=== PATIENT | female | born 1950 | race American Indian/Alaskan Native ===

== ENCOUNTER 2020-11-14 13:33 | Inpatient (IN) | payer SELFPAY ==
--- NOTE | 2020-11-14 13:36 | Emergency Department Report ---
HPI - General Time Seen by Provider: 11/14/20 13:33 - HPI HPI: This is a 70-year-old -[place] female who presents to the emergency department with altered mental status, a right-sided facial droop, and a left- sided gaze preference. The patient is unknown to me and does not appear to have been to this emergency department or hospital previously. Per EMS and family, the patient's last known well time was about 8 PM last night. She had not yet come out of her room or "woken up" yet for the day so the family became concerned and went to check on her and found her unresponsive. EMS found the patient to have a critically low blood sugar level and the patient was given an amp of D50. After receiving the glucose her blood sugar went up to about 250 but the patient did not have any change in her mental status. Per EMS, family says that she currently has some type of cancer that is not currently being treated. She also allegedly has a history of a previous CVA but it is unknown if she has any residual deficits. However family told EMS that she normally does ambulate and converse. I was later able to speak with the patient's daughter. The patient does have a history of a CVA from 2 years ago that left her with only some very mild aphasia in which "she sometimes has trouble getting the words out but eventually does." She has a history of primary lung cancer and the daughter says that it recently spread "everywhere." She is not a tobacco smoker. No known drug allergies. The patient is normally ambulatory and conversive without any altered mental status. ED Review of Systems ROS: Stated complaint: POSSIBLE STROKE Other details as noted in HPI Comment: Unobtainable due to pts medical conditions Physical Exam - Physical Exam Physical Exam: GENERAL: The patient is ill-appearing. HENT: Normocephalic. Atraumatic. Patient has moist mucous membranes. EYES: Pupils equal reactive to light bilaterally. Left-sided gaze preference. NECK: Supple. Trachea is midline. CHEST/LUNGS: Clear to auscultation. Shallow breaths with snoring respirations. HEART/CARDIOVASCULAR: Regular. There is no tachycardia. There is no murmur. ABDOMEN: Abdomen is soft, nontender. Patient has normal bowel sounds. There is no abdominal distention. SKIN: Skin is warm and dry. Patient has multiple soft tissue tumor-like growths around her neck. NEURO: Patient's eyes are open spontaneously but otherwise she appears nonresponsive. Nonverbal. Right-sided facial droop. She is nonresponsive to verbal or tactile stimuli. MUSCULOSKELETAL: There is no obvious deformity. ED Course - Consultations Consultation #1: 11/14/20 14:11 Patient was seen by the telemedicine neurologist to asked for the patient to receive a CT angiography of the head and neck to evaluate for large vessel occlusion. Both the neurologist, as well as the radiologist, read the CT scan as showing a subacute infarct, a chronic infarct, and a calcified meningioma. - ABG Interpretation Ph: 7.37 PCO2: 45 PO2: 71 Bicarbonate: 25 Interpretation: other (Mild hypoxemia) - Intubation Time Out Performed: Yes Sedative: Etomidate Mg Given: 20 Paralytic: Succinylcholine Mg Given: 70 Laryngoscope: Marco Size: 4 ET Tube Size: 7.5 Tube Secured Depth (cm): 24 Tube Secured Location: lips Tube Placement Confirmation: visualized tube passing t, equal breath sounds bilat, no breath sounds over epi, confirmation by capnometr Patient Tolerated Procedure: well Intubation Complications: none ED Medical Decision Making - Lab Data Result diagrams: 11/14/20 14:06 11/14/20 14:06 Lab Results 11/14/20 11/14/20 11/14/20 Range/Units 14:00 14:06 14:06 WBC 10.7 (4.5-11.0) K/mm3 RBC 5.27 H (3.65-5.03) M/mm3 Hgb 14.7 H (10.1-14.3) gm/dl Hct 43.7 H (30.3-42.9) % MCV 83 (79-97) fl MCH 28 (28-32) pg MCHC 34 (30-34) % RDW 15.8 H (13.2-15.2) % Plt Count 294 (140-440) K/mm3 Lymph % (Auto) 6.2 L (13.4-35.0) % [place] % (Auto) 4.5 (0.0-7.3) % Eos % (Auto) 0.0 (0.0-4.3) % Baso % (Auto) 0.1 (0.0-1.8) % Lymph # (Auto) 0.7 L (1.2-5.4) K/mm3 [place] # (Auto) 0.5 (0.0-0.8) K/mm3 Eos # (Auto) 0.0 (0.0-0.4) K/mm3 Baso # (Auto) 0.0 (0.0-0.1) K/mm3 Seg Neutrophils % 89.2 H (40.0-70.0) % Seg Neutrophils # 9.5 H (1.8-7.7) K/mm3 PT 12.8 (12.2-14.9) Sec. INR 0.98 (0.87-1.13) APTT 26.0 (24.2-36.6) Sec. Thrombin Time 19.8 H (15.1-19.6) Sec. ABG pH (7.320-7.450) POC ABG pCO2 (32.0-48.0) mmHg POC ABG pO2 (83-108) mmHg POC ABG HCO3 ABG O2 Saturation (0-100) POC ABG Base Excess ABG Hemoglobin (12.0-17.5) ABG Oxyhemoglobin (94-98) ABG Methemoglobin (0.0-1.5) ABG Sodium (136.0-145.0) mmol/L ABG Potassium (3.40-4.50) mmol/L ABG Chloride (98-107) mmol/L ABG Glucose (65-95) mg/dL Carboxyhemoglobin (0.5-1.5) FiO2 % Sodium (137-145) mmol/L Potassium (3.6-5.0) mmol/L Chloride (98-107) mmol/L Carbon Dioxide (22-30) mmol/L Anion Gap mmol/L BUN (7-17) mg/dL Creatinine (0.6-1.2) mg/dL Estimated GFR ml/min BUN/Creatinine Ratio % Glucose (65-100) mg/dL POC Glucose 150 H (70-105) mg/dL Calcium (8.4-10.2) mg/dL Total Bilirubin (0.1-1.2) mg/dL AST (5-40) units/L ALT (7-56) units/L Alkaline Phosphatase (35-129) units/L Ammonia (25-60) umol/L Total Creatine Kinase (30-135) units/L CK-MB (CK-2) (0.0-4.0) ng/mL CK-MB (CK-2) Rel Index (0-4) Troponin T (0.00-0.029) ng/mL Total Protein (6.3-8.2) g/dL Albumin (3.9-5) g/dL Albumin/Globulin Ratio % TSH (0.270-4.200) mlU/mL Arterial Blood Glucose (65-95) mg/dL Arterial Blood Ionized Calcium (4.6-5.3) mg/dL Urine Color (Yellow) Urine Turbidity (Clear) Urine pH (5.0-7.0) Ur Specific [place] (1.003-1.030) Urine Protein (Negative) mg/dL Urine Glucose (UA) (Negative) mg/dL Urine Ketones (Negative) mg/dL Urine Blood (Negative) Urine Nitrite (Negative) Urine Bilirubin (Negative) Urine Urobilinogen (<2.0) mg/dL Ur Leukocyte Esterase (Negative) Urine WBC (Auto) (0.0-6.0) /HPF Urine RBC (Auto) (0.0-6.0) /HPF U Epithel Cells (Auto) (0-13.0) /HPF Urine Mucus /HPF Urine Opiates Screen Urine Methadone Screen Ur Barbiturates Screen Ur Phencyclidine Scrn Ur Amphetamines Screen U Benzodiazepines Scrn Urine Cocaine Screen U Marijuana (THC) Screen Drugs of Abuse Note Plasma/Serum Alcohol (0-0.07) % 11/14/20 11/14/20 11/14/20 Range/Units 14:06 14:06 14:06 WBC (4.5-11.0) K/mm3 RBC (3.65-5.03) M/mm3 Hgb (10.1-14.3) gm/dl Hct (30.3-42.9) % MCV (79-97) fl MCH (28-32) pg MCHC (30-34) % RDW (13.2-15.2) % Plt Count (140-440) K/mm3 Lymph % (Auto) (13.4-35.0) % [place] % (Auto) (0.0-7.3) % Eos % (Auto) (0.0-4.3) % Baso % (Auto) (0.0-1.8) % Lymph # (Auto) (1.2-5.4) K/mm3 [place] # (Auto) (0.0-0.8) K/mm3 Eos # (Auto) (0.0-0.4) K/mm3 Baso # (Auto) (0.0-0.1) K/mm3 Seg Neutrophils % (40.0-70.0) % Seg Neutrophils # (1.8-7.7) K/mm3 PT (12.2-14.9) Sec. INR (0.87-1.13) APTT (24.2-36.6) Sec. Thrombin Time (15.1-19.6) Sec. ABG pH (7.320-7.450) POC ABG pCO2 (32.0-48.0) mmHg POC ABG pO2 (83-108) mmHg POC ABG HCO3 ABG O2 Saturation (0-100) POC ABG Base Excess ABG Hemoglobin (12.0-17.5) ABG Oxyhemoglobin (94-98) ABG Methemoglobin (0.0-1.5) ABG Sodium (136.0-145.0) mmol/L ABG Potassium (3.40-4.50) mmol/L ABG Chloride (98-107) mmol/L ABG Glucose (65-95) mg/dL Carboxyhemoglobin (0.5-1.5) FiO2 % Sodium 129 L (137-145) mmol/L Potassium 5.0 (3.6-5.0) mmol/L Chloride 93 L (98-107) mmol/L Carbon Dioxide 23 (22-30) mmol/L Anion Gap 18 mmol/L BUN 9 (7-17) mg/dL Creatinine 0.6 (0.6-1.2) mg/dL Estimated GFR > 60 ml/min BUN/Creatinine Ratio 15 % Glucose 155 H (65-100) mg/dL POC Glucose (70-105) mg/dL Calcium 8.9 (8.4-10.2) mg/dL Total Bilirubin 0.60 (0.1-1.2) mg/dL AST 38 (5-40) units/L ALT 16 (7-56) units/L Alkaline Phosphatase 92 (35-129) units/L Ammonia 33.0 (25-60) umol/L Total Creatine Kinase 185 H (30-135) units/L CK-MB (CK-2) 1.1 (0.0-4.0) ng/mL CK-MB (CK-2) Rel Index 0.5 (0-4) Troponin T 0.010 (0.00-0.029) ng/mL Total Protein 10.4 H (6.3-8.2) g/dL Albumin 3.7 L (3.9-5) g/dL Albumin/Globulin Ratio 0.6 % TSH (0.270-4.200) mlU/mL Arterial Blood Glucose (65-95) mg/dL Arterial Blood Ionized Calcium (4.6-5.3) mg/dL Urine Color (Yellow) Urine Turbidity (Clear) Urine pH (5.0-7.0) Ur Specific [place] (1.003-1.030) Urine Protein (Negative) mg/dL Urine Glucose (UA) (Negative) mg/dL Urine Ketones (Negative) mg/dL Urine Blood (Negative) Urine Nitrite (Negative) Urine Bilirubin (Negative) Urine Urobilinogen (<2.0) mg/dL Ur Leukocyte Esterase (Negative) Urine WBC (Auto) (0.0-6.0) /HPF Urine RBC (Auto) (0.0-6.0) /HPF U Epithel Cells (Auto) (0-13.0) /HPF Urine Mucus /HPF Urine Opiates Screen Urine Methadone Screen Ur Barbiturates Screen Ur Phencyclidine Scrn Ur Amphetamines Screen U Benzodiazepines Scrn Urine Cocaine Screen U Marijuana (THC) Screen Drugs of Abuse Note Plasma/Serum Alcohol 0.01 (0-0.07) % 11/14/20 11/14/20 11/14/20 Range/Units 14:06 14:42 14:48 WBC (4.5-11.0) K/mm3 RBC (3.65-5.03) M/mm3 Hgb (10.1-14.3) gm/dl Hct (30.3-42.9) % MCV (79-97) fl MCH (28-32) pg MCHC (30-34) % RDW (13.2-15.2) % Plt Count (140-440) K/mm3 Lymph % (Auto) (13.4-35.0) % [place] % (Auto) (0.0-7.3) % Eos % (Auto) (0.0-4.3) % Baso % (Auto) (0.0-1.8) % Lymph # (Auto) (1.2-5.4) K/mm3 [place] # (Auto) (0.0-0.8) K/mm3 Eos # (Auto) (0.0-0.4) K/mm3 Baso # (Auto) (0.0-0.1) K/mm3 Seg Neutrophils % (40.0-70.0) % Seg Neutrophils # (1.8-7.7) K/mm3 PT (12.2-14.9) Sec. INR (0.87-1.13) APTT (24.2-36.6) Sec. Thrombin Time (15.1-19.6) Sec. ABG pH 7.37 (7.320-7.450) POC ABG pCO2 45.9 (32.0-48.0) mmHg POC ABG pO2 71.3 L (83-108) mmHg POC ABG HCO3 25.9 ABG O2 Saturation 93.5 (0-100) POC ABG Base Excess 0.3 ABG Hemoglobin 12.6 (12.0-17.5) ABG Oxyhemoglobin 92.6 L (94-98) ABG Methemoglobin 0.3 (0.0-1.5) ABG Sodium 136.5 (136.0-145.0) mmol/L ABG Potassium 3.5 (3.40-4.50) mmol/L ABG Chloride 103.0 (98-107) mmol/L ABG Glucose 118 H (65-95) mg/dL Carboxyhemoglobin 0.7 (0.5-1.5) FiO2 % 40 Sodium (137-145) mmol/L Potassium (3.6-5.0) mmol/L Chloride (98-107) mmol/L Carbon Dioxide (22-30) mmol/L Anion Gap mmol/L BUN (7-17) mg/dL Creatinine (0.6-1.2) mg/dL Estimated GFR ml/min BUN/Creatinine Ratio % Glucose (65-100) mg/dL POC Glucose (70-105) mg/dL Calcium (8.4-10.2) mg/dL Total Bilirubin (0.1-1.2) mg/dL AST (5-40) units/L ALT (7-56) units/L Alkaline Phosphatase (35-129) units/L Ammonia (25-60) umol/L Total Creatine Kinase (30-135) units/L CK-MB (CK-2) (0.0-4.0) ng/mL CK-MB (CK-2) Rel Index (0-4) Troponin T (0.00-0.029) ng/mL Total Protein (6.3-8.2) g/dL Albumin (3.9-5) g/dL Albumin/Globulin Ratio % TSH 1.450 (0.270-4.200) mlU/mL Arterial Blood Glucose 118 H (65-95) mg/dL Arterial Blood Ionized Calcium 4.4 L (4.6-5.3) mg/dL Urine Color (Yellow) Urine Turbidity (Clear) Urine pH (5.0-7.0) Ur Specific [place] (1.003-1.030) Urine Protein (Negative) mg/dL Urine Glucose (UA) (Negative) mg/dL Urine Ketones (Negative) mg/dL Urine Blood (Negative) Urine Nitrite (Negative) Urine Bilirubin (Negative) Urine Urobilinogen (<2.0) mg/dL Ur Leukocyte Esterase (Negative) Urine WBC (Auto) (0.0-6.0) /HPF Urine RBC (Auto) (0.0-6.0) /HPF U Epithel Cells (Auto) (0-13.0) /HPF Urine Mucus /HPF Urine Opiates Screen Presumptive negative Urine Methadone Screen Presumptive negative Ur Barbiturates Screen Presumptive negative Ur Phencyclidine Scrn Presumptive negative Ur Amphetamines Screen Presumptive negative U Benzodiazepines Scrn Presumptive negative Urine Cocaine Screen Presumptive negative U Marijuana (THC) Screen Presumptive negative Drugs of Abuse Note Disclamer Plasma/Serum Alcohol (0-0.07) % 11/14/20 Range/Units 16:01 WBC (4.5-11.0) K/mm3 RBC (3.65-5.03) M/mm3 Hgb (10.1-14.3) gm/dl Hct (30.3-42.9) % MCV (79-97) fl MCH (28-32) pg MCHC (30-34) % RDW (13.2-15.2) % Plt Count (140-440) K/mm3 Lymph % (Auto) (13.4-35.0) % [place] % (Auto) (0.0-7.3) % Eos % (Auto) (0.0-4.3) % Baso % (Auto) (0.0-1.8) % Lymph # (Auto) (1.2-5.4) K/mm3 [place] # (Auto) (0.0-0.8) K/mm3 Eos # (Auto) (0.0-0.4) K/mm3 Baso # (Auto) (0.0-0.1) K/mm3 Seg Neutrophils % (40.0-70.0) % Seg Neutrophils # (1.8-7.7) K/mm3 PT (12.2-14.9) Sec. INR (0.87-1.13) APTT (24.2-36.6) Sec. Thrombin Time (15.1-19.6) Sec. ABG pH (7.320-7.450) POC ABG pCO2 (32.0-48.0) mmHg POC ABG pO2 (83-108) mmHg POC ABG HCO3 ABG O2 Saturation (0-100) POC ABG Base Excess ABG Hemoglobin (12.0-17.5) ABG Oxyhemoglobin (94-98) ABG Methemoglobin (0.0-1.5) ABG Sodium (136.0-145.0) mmol/L ABG Potassium (3.40-4.50) mmol/L ABG Chloride (98-107) mmol/L ABG Glucose (65-95) mg/dL Carboxyhemoglobin (0.5-1.5) FiO2 % Sodium (137-145) mmol/L Potassium (3.6-5.0) mmol/L Chloride (98-107) mmol/L Carbon Dioxide (22-30) mmol/L Anion Gap mmol/L BUN (7-17) mg/dL Creatinine (0.6-1.2) mg/dL Estimated GFR ml/min BUN/Creatinine Ratio % Glucose (65-100) mg/dL POC Glucose (70-105) mg/dL Calcium (8.4-10.2) mg/dL Total Bilirubin (0.1-1.2) mg/dL AST (5-40) units/L ALT (7-56) units/L Alkaline Phosphatase (35-129) units/L Ammonia (25-60) umol/L Total Creatine Kinase (30-135) units/L CK-MB (CK-2) (0.0-4.0) ng/mL CK-MB (CK-2) Rel Index (0-4) Troponin T (0.00-0.029) ng/mL Total Protein (6.3-8.2) g/dL Albumin (3.9-5) g/dL Albumin/Globulin Ratio % TSH (0.270-4.200) mlU/mL Arterial Blood Glucose (65-95) mg/dL Arterial Blood Ionized Calcium (4.6-5.3) mg/dL Urine Color Yellow (Yellow) Urine Turbidity Clear (Clear) Urine pH 6.0 (5.0-7.0) Ur Specific [place] 1.015 (1.003-1.030) Urine Protein 30 mg/dl (Negative) mg/dL Urine Glucose (UA) 150 (Negative) mg/dL Urine Ketones Neg (Negative) mg/dL Urine Blood Neg (Negative) Urine Nitrite Neg (Negative) Urine Bilirubin Neg (Negative) Urine Urobilinogen < 2.0 (<2.0) mg/dL Ur Leukocyte Esterase Neg (Negative) Urine WBC (Auto) 1.0 (0.0-6.0) /HPF Urine RBC (Auto) 1.0 (0.0-6.0) /HPF U Epithel Cells (Auto) < 1.0 (0-13.0) /HPF Urine Mucus Few /HPF Urine Opiates Screen Urine Methadone Screen Ur Barbiturates Screen Ur Phencyclidine Scrn Ur Amphetamines Screen U Benzodiazepines Scrn Urine Cocaine Screen U Marijuana (THC) Screen Drugs of Abuse Note Plasma/Serum Alcohol (0-0.07) % - Radiology Data Radiology results: report reviewed, image reviewed interpreted by me: Chest x-ray shows appropriate placement of the endotracheal tube just above the viral. No obvious pneumonia. No pneumothorax. CT head/brain wo con INDICATION / CLINICAL INFORMATION: 70 years Female; MAIN. TECHNIQUE: Routine CT head without contrast. All CT scans at this location are performed using CT dose reduction for ALARA by means of automated exposure cont rol. COMPARISON: None. FINDINGS: BRAIN / INTRACRANIAL CONTENTS: There is an older infarct involving the right basal ganglia with encephalomalacia and mild ex vacuo dilatation of the anterior right lateral ventricle. However, th ere is less distinct decreased attenuation along the anterior right periventricular region measuring 2.7 cm AP indicative of more subacute infarct at. There is relative preservation of the posterior right putamen. There are chronic ischemic changes along the left posterior periventricular region. There is otherwise mild cerebral white matter disease most consistent with microvascular angiopathy. There is a calcified lesion along the posterior left cerebellum measuring 2.3 cm transversely most consistent with a meningioma. This finding results in mass effect upon the posterior left cerebellum without significant vasogenic edema. There is no clear CT evidence of acute intracranial hemorrhage. ORBITS: No significant abnormality of visualized orbits. SINUSES / MASTOIDS: No significant abnormality in the visualized paranasal sinuses or mastoid air cells. CRANIOCERV ICAL JUNCTION: No significant abnormality. ADDITIONAL FINDINGS: There is mild incidental hyperostosis frontalis interna. There are also multiple well- circumscribed nodules involving scalp which also appear to be incidental and may reflect sebaceous cysts. IMPRESSION: 1. The findings are indicative of subacute infarct along the anterior right periventricular region as detailed above. There is a more chronic appearing infarct along the adjacent right basal ganglia. 2. The findings are most consistent with a 2.3 cm calcified meningioma along the posterior left cerebellum. CT angio head INDICATION / CLINICAL INFORMATION: 70 years Female; MAIN. TECHNIQUE: Thin cut axial images obtained through the head during IV bolus contrast administration. Sagittal, coronal, and 3 plane MIP reconstructions performed by the technologist. NASCET type criteria used evaluate stenoses. Automated exposure control utilized for radiation reduction purposes. COMPARISON: None available. FINDINGS: INTERNAL CAROTID ARTERIES: No hemodynamically significant narrowing appreciated. However, there is mild narrowing in the anterior genu of the cavernous portion of the right internal c arotid artery related to atherosclerotic disease. Overall, the atherosclerotic disease is greater on the right than the left. The left internal carotid artery is dominant when compared with the right, related to hypoplastic A1 segment on the right. VERTEBROBASILAR SYSTEM: No significant narrowing appreciated. DISTAL BRANCHES: Distal branches of the anterior, middle, and posterior cerebral arteries are fairly symmetric in appearance and number. As noted above, the A1 segment on the right is hypoplastic. Mild to moderate narrowing is seen in the distal M1 segment on the left. No signs of thrombus appreciated. Areas of mild narrowing are seen in the proximal posterior cerebral arteries bilaterally. ANEURYSM: None identified. ADDITIONAL FINDINGS: Old corpus striatal infarct suggested on the right. Developmental venous anomaly seen in the inferior temporal gyrus on the left, somewhat anteriorly. Presumed meningioma seen along the lateral aspect of the tentorium cerebelli on the left, projecting into the adjacent posterior fossa. There is mass effect on the left transverse sinus. The right transverse sinus and right internal jugular veins are asymmetrically prominent, compared with the left. Subcutaneous, well-circumscribed, areas of soft tissue swelling seen on the left. Findings may be related to small sebaceous cysts. However, clinical correlation is recommended. No signs of under lying calvarial abnormality. Similar findings seen elsewhere along the calvarium, bilaterally. Small, well-circumscribed parotid lesions seen peripherally on the left, superficially-pleomorphic adenoma might be considered. IMPRESSION: 1. No signs of large vessel occlusion by thrombus on this CTA of the head. 2. Area of narrowing identified, as described above. 3. Subcutaneous nodules and left parotid lesion, as described above. In addition to the above- mentioned diagnoses, metastatic disease has to be considered, given findings on this CTA of the neck, there is suggestion of diffuse lung parenchymal and subcutaneous nodules. CTA neck without and with intravenous contrast material CLINICAL HISTORY: MAIN TECHNIQUE: Following acquisition of a timing bolus 0.625 mm thick contiguous axial scans were obtained from aortic arch to the skull base during rapid bolus intravenous contrast infusion. In addition to evaluation of axial source images multiplanar reconstructions were produced and reviewed for this report. 3 plane MIP reconstructions were produced and reviewed. Contrast dose report: Omnipaque 350: 100 ml, administered intravenously All CT examinations performed at this facility utilize modulated dose reduction, iterative reconstruction or weight- based dosing, as appropriate, to obtain a radiation dose which is as low as can reasonably be achieved. FINDINGS: Thoracic aorta:No abnormalities are identified along the course of the thoracic aorta..The origins of the great vessels have an unremarkable appearance. Brachiocephalic artery, left common carotid artery origin and left subclavian artery all have an unremarkable appearance. Right carotid artery:No abnormalities are seen along the course of the RCCA, at the right carotid bifurcation or along the cervical portions of the SINTIA. Left carotid artery: No abnormalities are noted along the course of the left common carotid artery, at the left carotid bifurcation or along the course of the cervical segments of the LICA. Posterior circulation:The vertebral arteries have an unremarkable appearance. Both vertebral arteries contribute to the basilar artery origin. The basilar artery has an unremarkable appearance. The degree of stenosis, if any, is determined utilizing NASCET like criteria. In this case there is no indication of hemodynamically significant stenosis at the carotid bifurcations or elsewhere. Evaluation of the lungs is remarkable for multiple (too numerous to count) metastatic deposits ranging in size from several millimeters in diameter up to 3.5 cm in greatest dimension. Additionally noted is a large is dominant mass located posterior to the viral. Based on location of the nasogastric tube this large mass displaces the esophagus infarct the left of the midline. The mass produces prominent compression of the right and left main bronchi, left lower lobe bronchus and bronchus intermedius. These findings reflect the presence of extensive pulmonary and mediastinal metastases. Multiple low-attenuation lesions are seen within the thyroid gland. Multinodular goiter could be considered. In light of findings in the lung apices the possibility of metastatic disease to the thyroid gland is considered. There is a large mass in the right supraclavicular fossa likely a conglomerate aydee metastasis. Multiple subcutaneous metastases are also observed. Evaluation of the cervical spine is remarkable for widespread cervical spondylosis. IMPRESSION: 1. No indication of hemodynamically significant stenosis at the carotid bifurcations or elsewhere. 2. Widespread metastatic disease to lung, superior mediastinum, right supraclavicular fossa and possibly thyroid gland. In addition innumerable subcutaneous metastases are identified. - Medical Decision Making This patient presents to the emergency department as a code stroke. Family found her unresponsive this morning/early afternoon after having a last known well time of last night around 8 PM. Initially EMS found the patient to have hypoglycemia with a critically low blood sugar. After receiving a dose of D50 the patient's blood sugar went up to around 200 but the patient still had deficits. The patient is nonverbal with a right-sided facial droop and a left-sided gaze preference. She had a CT scan of the head without contrast that did not show any bleed or l arge vessel occlusion. She was seen by the telemedicine neurologist to recommended CT angiography studies of the head and neck. Shortly after returning from the initial CT scan of the head without contrast the patient began having snoring respirations and very shallow breaths. She was intubated for protection of airway. Chest x-ray shows appropriate placement of the endotracheal tube. No pneumonia or pneumothorax. Patient later had CT angiography of the head and neck that does not show any large vessel occlusion but there are multiple areas of metastasis throughout the head and neck. The patient's labs have been mostly unremarkable. She is currently on a propofol drip for sedation. [facility] has been contacted and consulted. The patient has been accepted for admission by the hospitalist, Dr. Salmeron. Critical Care Time: Yes Critical care time in (mins) excluding proc time.: 40 Critical care attestation.: If time is entered above; I have spent that time in minutes in the direct care of this critically ill patient, excluding procedure time. Critical care time was spent on this patient in doing her initial evaluation, multiple reevaluations, ordering and interpretation of labs and imaging, discussion with the telemedicine neurologist, discussion with the patient's daughter. This does not include the time spent doing the intubation procedure. Critical Care Time: 40 minutes ED Disposition Clinical Impression: Acute hypoxemic respiratory failure, Metabolic encephalopathy CVA (cerebral vascular accident) Qualifiers: CVA mechanism: unspecified Qualified Code(s): I63.9 - Cerebral infarction, unspecified Metastatic lung cancer (metastasis from lung to other site) Qualifiers: Laterality: right Qualified Code(s): C34.91 - Malignant neoplasm of unspecified part of right bronchus or lung Disposition: OP ADMIT IP TO THIS HOSP Is pt being admited?: Yes Condition: Serious Time of Disposition: 18:09
[2020-11-14] MEDS ORDERED: ETOMIDATE 20 MG/10 ML INJ IV ONE ×2 (13:50)
[2020-11-14] MEDS ORDERED: SUCCINYLCHOLINE CHLORIDE 200 MG/10 ML INJ MDV ONE (13:50)
[2020-11-14] MEDS ORDERED: LIP THERAPY VASELINE TP PRN (14:00)
[2020-11-14] MEDS ORDERED: MIDAZOLAM 5 MG/5 ML INJ MDV IV NR (14:00)
[2020-11-14] MEDS ORDERED: MINERAL OIL/PETROLATUM, WHITE OPHTH OINT 3.5 GM OU PRN (14:00)
[2020-11-14] MEDS ORDERED: MIDAZOLAM 2 MG/2 ML INJ IV SCH (14:00)
--- NOTE | 2020-11-14 14:03 | Cat Scan Report ---
CT head/brain wo con INDICATION / CLINICAL INFORMATION: 70 years Female; MAIN. TECHNIQUE: Routine CT head without contrast. All CT scans at this location are performed using CT dos e reduction for ALARA by means of automated exposure control. COMPARISON: None. FINDINGS: BRAIN / INTRACRANIAL CONTENTS: There is an older infarct involving the right basal ganglia with encep halomalacia and mild ex vacuo dilatation of the anterior right lateral ventricle. However, there is l ess distinct decreased attenuation along the anterior right periventricular region measuring 2.7 cm A P indicative of more subacute infarct at. There is relative preservation of the posterior right putam en. There are chronic ischemic changes along the left posterior periventricular region. There is otherwise mild cerebral white matter disease most consistent with microvascular angiopathy. There is a calcified lesion along the posterior left cerebellum measuring 2.3 cm transversely most co nsistent with a meningioma. This finding results in mass effect upon the posterior left cerebellum wi thout significant vasogenic edema. There is no clear CT evidence of acute intracranial hemorrhage. ORBITS: No significant abnormality of visualized orbits. SINUSES / MASTOIDS: No significant abnormality in the visualized paranasal sinuses or mastoid air cassandra ls. CRANIOCERVICAL JUNCTION: No significant abnormality. ADDITIONAL FINDINGS: There is mild incidental hyperostosis frontalis interna. There are also multiple well-circumscribed nodules involving scalp which also appear to be incidental and may reflect sebace ous cysts. IMPRESSION: 1. The findings are indicative of subacute infarct along the anterior right periventricular region as detailed above. There is a more chronic appearing infarct along the adjacent right basal ganglia. 2. The findings are most consistent with a 2.3 cm calcified meningioma along the posterior left cereb ellum. The study was specified as code stroke and called emergently to the ER at 12:37 PM Central standard t katey. Signer Name: Vignesh Lyn MD Signed: 11/14/2020 1:58 PM Workstation Name: [id number]
--- NOTE | 2020-11-14 14:06 | Consultation ---
History of Present Illness History of present illness: [facility] Consult Note # Demographics Consult Type: Acute Stroke Level 2 (4.5-24 hrs) Patient Location: Emergency Room First Name: Alexandra Last Name: Brown Date of : 1950 Age: 70 Gender: Female Time of Initial Page ( Time): 11/14/2020, 13:35 Time of Return Call ( Time): 11/14/2020, 13:35 # HPI History: 70 year-old female was found down unresponsive this morning. Mental status did not improved with correction of hypoglycemia. She has fixed left gaze. NIHSS is 26. Head CT with a left cerebellar hyperdensity suggestive of a calcified meningioma (prelim review, need formal radiology read). # Scores Time of exam and NIHSS ( Time): 11/14/2020, 13:37 Level of Consciousness 1a: [3] = Responds only with reflex motor or unresponsive LOC Questions 1b: [2] = Answers neither correctly LOC Commands 1c: [2] = Performs neither correctly Best Gaze 2: [2] = Forced deviation Visual 3: [0] = No visual loss Facial Palsy 4: [0] = Normal symmetrical movements Motor Arm Left 5a: [3] = No effort against gravity Motor Arm Right 5b: [3] = No effort against gravity Motor Leg Left 6a: [3] = No effort against gravity Motor Leg Right 6b: [3] = No effort against gravity Limb Ataxia 7: [0] = Absent Sensory 8: [0] = Normal Best Language 9: [3] = Mute Dysarthria 10: [2] = Severe dysarthria Extinction and Inattention 11: [0] = No abnormality NIHSS Total: 26 # Exam Vitals: vital signs reviewed # Assessment Impression: Acute encephalopathy with left gaze deviation - concerning for stroke or seizure # Plan Thrombolytic/Intervention: NOT IV Thrombolytic or IA Intervention Thrombolytic Exclusion: > 4.5 hours Intraarterial Exclusion: CTA pending Labs: CBC, comprehensive metabolic panel, hemoglobin A1c, lipid panel Imaging: (urgency: STAT in ED): CT Angiogram Head and CT Angiogram Neck AND call back with results if abnormal Imaging: (urgency: routine admission): MRI Brain without contrast Diagnostic Test: echo without bubble study Therapy/Evaluation: NPO until swallow evaluation, PT/OT evaluation, speech/swallow consultation Medication: aspirin 325 mg daily, start statin with goal of LDL < 70 Other: permissive hypertension, telemetry monitoring, I have discussed my recommendations with the referring provider Disposition: admit Medications and Allergies Active Meds: Active Medications Hydrophilic Ointment (Lip Therapy Vaseline) 1 applic TP Q2HR PRN PRN Reason: Dry Lips Propofol (Diprivan 10 Mg/Ml) 1,000 mg in 100 mls @ 0 mls/hr IV TITR GLORIA; Protocol Midazolam HCl (Midazolam 5 Mg/5 Ml Inj Mdv) 2 mg IV ONCE NR Multi-Ingred Cream/Lotion/Oil/Oint (Mineral Oil/Petrolatum, White Ophth Oint 3.5 Gm) 1 applic OU Q4HR PRN PRN Reason: Dry Eye(s)
[2020-11-14] MEDS ORDERED: SUCCINYLCHOLINE CHLORIDE 200 MG/10 ML INJ MDV IV ONE (14:11)
[2020-11-14 14:21] LABS: Basophils % (Auto) 0.1 % (0.0-1.8); Hematocrit 43.7 % (30.3-42.9); Hemoglobin 14.7 gm/dl (10.1-14.3); Lymphocytes # (Auto) 0.7 K/mm3 (1.2-5.4); Lymphocytes % (Auto) 6.2 % (13.4-35.0); Mean Corpuscular HGB Conc 34 % (30-34); Mean Corpuscular Volume 83 fl (79-97); Monocytes # (Auto) 0.5 K/mm3 (0.0-0.8); Monocytes % (Auto) 4.5 % (0.0-7.3); Platelet Count 294 K/mm3 (140-440); Red Blood Count 5.27 M/mm3 (3.65-5.03); Red Cell Distribution Width 15.8 % (13.2-15.2)
[2020-11-14 14:33] LABS: INR 0.98 (0.87-1.13)
[2020-11-14 14:34] LABS: Thrombin Time 19.8 Sec. (15.1-19.6)
--- NOTE | 2020-11-14 14:34 | XRay Report ---
CHEST 1 VIEW INDICATION / CLINICAL INFORMATION: ETT placement. COMPARISON: None available. FINDINGS: SUPPORT DEVICES: Tracheal tube, nasogastric tube HEART / MEDIASTINUM: No significant abnormality. LUNGS / PLEURA: Numerous pulmonary nodules with a large right infrahilar mass No pneumothorax. ADDITIONAL FINDINGS: No significant additional findings. IMPRESSION: Endotracheal tube has been placed and is approximately 2 cm above the viral. Numerous pulmonary nodu les and masses are seen Signer Name: Kennedy Quintero MD FACR Signed: 11/14/2020 2:30 PM Workstation Name: [id number]
--- NOTE | 2020-11-14 14:36 | XRay Report ---
ABDOMEN ONE VIEW INDICATION / CLINICAL INFORMATION: OG tube placement. COMPARISON: None available. FINDINGS: Nasogastric tube is present with the tip superimposed over the expected position of the gastric body Signer Name: Kennedy Quintero MD FACR Signed: 11/14/2020 2:31 PM Workstation Name: [id number]
[2020-11-14] MEDS ORDERED: SODIUM CHLORIDE 0.9% 1000 ML 1,000 ML IV ONE (14:47)
[2020-11-14 15:08] LABS: Alanine Aminotransferase 16 units/L (7-56); BUN/Creatinine Ratio 15; Blood Urea Nitrogen 9 mg/dL (7-17); Calcium 8.9 mg/dL (8.4-10.2)
[2020-11-14 15:09] LABS: Albumin 3.7 g/dL (3.9-5); Creatine Kinase MB 1.1 ng/mL (0.0-4.0); Hemolysis Index 46
[2020-11-14 16:22] LABS: Bilirubin,Urine NEG (Negative); Blood,Urine NEG (Negative); Color,Urine Yellow (Yellow); Mucus,Urine FEW /HPF; Urobilinogen,Urine < 2.0 mg/dL (<2.0)
[2020-11-14 16:44] LABS: Amphetamine Screen,Urine PRESUMPTIVE NEGATIVE; Benzodiazepines Screen,Urine PRESUMPTIVE NEGATIVE; Cannabinoid Screen,Urine PRESUMPTIVE NEGATIVE; Cocaine Screen,Urine PRESUMPTIVE NEGATIVE; Methadone Screen,Urine PRESUMPTIVE NEGATIVE; Opiate Screen,Urine PRESUMPTIVE NEGATIVE
--- NOTE | 2020-11-14 17:02 | History and Physical Report ---
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 Patient is intubated and on ventilatory support at the time my evaluation and is unable to provide history. Patient history is provided by EMS staff, ED staff, as well as patient daughter who was available by telephone to discuss patient history. As per daughter, the patient was in her usual state of health with a no last known well time of 2000 hrs. overnight. Patient was found unresponsive by family this morning. EMS was notified and upon arrival the patient was found to be in distress and subsequently transported to [facility] for further care and evaluation of the aforementioned symptoms. The patient was seen and evaluated in the emergency department. All lab and imaging studies reviewed. The patient was found to have a focal neurologic deficit with symptoms consistent with CVA. The patient was also found to have hypoxemia as well as an inability to protect her airway and was intubated and placed on ventilatory support. The patient was also found to have acute encephalopathy, as well as metastatic lung cancer. The patient was admitted to ICU due to increased risk of the development of multiple organ system failure. Patient found to have poor prognosis. Patient daughter denies reports of fever, chills, chest pain, palpitation, productive cough, skin rash, recent ill contacts, or known exposure to COVID-19. No prior admission for review. No medication listed for reconciliation at the time of my admission. Advanced care planning conducted in ED. neurology team consulted in ED. Critical care team notified in ED. Past History Past Medical History: cancer, stroke Past Surgical History: No surgical history, Other (Reviewed) Social history: . denies: smoking, alcohol abuse, prescription drug abuse Family history: hypertension Medications and Allergies Allergies Allergy/AdvReac Type Severity Reaction Status Date / Time No Known Allergies Allergy Unverified 11/14/20 14:09 Active Meds: Active Medications Hydrophilic Ointment (Lip Therapy Vaseline) 1 applic TP Q2HR PRN PRN Reason: Dry Lips Propofol (Diprivan 10 Mg/Ml) 1,000 mg in 100 mls @ 0 mls/hr IV TITR GLORIA; Protocol Sodium Chloride (Nacl 0.9% 1000 Ml) 1,000 mls @ 125 mls/hr IV ONCE ONE Stop: 11/14/20 22:46 Last Admin: 11/14/20 16:03 Dose: 125 mls/hr Documented by: Multi-Ingred Cream/Lotion/Oil/Oint (Mineral Oil/Petrolatum, White Ophth Oint 3.5 Gm) 1 applic OU Q4HR PRN PRN Reason: Dry Eye(s) Review of Systems ROS unobtainable: due to endotracheal tube, due to mental status Exam - Constitutional Vitals: Temp Pulse Resp BP Pulse Ox 80 14 104/53 95 11/14/20 16:56 11/14/20 15:30 11/14/20 16:56 11/14/20 16:56 General appearance: Present: severe distress, cachectic - EENT Eyes: Present: miosis ENT: hearing decreased - Neck Neck: Present: supple, normal ROM - Respiratory Respiratory effort: labored Respiratory: bilateral: diminished, rhonchi - Cardiovascular Heart Sounds: Present: S1 & S2. Absent: rub, click - Extremities Extremities: pulses symmetrical, No edema Peripheral Pulses: within normal limits - Abdominal General gastrointestinal: Present: soft, non-tender, non-distended, normal bowel sounds Female genitourinary: Present: normal - Musculoskeletal Musculoskeletal: generalized weakness - Psychiatric Psychiatric: no appropriate mood/affect, no intact judgment & insight, no memory intact - Neurologic Neurologic: no CNII-XII intact, focal deficits, no moves all extremities, no gait normal HEART Score - HEART Score Troponin: Troponin T 0.010 ng/mL (0.00-0.029) 11/14/20 14:06 Results - Labs CBC & Chem 7: 11/14/20 14:06 11/14/20 14:06 Labs: Abnormal lab results 11/14/20 11/14/20 11/14/20 Range/Units 14:00 14:06 14:06 RBC 5.27 H (3.65-5.03) M/mm3 Hgb 14.7 H (10.1-14.3) gm/dl Hct 43.7 H (30.3-42.9) % RDW 15.8 H (13.2-15.2) % Lymph % (Auto) 6.2 L (13.4-35.0) % Lymph # (Auto) 0.7 L (1.2-5.4) K/mm3 Seg Neutrophils % 89.2 H (40.0-70.0) % Seg Neutrophils # 9.5 H (1.8-7.7) K/mm3 Thrombin Time 19.8 H (15.1-19.6) Sec. POC ABG pO2 (83-108) mmHg ABG Oxyhemoglobin (94-98) ABG Glucose (65-95) mg/dL Sodium (137-145) mmol/L Chloride (98-107) mmol/L Glucose (65-100) mg/dL POC Glucose 150 H (70-105) mg/dL Total Creatine Kinase (30-135) units/L Total Protein (6.3-8.2) g/dL Albumin (3.9-5) g/dL Arterial Blood Glucose (65-95) mg/dL Arterial Blood Ionized Calcium (4.6-5.3) mg/dL 11/14/20 11/14/20 Range/Units 14:06 14:42 RBC (3.65-5.03) M/mm3 Hgb (10.1-14.3) gm/dl Hct (30.3-42.9) % RDW (13.2-15.2) % Lymph % (Auto) (13.4-35.0) % Lymph # (Auto) (1.2-5.4) K/mm3 Seg Neutrophils % (40.0-70.0) % Seg Neutrophils # (1.8-7.7) K/mm3 Thrombin Time (15.1-19.6) Sec. POC ABG pO2 71.3 L (83-108) mmHg ABG Oxyhemoglobin 92.6 L (94-98) ABG Glucose 118 H (65-95) mg/dL Sodium 129 L (137-145) mmol/L Chloride 93 L (98-107) mmol/L Glucose 155 H (65-100) mg/dL POC Glucose (70-105) mg/dL Total Creatine Kinase 185 H (30-135) units/L Total Protein 10.4 H (6.3-8.2) g/dL Albumin 3.7 L (3.9-5) g/dL Arterial Blood Glucose 118 H (65-95) mg/dL Arterial Blood Ionized Calcium 4.4 L (4.6-5.3) mg/dL Assessment and Plan - Patient Problems (1) Acute hypoxemic respiratory failure Current Visit: Yes Status: Acute Plan to address problem: Patient intubated and placed on ventilatory support. Wean vent as tolerated, ABG, sedation holiday, daily spontaneous breathing trial, critical care team consulted in ED. The high probability of a clinically significant, sudden or life threatening deterioration of the [cardiac, pulmonary, neuro] system(s) required my full and direct attention, intervention and personal management. The aggregate critical care time was [90] minutes. This time is in addition to time spent performing reported procedures but includes the following: [x] Data Review and interpretation [x] Patient assessment and monitoring of vital signs [x] Documentation [x] Medication orders and management (2) Metastatic lung cancer (metastasis from lung to other site) Current Visit: Yes Status: Acute Qualifiers: Laterality: right Qualified Code(s): C34.91 - Malignant neoplasm of unspecified part of right bronchus or lung Plan to address problem: Supportive care. Pain management, chest x-ray. Patient daughter reports that patient declined treatment for metastatic lung cancer. (3) CVA (cerebral vascular accident) Current Visit: Yes Status: Acute Plan to address problem: CVA protocol: Teleneurology consulted in ED. Patient has poor prognosis. Further testing and care if patient becomes more medically stable. (4) Metabolic encephalopathy Current Visit: Yes Status: Acute Plan to address problem: CT head, neuro check, seizure precautions, supportive care. (5) Hyponatremia syndrome Current Visit: Yes Status: Acute Plan to address problem: IV fluid resuscitation therapy, BMP, repeat BMP in a.m. (6) DVT prophylaxis Current Visit: Yes Status: Acute (7) Advance care planning Current Visit: Yes Status: Acute Plan to address problem: Disease education conducted, care plan discussed, diagnoses discussed, prognosis discussed, patient daughter Miladis Escamilla, notified via telephone. Patient daughter informed of poor prognosis. Patient daughter acknowledges understanding instructions. Patient is full code for now. Patient daughter will contact family members and discussed patient's wishes. +30 minutes.
[2020-11-14] MEDS ORDERED: ALBUTEROL 2.5 MG/3 ML NEBU IH PRN (17:04)
--- NOTE | 2020-11-14 17:10 | Cat Scan Report ---
CTA neck without and with intravenous contrast material CLINICAL HISTORY: MAIN TECHNIQUE: Following acquisition of a timing bolus 0.625 mm thick contiguous axial scans were obtained from aort ic arch to the skull base during rapid bolus intravenous contrast infusion. In addition to evaluation of axial source images multiplanar reconstructions were produced and reviewed for this report. 3 osmani ne MIP reconstructions were produced and reviewed. Contrast dose report: Omnipaque 350: 100 ml, administered intravenously All CT examinations performed at this facility utilize modulated dose reduction, iterative reconstruc tion or weight-based dosing, as appropriate, to obtain a radiation dose which is as low as can reason ably be achieved. FINDINGS: Thoracic aorta:No abnormalities are identified along the course of the thoracic aorta..The origins of the great vessels have an unremarkable appearance. Brachiocephalic artery, left common carotid arter y origin and left subclavian artery all have an unremarkable appearance. Right carotid artery:No abnormalities are seen along the course of the RCCA, at the right carotid bif urcation or along the cervical portions of the SINTIA. Left carotid artery: No abnormalities are noted along the course of the left common carotid artery, a t the left carotid bifurcation or along the course of the cervical segments of the LICA. Posterior circulation:The vertebral arteries have an unremarkable appearance. Both vertebral arteries contribute to the basilar artery origin. The basilar artery has an unremarkable appearance. The degree of stenosis, if any, is determined utilizing NASCET like criteria. In this case there is no indication of hemodynamically significant stenosis at the carotid bifurcations or elsewhere. Evaluation of the lungs is remarkable for multiple (too numerous to count) metastatic deposits rangin g in size from several millimeters in diameter up to 3.5 cm in greatest dimension. Additionally noted is a large is dominant mass located posterior to the viral. Based on location of the nasogastric tu be this large mass displaces the esophagus infarct the left of the midline. The mass produces promine nt compression of the right and left main bronchi, left lower lobe bronchus and bronchus intermedius. These findings reflect the presence of extensive pulmonary and mediastinal metastases. Multiple low-attenuation lesions are seen within the thyroid gland. Multinodular goiter could be cons idered. In light of findings in the lung apices the possibility of metastatic disease to the thyroid gland is considered. There is a large mass in the right supraclavicular fossa likely a conglomerate n odal metastasis. Multiple subcutaneous metastases are also observed. Evaluation of the cervical spine is remarkable for widespread cervical spondylosis. IMPRESSION: 1. No indication of hemodynamically significant stenosis at the carotid bifurcations or elsewhere. 2. Widespread metastatic disease to lung, superior mediastinum, right supraclavicular fossa and possi jules thyroid gland. In addition innumerable subcutaneous metastases are identified. IMPORTANT FINDING: Time of Communication (TELECOMMUNICATIONS LINE MECHANIC/CDT): 1600 hours Central standard time Licensed Practitioner Receiving Report: Dr. Arteaga of the [facility] emergency d epartment. Signer Name: Andrea Arizmendi MD Signed: 11/14/2020 5:05 PM Workstation Name: [id number]
--- NOTE | 2020-11-14 17:13 | Cat Scan Report ---
CT angio head INDICATION / CLINICAL INFORMATION: 70 years Female; MAIN. TECHNIQUE: Thin cut axial images obtained through the head during IV bolus contrast administration. S agittal, coronal, and 3 plane MIP reconstructions performed by the technologist. NASCET type criteria used evaluate stenoses. Automated exposure control utilized for radiation reduction purposes. COMPARISON: None available. FINDINGS: INTERNAL CAROTID ARTERIES: No hemodynamically significant narrowing appreciated. However, there is mi ld narrowing in the anterior genu of the cavernous portion of the right internal carotid artery relat ed to atherosclerotic disease. Overall, the atherosclerotic disease is greater on the right than the left. The left internal carotid artery is dominant when compared with the right, related to hypoplastic A1 segment on the right. VERTEBROBASILAR SYSTEM: No significant narrowing appreciated. DISTAL BRANCHES: Distal branches of the anterior, middle, and posterior cerebral arteries are fairly symmetric in appearance and number. As noted above, the A1 segment on the right is hypoplastic. Mild to moderate narrowing is seen in the distal M1 segment on the left. No signs of thrombus appreci ated. Areas of mild narrowing are seen in the proximal posterior cerebral arteries bilaterally. ANEURYSM: None identified. ADDITIONAL FINDINGS: Old corpus striatal infarct suggested on the right. Developmental venous anomaly seen in the inferior temporal gyrus on the left, somewhat anteriorly. Presumed meningioma seen along the lateral aspect of the tentorium cerebelli on the left, projecting into the adjacent posterior fossa. There is mass effect on the left transverse sinus. The right trans verse sinus and right internal jugular veins are asymmetrically prominent, compared with the left. Subcutaneous, well-circumscribed, areas of soft tissue swelling seen on the left. Findings may be rel ated to small sebaceous cysts. However, clinical correlation is recommended. No signs of underlying c alvarial abnormality. Similar findings seen elsewhere along the calvarium, bilaterally. Small, well-circumscribed parotid lesions seen peripherally on the left, superficially-pleomorphic ad enoma might be considered. IMPRESSION: 1. No signs of large vessel occlusion by thrombus on this CTA of the head. 2. Area of narrowing identified, as described above. 3. Subcutaneous nodules and left parotid lesion, as described above. In addition to the above-mention ed diagnoses, metastatic disease has to be considered, given findings on this CTA of the neck, there is suggestion of diffuse lung parenchymal and subcutaneous nodules. Signer Name: David Estes MD, III Signed: 11/14/2020 5:08 PM Workstation Name: [id number]
--- NOTE | 2020-11-14 18:27 | Consultation ---
History of Present Illness Consult date: 11/14/20 Requesting physician: THERESE SANTIAGO Reason for consult: other (Acute Hypoxemic Resp Failure; Metastatic Lung CA) History of present illness: PULMONARY/CCM CONSULT NOTE (Full dictation # [id number]) Please see dictated notes for full details Past History Past Medical History: cancer, stroke Past Surgical History: No surgical history, Other (Reviewed) Social history: . denies: smoking, alcohol abuse, prescription drug abuse Family history: hypertension Medications and Allergies Allergies Allergy/AdvReac Type Severity Reaction Status Date / Time No Known Allergies Allergy Unverified 11/14/20 14:09 Active Meds: Active Medications Acetaminophen (Acetaminophen 325 Mg/10.15 Ml Oral Liqd Unit Dose) 650 mg FEEDTUBE Q6H PRN PRN Reason: Pain MILD(1-3)/Fever >100.5/PICKARD Albuterol (Albuterol 2.5 Mg/3 Ml Nebu) 2.5 mg IH Q3HRT PRN PRN Reason: Shortness Of Breath Hydrophilic Ointment (Lip Therapy Vaseline) 1 applic TP Q2HR PRN PRN Reason: Dry Lips Propofol (Diprivan 10 Mg/Ml) 1,000 mg in 100 mls @ 0 mls/hr IV TITR GLORIA; Protocol Sodium Chloride (Nacl 0.9% 1000 Ml) 1,000 mls @ 125 mls/hr IV ONCE ONE Stop: 11/14/20 22:46 Last Admin: 11/14/20 16:03 Dose: 125 mls/hr Documented by: Multi-Ingred Cream/Lotion/Oil/Oint (Mineral Oil/Petrolatum, White Ophth Oint 3.5 Gm) 1 applic OU Q4HR PRN PRN Reason: Dry Eye(s) Sodium Chloride (Sodium Chloride 0.9% 10 Ml Flush Syringe) 10 ml IV BID GLORIA Sodium Chloride (Sodium Chloride 0.9% 10 Ml Flush Syringe) 10 ml IV PRN PRN PRN Reason: LINE FLUSH Physical Examination Vital signs: Vital Signs Temp Pulse Resp BP Pulse Ox 98.3 F 87 10 L 154/98 99 11/14/20 14:00 11/14/20 14:00 11/14/20 14:00 11/14/20 14:00 11/14/20 14:00 Results - Laboratory Findings CBC and BMP: 11/15/20 04:19 11/15/20 04:19 ABG ABG pH 7.37 (7.320-7.450) 11/14/20 14:42 POC ABG pCO2 45.9 mmHg (32.0-48.0) 11/14/20 14:42 POC ABG pO2 71.3 mmHg (83-108) L 11/14/20 14:42 POC ABG HCO3 25.9 11/14/20 14:42 ABG O2 Saturation 93.5 (0-100) 11/14/20 14:42 PT/INR, D-dimer PT 12.8 Sec. (12.2-14.9) 11/14/20 14:06 INR 0.98 (0.87-1.13) 11/14/20 14:06 Abnormal lab findings: Abnormal Labs 11/14/20 11/14/20 11/14/20 14:00 14:06 14:06 RBC 5.27 H Hgb 14.7 H Hct 43.7 H RDW 15.8 H Lymph % (Auto) 6.2 L Lymph # (Auto) 0.7 L Seg Neutrophils % 89.2 H Seg Neutrophils # 9.5 H Thrombin Time 19.8 H POC ABG pO2 ABG Oxyhemoglobin ABG Glucose Sodium Chloride Glucose POC Glucose 150 H Total Creatine Kinase Total Protein Albumin Arterial Blood Glucose Arterial Blood Ionized Calcium 11/14/20 11/14/20 14:06 14:42 RBC Hgb Hct RDW Lymph % (Auto) Lymph # (Auto) Seg Neutrophils % Seg Neutrophils # Thrombin Time POC ABG pO2 71.3 L ABG Oxyhemoglobin 92.6 L ABG Glucose 118 H Sodium 129 L Chloride 93 L Glucose 155 H POC Glucose Total Creatine Kinase 185 H Total Protein 10.4 H Albumin 3.7 L Arterial Blood Glucose 118 H Arterial Blood Ionized Calcium 4.4 L
[2020-11-15] MEDS ORDERED: DEXTROSE 50% IN WATER (25GM) 50 ML SYRINGE IV PRN (04:13)
[2020-11-15] MEDS: DEXTROSE 10% IN WATER 1,000 ML IV SCH ×2 (04:46→21:43)
[2020-11-15 04:59] LABS: Hematocrit 38.2 % (30.3-42.9); Hemoglobin 12.1 gm/dl (10.1-14.3); Mean Corpuscular HGB Conc 32 % (30-34); Mean Corpuscular Volume 83 fl (79-97); Platelet Count 297 K/mm3 (140-440); Red Blood Count 4.58 M/mm3 (3.65-5.03); Red Cell Distribution Width 15.9 % (13.2-15.2)
[2020-11-15 05:19] LABS: Alanine Aminotransferase 12 units/L (7-56); Albumin 2.7 g/dL (3.9-5); Blood Urea Nitrogen 13 mg/dL (7-17); Calcium 8.1 mg/dL (8.4-10.2); Hemolysis Index 19
[2020-11-15 05:20] LABS: BUN/Creatinine Ratio 22
[2020-11-15 05:26] LABS: Basophils % (Auto) 0.1 % (0.0-1.8); Lymphocytes # (Auto) 0.8 K/mm3 (1.2-5.4); Lymphocytes % (Auto) 8.1 % (13.4-35.0); Monocytes # (Auto) 0.7 K/mm3 (0.0-0.8)
--- NOTE | 2020-11-15 09:48 | XRay Report ---
CHEST 1 VIEW INDICATION / CLINICAL INFORMATION: follow up respiratory failure. COMPARISON: 11/14/2020 FINDINGS: SUPPORT DEVICES: Endotracheal tube, nasogastric tube HEART / MEDIASTINUM: No significant abnormality. LUNGS / PLEURA: Numerous pulmonary nodules and right infrahilar mass unchanged No pneumothorax. ADDITIONAL FINDINGS: No significant additional findings. IMPRESSION: No change in the appearance of the chest from yesterday Signer Name: Kennedy Quintero MD FACR Signed: 11/15/2020 9:44 AM Workstation Name: [email or web address]
[2020-11-15] MEDS: FAMOTIDINE 20 MG/2 ML INJ IV SCH ×2 (10:33→21:21)
[2020-11-15] MEDS ORDERED: PNEUMOCOCCAL 23 Valent 0.5 ML VIAL IM ONE (12:00)
--- NOTE | 2020-11-15 12:23 | Progress Note ---
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 Acute hypoxemic respiratory failure metastatic lung cancer Possible acute CVA Metabolic encephalopathy Hyponatremia hypoglycemia Hypoglycemia History of CVA with aphasia Vascular dementia Severe protein calorie malnutrition -Continue to monitor in the critical care with frequent neuro checkups -Patient currently intubated, critical care following -Discussed with patient daughter today and requesting for DNR and hospice service -We will continue current management and plan, will consult returned case inspector for hospice placement -Continue D5 10 for now to prevent hypoglycemia -DVT and GI prophylaxis The high probability of a clinically significant, sudden or life threatening deterioration of the [multi] system(s) required my full and direct attention, intervention and personal management. The aggregate critical care time was [35.] minutes. This time is in addition to time spent performing reported procedures but includes the following: [x] Data Review and interpretation [x] Patient assessment and monitoring of vital signs [x] Documentation [x] Medication orders and management Subjective Date of service: 11/15/20 Interval history: Patient seen and examined. Medical records and medication list reviewed. Patient remains intubated Discussed with daughter with clinical updates Also discussed with Dr. Harkins. Patient requested for DNR and hospice service by daughter Objective - Exam Narrative Exam: General appearance: Present: severe distress, cachectic - EENT Eyes: Present: miosis ENT: hearing decreased - Neck Neck: Present: supple, normal ROM - Respiratory Respiratory effort: labored Respiratory: bilateral: diminished, rhonchi - Cardiovascular Heart Sounds: Present: S1 & S2. Absent: rub, click - Extremities Extremities: pulses symmetrical, No edema Peripheral Pulses: within normal limits - Abdominal General gastrointestinal: Present: soft, non-tender, non-distended, normal bowel sounds Female genitourinary: Present: normal - Musculoskeletal Musculoskeletal: generalized weakness - Psychiatric Psychiatric: no appropriate mood/affect, no intact judgment & insight, no memory intact - Neurologic Neurologic: no CNII-XII intact, focal deficits, no moves all extremities, no gait normal - Constitutional Vitals: Vital Signs - 12hr 11/15/20 11/15/20 11/15/20 00:30 00:40 00:50 Temperature Pulse Rate 88 85 85 Pulse Rate [ From Monitor] Respiratory 21 17 19 Rate Blood Pressure 137/65 137/65 137/65 O2 Sat by Pulse 100 100 99 Oximetry 11/15/20 11/15/20 11/15/20 01:00 01:10 01:20 Temperature Pulse Rate 88 87 84 Pulse Rate [ From Monitor] Respiratory 19 17 Rate Blood Pressure 126/64 126/64 126/64 O2 Sat by Pulse 99 99 100 Oximetry 11/15/20 11/15/20 11/15/20 01:30 01:40 01:50 Temperature Pulse Rate 91 H 88 89 Pulse Rate [ From Monitor] Respiratory 16 19 Rate Blood Pressure 126/64 126/64 126/64 O2 Sat by Pulse 99 99 99 Oximetry 11/15/20 11/15/20 11/15/20 02:00 02:10 02:20 Temperature Pulse Rate 87 85 86 Pulse Rate [ From Monitor] Respiratory 15 20 Rate Blood Pressure 127/68 127/68 126/64 O2 Sat by Pulse 100 99 100 Oximetry 11/15/20 11/15/20 11/15/20 02:23 02:30 02:40 Temperature Pulse Rate 88 87 87 Pulse Rate [ From Monitor] Respiratory 16 16 Rate Blood Pressure 127/68 126/64 126/64 O2 Sat by Pulse 98 98 97 Oximetry 11/15/20 11/15/20 11/15/20 02:50 03:00 03:10 Temperature Pulse Rate 92 H 90 85 Pulse Rate [ From Monitor] Respiratory 20 20 15 Rate Blood Pressure 126/64 123/69 123/69 O2 Sat by Pulse 98 97 97 Oximetry 11/15/20 11/15/20 11/15/20 03:20 03:30 03:40 Temperature Pulse Rate 94 H 93 H 91 H Pulse Rate [ From Monitor] Respiratory 21 18 Rate Blood Pressure 123/69 123/69 123/69 O2 Sat by Pulse 98 98 98 Oximetry 11/15/20 11/15/20 11/15/20 03:50 04:00 04:10 Temperature 99.1 F Pulse Rate 87 82 90 Pulse Rate [ 82 From Monitor] Respiratory 20 16 18 Rate Blood Pressure 123/69 123/67 123/67 O2 Sat by Pulse 98 97 98 Oximetry 11/15/20 11/15/20 11/15/20 04:20 04:30 04:40 Temperature Pulse Rate 88 87 87 Pulse Rate [ From Monitor] Respiratory 19 17 20 Rate Blood Pressure 123/67 123/67 123/67 O2 Sat by Pulse 97 97 99 Oximetry 11/15/20 11/15/20 11/15/20 04:50 05:00 05:10 Temperature Pulse Rate 80 83 84 Pulse Rate [ From Monitor] Respiratory 15 19 18 Rate Blood Pressure 123/67 121/62 121/62 O2 Sat by Pulse 97 97 98 Oximetry 11/15/20 11/15/20 11/15/20 05:20 05:30 05:40 Temperature Pulse Rate 83 87 85 Pulse Rate [ From Monitor] Respiratory 18 18 Rate Blood Pressure 121/62 121/62 121/62 O2 Sat by Pulse 99 98 98 Oximetry 11/15/20 11/15/20 11/15/20 05:50 06:00 06:10 Temperature Pulse Rate 88 89 90 Pulse Rate [ From Monitor] Respiratory 19 19 20 Rate Blood Pressure 121/62 130/68 130/68 O2 Sat by Pulse 98 98 Oximetry 11/15/20 11/15/20 11/15/20 06:12 06:20 06:30 Temperature Pulse Rate 88 88 120 H Pulse Rate [ From Monitor] Respiratory 21 21 Rate Blood Pressure 130/65 130/68 130/68 O2 Sat by Pulse 98 98 98 Oximetry 11/15/20 11/15/20 11/15/20 06:40 06:50 07:00 Temperature Pulse Rate 117 H 122 H 120 H Pulse Rate [ From Monitor] Respiratory 20 21 20 Rate Blood Pressure 130/68 130/68 143/82 O2 Sat by Pulse 98 98 97 Oximetry 11/15/20 11/15/20 11/15/20 07:10 07:20 07:30 Temperature Pulse Rate 118 H 97 H 98 H Pulse Rate [ From Monitor] Respiratory 19 20 22 Rate Blood Pressure 143/82 143/82 143/82 O2 Sat by Pulse 98 98 98 Oximetry 11/15/20 11/15/20 11/15/20 07:40 07:50 08:00 Temperature 99.9 F H Pulse Rate 82 84 89 Pulse Rate [ From Monitor] Respiratory 17 19 14 Rate Blood Pressure 143/82 143/82 133/66 O2 Sat by Pulse 96 99 100 Oximetry 11/15/20 11/15/20 11/15/20 08:10 08:20 08:30 Temperature Pulse Rate 87 82 82 Pulse Rate [ From Monitor] Respiratory 19 18 16 Rate Blood Pressure 133/66 133/66 133/66 O2 Sat by Pulse 98 98 98 Oximetry 11/15/20 11/15/20 11/15/20 08:40 08:50 09:00 Temperature Pulse Rate 84 89 85 Pulse Rate [ 91 H From Monitor] Respiratory 16 20 18 Rate Blood Pressure 133/66 133/66 139/66 O2 Sat by Pulse 98 98 98 Oximetry 11/15/20 09:10 Temperature Pulse Rate 94 H Pulse Rate [ From Monitor] Respiratory 23 Rate Blood Pressure 139/66 O2 Sat by Pulse 99 Oximetry - Labs CBC & Chem 7: 11/15/20 04:19 11/15/20 04:19 Labs: Abnormal lab results 11/14/20 11/14/20 11/14/20 Range/Units 14:00 14:06 14:06 RBC 5.27 H (3.65-5.03) M/mm3 Hgb 14.7 H (10.1-14.3) gm/dl Hct 43.7 H (30.3-42.9) % MCH (28-32) pg RDW 15.8 H (13.2-15.2) % Lymph % (Auto) 6.2 L (13.4-35.0) % Lymph # (Auto) 0.7 L (1.2-5.4) K/mm3 Seg Neutrophils % 89.2 H (40.0-70.0) % Seg Neutrophils # 9.5 H (1.8-7.7) K/mm3 Thrombin Time 19.8 H (15.1-19.6) Sec. ABG pH (7.320-7.450) POC ABG pCO2 (32.0-48.0) mmHg POC ABG pO2 (83-108) mmHg ABG Oxyhemoglobin (94-98) ABG Glucose (65-95) mg/dL Sodium (137-145) mmol/L Chloride (98-107) mmol/L Glucose (65-100) mg/dL POC Glucose 150 H (70-105) mg/dL Calcium (8.4-10.2) mg/dL Total Creatine Kinase (30-135) units/L Total Protein (6.3-8.2) g/dL Albumin (3.9-5) g/dL Arterial Blood Glucose (65-95) mg/dL Arterial Blood Ionized Calcium (4.6-5.3) mg/dL 11/14/20 11/14/20 11/15/20 Range/Units 14:06 14:42 04:07 RBC (3.65-5.03) M/mm3 Hgb (10.1-14.3) gm/dl Hct (30.3-42.9) % MCH (28-32) pg RDW (13.2-15.2) % Lymph % (Auto) (13.4-35.0) % Lymph # (Auto) (1.2-5.4) K/mm3 Seg Neutrophils % (40.0-70.0) % Seg Neutrophils # (1.8-7.7) K/mm3 Thrombin Time (15.1-19.6) Sec. ABG pH (7.320-7.450) POC ABG pCO2 (32.0-48.0) mmHg POC ABG pO2 71.3 L (83-108) mmHg ABG Oxyhemoglobin 92.6 L (94-98) ABG Glucose 118 H (65-95) mg/dL Sodium 129 L (137-145) mmol/L Chloride 93 L (98-107) mmol/L Glucose 155 H (65-100) mg/dL POC Glucose 50 L (70-105) mg/dL Calcium (8.4-10.2) mg/dL Total Creatine Kinase 185 H (30-135) units/L Total Protein 10.4 H (6.3-8.2) g/dL Albumin 3.7 L (3.9-5) g/dL Arterial Blood Glucose 118 H (65-95) mg/dL Arterial Blood Ionized Calcium 4.4 L (4.6-5.3) mg/dL 11/15/20 11/15/20 11/15/20 Range/Units 04:19 04:19 05:28 RBC (3.65-5.03) M/mm3 Hgb (10.1-14.3) gm/dl Hct (30.3-42.9) % MCH 26 L (28-32) pg RDW 15.9 H (13.2-15.2) % Lymph % (Auto) 8.1 L (13.4-35.0) % Lymph # (Auto) 0.8 L (1.2-5.4) K/mm3 Seg Neutrophils % 84.8 H (40.0-70.0) % Seg Neutrophils # 8.3 H (1.8-7.7) K/mm3 Thrombin Time (15.1-19.6) Sec. ABG pH (7.320-7.450) POC ABG pCO2 (32.0-48.0) mmHg POC ABG pO2 (83-108) mmHg ABG Oxyhemoglobin (94-98) ABG Glucose (65-95) mg/dL Sodium (137-145) mmol/L Chloride (98-107) mmol/L Glucose 53 L (65-100) mg/dL POC Glucose 156 H (70-105) mg/dL Calcium 8.1 L (8.4-10.2) mg/dL Total Creatine Kinase (30-135) units/L Total Protein (6.3-8.2) g/dL Albumin 2.7 L (3.9-5) g/dL Arterial Blood Glucose (65-95) mg/dL Arterial Blood Ionized Calcium (4.6-5.3) mg/dL 11/15/20 Range/Units 06:20 RBC (3.65-5.03) M/mm3 Hgb (10.1-14.3) gm/dl Hct (30.3-42.9) % MCH (28-32) pg RDW (13.2-15.2) % Lymph % (Auto) (13.4-35.0) % Lymph # (Auto) (1.2-5.4) K/mm3 Seg Neutrophils % (40.0-70.0) % Seg Neutrophils # (1.8-7.7) K/mm3 Thrombin Time (15.1-19.6) Sec. ABG pH 7.486 H (7.320-7.450) POC ABG pCO2 31.5 L (32.0-48.0) mmHg POC ABG pO2 (83-108) mmHg ABG Oxyhemoglobin (94-98) ABG Glucose 58 L (65-95) mg/dL Sodium (137-145) mmol/L Chloride (98-107) mmol/L Glucose (65-100) mg/dL POC Glucose (70-105) mg/dL Calcium (8.4-10.2) mg/dL Total Creatine Kinase (30-135) units/L Total Protein (6.3-8.2) g/dL Albumin (3.9-5) g/dL Arterial Blood Glucose 58 L (65-95) mg/dL Arterial Blood Ionized Calcium (4.6-5.3) mg/dL HEART Score - HEART Score Troponin: Troponin T 0.010 ng/mL (0.00-0.029) 11/14/20 14:06
--- NOTE | 2020-11-15 14:58 | Progress Note ---
Assessment and Plan Acute hypoxemic respiratory failure, on mechanical ventilatory support. Acute encephalopathy, possibly on chronic. Acute cerebrovascular accident, subacute. Metastatic pulmonary nodules, possibly lung cancer. Hyponatremia. Elevated serum creatine kinase (Daughter called and stated that her mother would want to be a DNR after she discussed at length with the rest of the family also) - COVID PCR positive - get inflammatory markers and trend - will get ID input re: Remdesivir ./ other adjuctive COVID specific therapies - continue to wean supplemental oxygen for target O2 sat's > 92% acutely - VAP bundle addressed - continue lung protective strategies - continue bronchodilators with pulmonary hygiene per RT - wean per pulmonary driven protocols otherwise - continue Daily SAT and SBT assessment as tolerated - continue accuchecks with glycemic control per SSI (While critically ill target blood glucose of 140-180 mg/dL; avoid hypoglycemia) - sedation prn for target RASS 0 to -1 - avoid nephrotoxins, renally dose all medications - continue to avoid benzodiazepine's, reduce the possibility of delirium - AB's per ID rec's - prn analgesia per CPOT score - Maintenance of sleep-wake cycle, avoid delirium - enteral nutritional support at goal rate as tolerated - G.I. & VTE prophylaxis - PT/OT/ROM exercises - continue mobility protocols for pressure ulcer prophylaxis - Monitor hemodynamics closely - continue other care per attending / other consultants - discharge planning ongoing concurrently COVID SPECIFIC INTERVENTIONS - Remdesivir as per ID/Pulmonary developed protocols - systemic steroids for severe COVID-19 infection empirically - follow repeat COVID tests results - zinc and vitamin C supplementation - Monitor inflammatory markers per facility protocol - ferritin, Ddimer, CRP - therapeutic anticoagulation per system Protocol based on d-dimer and clinical considerations - Continue contact and airborne isolation .... Re-evaluate in am & prn CONDITION: CRITICAL PROGNOSIS: GUARDED CODE STATUS: FULL CODE The high probability of a clinically significant, sudden or life-threatening deterioration of the [respiratory, cardiovascular & neurologic] system(s) required my full and direct attention, intervention and personal management. The aggregate critical care time was [34] minutes without overlap. Time includes spent on; [x] Data Review and interpretation [x] Patient assessment and monitoring of vital signs [x] Documentation [x] Medication orders and management Subjective Date of service: 11/15/20 Interval history: Patient is seen today for: Seen and examined at bedside; 24hour events reviewed; nursing and respiratory care staff consulted; no adverse overnight events reported to me; resting peacefully in bed; remains on MVS; a little more responsive; no emesis or overt aspiration Objective Vital Signs - 12hr 11/15/20 11/15/20 11/15/20 03:00 03:10 03:20 Temperature Pulse Rate 90 85 94 H Pulse Rate [ From Monitor] Respiratory 20 15 20 Rate Blood Pressure 123/69 123/69 123/69 O2 Sat by Pulse 97 97 98 Oximetry 11/15/20 11/15/20 11/15/20 03:30 03:40 03:50 Temperature Pulse Rate 93 H 91 H 87 Pulse Rate [ From Monitor] Respiratory 21 18 20 Rate Blood Pressure 123/69 123/69 123/69 O2 Sat by Pulse 98 98 98 Oximetry 11/15/20 11/15/20 11/15/20 04:00 04:10 04:20 Temperature 99.1 F Pulse Rate 82 90 88 Pulse Rate [ 82 From Monitor] Respiratory 16 18 19 Rate Blood Pressure 123/67 123/67 123/67 O2 Sat by Pulse 97 98 97 Oximetry 11/15/20 11/15/20 11/15/20 04:30 04:40 04:50 Temperature Pulse Rate 87 87 80 Pulse Rate [ From Monitor] Respiratory 17 20 15 Rate Blood Pressure 123/67 123/67 123/67 O2 Sat by Pulse 97 99 97 Oximetry 11/15/20 11/15/20 11/15/20 05:00 05:10 05:20 Temperature Pulse Rate 83 84 83 Pulse Rate [ From Monitor] Respiratory 19 18 19 Rate Blood Pressure 121/62 121/62 121/62 O2 Sat by Pulse 97 98 99 Oximetry 11/15/20 11/15/20 11/15/20 05:30 05:40 05:50 Temperature Pulse Rate 87 85 88 Pulse Rate [ From Monitor] Respiratory 18 18 19 Rate Blood Pressure 121/62 121/62 121/62 O2 Sat by Pulse 98 98 98 Oximetry 11/15/20 11/15/20 11/15/20 06:00 06:10 06:12 Temperature Pulse Rate 89 90 88 Pulse Rate [ From Monitor] Respiratory 19 20 Rate Blood Pressure 130/68 130/68 130/65 O2 Sat by Pulse 98 98 Oximetry 11/15/20 11/15/20 11/15/20 06:20 06:30 06:40 Temperature Pulse Rate 88 120 H 117 H Pulse Rate [ From Monitor] Respiratory 21 21 20 Rate Blood Pressure 130/68 130/68 130/68 O2 Sat by Pulse 98 98 98 Oximetry 11/15/20 11/15/20 11/15/20 06:50 07:00 07:10 Temperature Pulse Rate 122 H 120 H 118 H Pulse Rate [ From Monitor] Respiratory 21 20 19 Rate Blood Pressure 130/68 143/82 143/82 O2 Sat by Pulse 98 97 98 Oximetry 11/15/20 11/15/20 11/15/20 07:20 07:30 07:40 Temperature Pulse Rate 97 H 98 H 82 Pulse Rate [ From Monitor] Respiratory 20 22 17 Rate Blood Pressure 143/82 143/82 143/82 O2 Sat by Pulse 98 98 96 Oximetry 11/15/20 11/15/20 11/15/20 07:50 08:00 08:10 Temperature 99.9 F H Pulse Rate 84 89 87 Pulse Rate [ From Monitor] Respiratory 19 14 19 Rate Blood Pressure 143/82 133/66 133/66 O2 Sat by Pulse 99 100 98 Oximetry 11/15/20 11/15/20 11/15/20 08:20 08:30 08:40 Temperature Pulse Rate 82 82 84 Pulse Rate [ From Monitor] Respiratory 18 16 16 Rate Blood Pressure 133/66 133/66 133/66 O2 Sat by Pulse 98 98 98 Oximetry 11/15/20 11/15/20 11/15/20 08:50 09:00 09:10 Temperature Pulse Rate 89 85 94 H Pulse Rate [ 91 H From Monitor] Respiratory 20 18 23 Rate Blood Pressure 133/66 139/66 139/66 O2 Sat by Pulse 98 98 99 Oximetry 11/15/20 11/15/20 11/15/20 09:20 09:30 09:40 Temperature Pulse Rate 90 85 91 H Pulse Rate [ From Monitor] Respiratory 21 20 18 Rate Blood Pressure 139/66 139/66 139/66 O2 Sat by Pulse 99 99 99 Oximetry 11/15/20 11/15/20 11/15/20 09:50 10:00 10:10 Temperature Pulse Rate 80 91 H 87 Pulse Rate [ From Monitor] Respiratory 16 19 18 Rate Blood Pressure 139/66 149/74 149/74 O2 Sat by Pulse 95 98 98 Oximetry 11/15/20 11/15/20 11/15/20 10:20 10:30 10:40 Temperature Pulse Rate 92 H 89 80 Pulse Rate [ From Monitor] Respiratory 19 20 16 Rate Blood Pressure 149/74 149/74 149/74 O2 Sat by Pulse 98 98 97 Oximetry 11/15/20 11/15/20 11/15/20 10:50 11:00 11:10 Temperature Pulse Rate 80 79 79 Pulse Rate [ From Monitor] Respiratory 17 16 16 Rate Blood Pressure 149/74 123/55 123/55 O2 Sat by Pulse 99 96 98 Oximetry 11/15/20 11/15/20 11/15/20 11:20 11:30 11:40 Temperature Pulse Rate 80 87 80 Pulse Rate [ From Monitor] Respiratory 15 19 18 Rate Blood Pressure 123/55 123/55 123/55 O2 Sat by Pulse 96 97 98 Oximetry 11/15/20 11/15/20 11/15/20 11:50 12:00 12:05 Temperature 100 F H Pulse Rate 81 82 82 Pulse Rate [ From Monitor] Respiratory 16 19 Rate Blood Pressure 123/55 130/58 123/55 O2 Sat by Pulse 98 98 98 Oximetry 11/15/20 11/15/20 11/15/20 12:10 12:20 12:30 Temperature Pulse Rate 83 80 84 Pulse Rate [ From Monitor] Respiratory 17 17 17 Rate Blood Pressure 130/58 130/58 130/58 O2 Sat by Pulse 98 97 99 Oximetry 11/15/20 11/15/20 11/15/20 12:40 12:50 13:00 Temperature Pulse Rate 87 81 86 Pulse Rate [ 84 From Monitor] Respiratory 17 16 20 Rate Blood Pressure 130/58 130/58 135/63 O2 Sat by Pulse 99 98 97 Oximetry 11/15/20 11/15/20 11/15/20 13:10 13:20 13:30 Temperature Pulse Rate 82 82 83 Pulse Rate [ From Monitor] Respiratory 16 17 18 Rate Blood Pressure 135/63 135/63 130/58 O2 Sat by Pulse 99 96 95 Oximetry 11/15/20 11/15/20 11/15/20 13:40 13:50 14:00 Temperature Pulse Rate 88 91 H 85 Pulse Rate [ From Monitor] Respiratory 20 17 18 Rate Blood Pressure 130/58 130/58 135/63 O2 Sat by Pulse 98 99 98 Oximetry 11/15/20 11/15/20 11/15/20 14:10 14:20 14:30 Temperature Pulse Rate 93 H 85 81 Pulse Rate [ From Monitor] Respiratory 19 16 18 Rate Blood Pressure 136/61 136/61 136/61 O2 Sat by Pulse 99 98 98 Oximetry 11/15/20 14:40 Temperature Pulse Rate 86 Pulse Rate [ From Monitor] Respiratory 18 Rate Blood Pressure 136/61 O2 Sat by Pulse 96 Oximetry Constitutional: other (elderly female with mildly increased respiratory effort at rest on MVS) Eyes: non-icteric ENT: oropharynx moist, other (ETT 23 cm MICHAEL) Neck: supple, no JVD Effort: mildly labored Ascultation: Bilateral: diminished breath sounds, rhonchi Percussion: Bilateral: not dull Cardiovascular: regular rate and rhythm Gastrointestinal: normoactive bowel sounds, soft, non-tender, non-distended Integumentary: normal Extremities: no cyanosis, no edema, pulses normal, no ischemia or petechiae Neurologic: pupils equal and round, unable to assess Psychiatric: other (unable to assess re: AMS) CBC and BMP: 11/15/20 04:19 11/15/20 04:19 ABG, PT/INR, D-dimer: ABG ABG pH 7.486 (7.320-7.450) H 11/15/20 06:20 POC ABG pCO2 31.5 mmHg (32.0-48.0) L 11/15/20 06:20 POC ABG pO2 90.9 mmHg (83-108) 11/15/20 06:20 POC ABG HCO3 23.3 11/15/20 06:20 ABG O2 Saturation 97.7 (0-100) 11/15/20 06:20 PT/INR, D-dimer PT 12.8 Sec. (12.2-14.9) 11/14/20 14:06 INR 0.98 (0.87-1.13) 11/14/20 14:06 Abnormal lab findings: Abnormal Labs 11/14/20 11/14/20 11/14/20 14:00 14:06 14:06 RBC 5.27 H Hgb 14.7 H Hct 43.7 H MCH RDW 15.8 H Lymph % (Auto) 6.2 L Lymph # (Auto) 0.7 L Seg Neutrophils % 89.2 H Seg Neutrophils # 9.5 H Thrombin Time 19.8 H ABG pH POC ABG pCO2 POC ABG pO2 ABG Oxyhemoglobin ABG Glucose Sodium Chloride Glucose POC Glucose 150 H Calcium Total Creatine Kinase Total Protein Albumin Arterial Blood Glucose Arterial Blood Ionized Calcium Coronavirus (PCR) 11/14/20 11/14/20 11/15/20 14:06 14:42 04:07 RBC Hgb Hct MCH RDW Lymph % (Auto) Lymph # (Auto) Seg Neutrophils % Seg Neutrophils # Thrombin Time ABG pH POC ABG pCO2 POC ABG pO2 71.3 L ABG Oxyhemoglobin 92.6 L ABG Glucose 118 H Sodium 129 L Chloride 93 L Glucose 155 H POC Glucose 50 L Calcium Total Creatine Kinase 185 H Total Protein 10.4 H Albumin 3.7 L Arterial Blood Glucose 118 H Arterial Blood Ionized Calcium 4.4 L Coronavirus (PCR) 11/15/20 11/15/20 11/15/20 04:19 04:19 05:28 RBC Hgb Hct MCH 26 L RDW 15.9 H Lymph % (Auto) 8.1 L Lymph # (Auto) 0.8 L Seg Neutrophils % 84.8 H Seg Neutrophils # 8.3 H Thrombin Time ABG pH POC ABG pCO2 POC ABG pO2 ABG Oxyhemoglobin ABG Glucose Sodium Chloride Glucose 53 L POC Glucose 156 H Calcium 8.1 L Total Creatine Kinase Total Protein Albumin 2.7 L Arterial Blood Glucose Arterial Blood Ionized Calcium Coronavirus (PCR) 11/15/20 11/15/20 11/15/20 06:20 11:43 Unknown RBC Hgb Hct MCH RDW Lymph % (Auto) Lymph # (Auto) Seg Neutrophils % Seg Neutrophils # Thrombin Time ABG pH 7.486 H POC ABG pCO2 31.5 L POC ABG pO2 ABG Oxyhemoglobin ABG Glucose 58 L Sodium Chloride Glucose POC Glucose 180 H Calcium Total Creatine Kinase Total Protein Albumin Arterial Blood Glucose 58 L Arterial Blood Ionized Calcium Coronavirus (PCR) Positive A Chest x-ray: image reviewed (ETT in better position; multiple metastatic nodules) Allied health notes reviewed: nursing
--- NOTE | 2020-11-15 15:50 | Event Note ---
Date: 11/15/20 Spoke with patient's daughter and she is requesting DNR Discussed with Dr Harkins Will consult hospice as per daughter's wish
[2020-11-15] MEDS ORDERED: INSULIN REGULAR, HUMAN 100 UNITS/1 ML SUB-Q SCH (16:00)
[2020-11-15 16:12] LABS: C-Reactive Protein 4.8 mg/dL (0.00-1.30)
--- NOTE | 2020-11-15 20:29 | Consultation ---
PULMONARY CRITICAL CARE CONSULT NOTE CONSULTING PHYSICIAN: Dr. Tin Arteaga. REASON FOR CONSULTATION: Acute hypoxemic respiratory failure, on mechanical ventilatory support, lung cancer. CHIEF COMPLAINT AND HISTORY OF PRESENT ILLNESS: The patient is a 70-year-old -Chinese female with past medical history significant amongst other things for a diagnosis of what is described as metastatic lung cancer, who presented to the Emergency Department with altered mental status, right-sided facial droop and left-sided gaze preference. According to EMS, the family said they last saw her well the night before. She had not come out of her room. Family went to check on her and found her unresponsive. Over there, they found her with a critically low blood glucose level. She was given an amp of D50. Blood sugar went up to 250, but the patient did not improve. She was brought into the Emergency Room. In the Emergency Room, she was evaluated by the ER physician and ultimately she required intubation for mechanical ventilatory support. She was seen by the tele neurologist and a CT of the brain showed a subacute infarct, but no acute changes. Post-intubation, we are asked to assist with management. When I stopped by to see her, she was resting peacefully in bed. She was on the mechanical ventilator without significant patient ventilator dyssynchrony with regard to tobacco use/abuse history, family denied any such history. This really is as much of the history of presentation as I have. PAST MEDICAL HISTORY: Again, according to the records, history of cerebrovascular accident, history of vascular dementia, history of metastatic lung cancer. PAST SURGICAL HISTORY: Denied. MEDICATIONS: She was on at the time I stopped by to see were reviewed, pertinent medications include the following: Tylenol 650 mg p.o. q. 6 hours p.r.n. mild pain or fever, all p.o. meds via the feeding tube. Albuterol 2.5 mg nebulized q.3 hours p.r.n. shortness of breath. Propofol drip was going at 10 mcg per kilogram per minute. IV NS had been going at 125 mL per hour. ALLERGIES: No known drug allergies. DIET: Thin lady, acute weight loss or gain history is unknown. FAMILY AND SOCIAL HISTORY: Apparently lives in the community with family. Family had denied alcohol, tobacco, or illicit drug use or abuse. She is . She does have a history of hypertension. REVIEW OF SYSTEMS: Unobtainable secondary to the patient's medical and mental condition. Since she has been in the Emergency Room, no gross hematochezia or melena, no gross hematuria, no hematemesis, no bloody tracheal secretions, no witnessed seizures have been reported. Review of systems otherwise unobtainable or as in body of history above. PHYSICAL EXAMINATION: VITAL SIGNS: At presentation in the Emergency Room, review of vital signs shows that she was afebrile, temperature 98.3, pulse 87, respiratory rate was 10, blood pressure 154/98, O2 sats were 99%, inspired oxygen concentration at that time was not recorded. She has had a T-max of 100.5 degrees Fahrenheit since admission. When I stopped by to see her, O2 sats were 98% and that was on mechanical ventilator, assist control mode of ventilation, AC PRVC, tidal volume 450, rate of 14, PEEP of 6, and 35% FiO2. GENERAL: She is an elderly looking female, normocephalic, atraumatic, on the mechanical ventilator without significant patient ventilator dyssynchrony. HEAD, EYES, EARS, NOSE AND THROAT: Anicteric. No conjunctival erythema. Oropharynx was moist. She had an ET tube taped around 23 cm at the lips. No gross jugular venous distention, no thyromegaly. NECK: Grossly, there were no palpable lymph nodes in the supraclavicular or submandibular lymph node chains. LUNGS: Auscultation of both lung landon significant for diminished bilateral breath sounds, scant basilar rhonchi, no wheezing. HEART: Heart sounds 1 and 2 are heard. Irregular rate and rhythm at the time of my evaluation without overt rubs or murmurs. ABDOMEN: Soft, full, bowel sounds are positive, nontender, no palpable hepatosplenomegaly. EXTREMITIES: Without overt digital clubbing, no cyanosis, no pedal edema. Pedal pulses were 2+ bilaterally. NEUROLOGIC: Pupils are equal, round, about 3 mm, reactive to light. Extraocular muscle movements could not be assessed. She was sedated, not following prompts. She will attempt to open her eyes to name calling at best. SKIN: Normal turgor in the areas examined without overt cellulitis or rash. Please see the wound care nurse's notes for full description of her skin. PSYCHIATRIC: Mood and affect could not be assessed. She was sedated. LABORATORY DATA: From my review are as follows: Admission white cell count 10,700, hemoglobin 14.7, hematocrit 43.7, platelet count 294. Manual differential not done. INR within normal limits. Arterial blood gas at presentation showed a pH of 7.37, pCO2 of 46, pO2 of 71 that was on 40% FiO2. Serum sodium 129, potassium 5.0, chloride 93, bicarbonate 23, BUN 9, creatinine 0.6, glucose 155. Liver function test within normal limits. Ammonia within normal limits. Troponin within normal limits. Urinalysis was done, it was negative for nitrites and leukocyte esterase. Urine drug screen was presumptive negative. Coronavirus PCR testing has been done, but is pending. Tracheal aspirate is pending. No blood cultures. A chest x-ray was done, it shows an endotracheal tube tip really running a little bit low, but about 2-3 cm above the viral. Bilateral/multiple pulmonary nodules are evident. No real consolidative changes that I can see. There seems to be a lot of right perihilar nodules overt metastatic disease, likely. CT of the head was done. CTA, no indication of hemodynamically significant stenosis of the carotid bifurcations or elsewhere, but they could see with metastatic disease to the superior mediastinum. CT angio of the head again no large vessel occlusion. ASSESSMENT: 1. Acute hypoxemic respiratory failure, on mechanical ventilatory support. 2. Acute encephalopathy, possibly on chronic. 3. Acute cerebrovascular accident, subacute. 4. Metastatic pulmonary nodules, possibly lung cancer. 5. Hyponatremia. 6. Elevated serum creatine kinase. PLAN: Without knowing the overall picture and especially if this is lung cancer, the prognosis is really poor. I will try and reach out to family, a little bit later to come and guide therapy going forward. Nonetheless, she does not mean that she cannot be liberated from mechanical ventilator. Mental status will be the issue most likely. Ventilator-associated pneumonia bundle has been introduced. Oxygen will be weaned to keep sats greater than or equal to about 92% acutely. She is a person under investigation for COVID-19 infection and she will be left in airborne and contact isolation in the short time. Bronchodilators, routine pulmonary hygiene will be per the respiratory therapy. I will get some further testing to help make decisions in terms of the need for empiric antibiotic therapy. Infectious Disease consultation will be deferred to the attending. Hematology consultation will also be of benefit. Enteral nutrition will be the feeding modality of choice. Electrolytes are monitored. Inputs and outputs are monitored and addressed as necessary. She is going to be on GI prophylaxis as well as DVT prophylaxis. Flu and pneumonia vaccination will be addressed per protocol. It is unclear if she is a candidate for full anticoagulation. I will evaluate her for venous thromboembolic disorders in light of her being found down and extensive likely metastatic disease. She certainly is hypercoagulable. Flu and pneumonia vaccination will be addressed per protocol. Thank you very much for the consult. We will follow along and make further recommendations as picture progresses/becomes clearer. She is critically ill on life-sustaining interventions including mechanical ventilatory support at very high risk of from cardiopulmonary system decompensation. At this time, I spent about 35-40 minutes of critical care time without overlap and excluding any procedural time that may be necessary. JOB# [id number] THOMPSON/MERYL COLLAZO
[2020-11-15] MEDS: ENOXAPARIN 40 MG/0.4 ML INJ SUB-Q SCH (21:21)
[2020-11-15] MEDS: INSULIN REGULAR, HUMAN 100 UNITS/1 ML SUB-Q SCH (23:58)
[2020-11-16] MEDS: INSULIN REGULAR, HUMAN 100 UNITS/1 ML SUB-Q SCH ×3 (06:27→17:23)
[2020-11-16] MEDS: ACETAMINOPHEN 325 MG/10.15 ML ORAL LIQD UNIT DOSE FEEDTUBE PRN ×2 (08:23→17:22)
[2020-11-16] MEDS: FAMOTIDINE 20 MG/2 ML INJ IV SCH ×2 (09:23→22:11)
--- NOTE | 2020-11-16 10:03 | Event Note ---
Date: 11/16/20 ID consulted. Discussed with Dr. Bejarano, plan is for hospice. ID will sign off. Please call with questions or any changes.
[2020-11-16] MEDS ORDERED: LIPASE 10,500/PROTEASE 25,000/AMYLASE 43,750 (UNITS) DR CAP FEEDTUBE PRN (11:10)
[2020-11-16] MEDS ORDERED: SIMPLE SYRUP 15 ML FEEDTUBE PRN ×2 (11:10)
[2020-11-16] MEDS ORDERED: SODIUM BICARBONATE 325 MG TAB FEEDTUBE PRN (11:10)
--- NOTE | 2020-11-16 11:16 | Progress Note ---
Assessment and Plan This is a 70-year-old female who is currently visiting her family in [facility] with CVA complicated by Aphasia, Vascular Dementia, Cerebral Atherosclerosis, Metastatic Lung Neoplasm brought to the ER by EMS after she was found unresponsive by family in the morning. Acute hypoxemic respiratory failure COVID-19 infection Metastatic lung cancer Possible acute CVA Metabolic encephalopathy Hyponatremia hypoglycemia Hypoglycemia History of CVA with aphasia Vascular dementia Severe protein calorie malnutrition Febrile illness -Continue to monitor in the critical care with frequent neuro checkups -Patient currently intubated, critical care following -Discussed with patient daughter and requesting for DNR and hospice service -We will continue current management and plan, consult shoe caser for hospice placement -Continue D5 10 for now to prevent hypoglycemia, -Start on Unasyn prophylactically for possible aspiration pneumonitis -DVT and GI prophylaxis -Wait for hospice placement -No specific treatment for COVID-19 as patient is pending hospice The high probability of a clinically significant, sudden or life threatening deterioration of the [multi] system(s) required my full and direct attention, intervention and personal management. The aggregate critical care time was [35.] minutes. This time is in addition to time spent performing reported procedures but includes the following: [x] Data Review and interpretation [x] Patient assessment and monitoring of vital signs [x] Documentation [x] Medication orders and management Subjective Date of service: 11/16/20 Interval history: Patient seen and examined. Medical records and medication list reviewed. Patient remains intubated Patient requested for DNR and hospice service by daughter Pending hospice placement Objective - Exam Narrative Exam: General appearance: Present: severe distress, cachectic - EENT Eyes: Present: miosis ENT: hearing decreased - Neck Neck: Present: supple, normal ROM - Respiratory Respiratory effort: labored Respiratory: bilateral: diminished, rhonchi - Cardiovascular Heart Sounds: Present: S1 & S2. Absent: rub, click - Extremities Extremities: pulses symmetrical, No edema Peripheral Pulses: within normal limits - Abdominal General gastrointestinal: Present: soft, non-tender, non-distended, normal bowel sounds Female genitourinary: Present: normal - Musculoskeletal Musculoskeletal: generalized weakness - Psychiatric Psychiatric: no appropriate mood/affect, no intact judgment & insight, no memory intact - Neurologic Neurologic: no CNII-XII intact, focal deficits, no moves all extremities, no gait normal - Constitutional Vitals: Vital Signs - 12hr 0411/15/20 11/15/20 23:30 23:36 23:53 Temperature 100.7 F H Pulse Rate 121 H 121 H Pulse Rate [ From Monitor] Respiratory 18 Rate Blood Pressure 130/59 129/75 O2 Sat by Pulse 99 98 Oximetry 11/16/20 11/16/20 11/16/20 00:00 00:30 01:00 Temperature Pulse Rate 122 H 123 H 91 H Pulse Rate [ From Monitor] Respiratory 18 18 19 Rate Blood Pressure 130/72 130/72 124/63 O2 Sat by Pulse 98 99 Oximetry 11/16/20 11/16/20 11/16/20 01:30 02:00 02:30 Temperature Pulse Rate 95 H 93 H 94 H Pulse Rate [ From Monitor] Respiratory 20 19 16 Rate Blood Pressure 124/63 116/62 116/62 O2 Sat by Pulse 97 99 Oximetry 11/16/20 11/16/20 11/16/20 03:00 03:30 03:40 Temperature Pulse Rate 96 H 95 H 95 H Pulse Rate [ From Monitor] Respiratory 20 20 Rate Blood Pressure 119/65 119/65 119/65 O2 Sat by Pulse 97 98 98 Oximetry 11/16/20 11/16/20 11/16/20 04:00 04:30 05:00 Temperature 100.4 F H Pulse Rate 95 H 100 H 97 H Pulse Rate [ From Monitor] Respiratory 19 22 20 Rate Blood Pressure 118/63 118/63 120/62 O2 Sat by Pulse 97 98 98 Oximetry 11/16/20 11/16/20 11/16/20 05:30 06:00 06:30 Temperature Pulse Rate 98 H 94 H 95 H Pulse Rate [ From Monitor] Respiratory 21 19 20 Rate Blood Pressure 120/62 118/63 118/63 O2 Sat by Pulse 99 99 Oximetry 11/16/20 11/16/20 11/16/20 07:00 07:30 07:48 Temperature 102.3 F H Pulse Rate 97 H 98 H Pulse Rate [ From Monitor] Respiratory 18 20 Rate Blood Pressure 124/63 124/63 O2 Sat by Pulse 98 98 Oximetry 11/16/20 11/16/20 11/16/20 08:00 08:11 08:30 Temperature Pulse Rate 104 H 102 H 105 H Pulse Rate [ 97 H From Monitor] Respiratory 17 22 Rate Blood Pressure 115/64 115/64 115/64 O2 Sat by Pulse 96 97 98 Oximetry 11/16/20 11/16/20 11/16/20 09:00 09:30 10:00 Temperature Pulse Rate 104 H 99 H 96 H Pulse Rate [ From Monitor] Respiratory 21 19 19 Rate Blood Pressure 128/67 128/67 113/64 O2 Sat by Pulse 97 97 98 Oximetry 11/16/20 11/16/20 10:30 11:00 Temperature Pulse Rate 94 H 90 Pulse Rate [ From Monitor] Respiratory 19 15 Rate Blood Pressure 113/64 101/60 O2 Sat by Pulse 98 97 Oximetry - Labs CBC & Chem 7: 11/15/20 04:19 11/15/20 04:19 Labs: Abnormal lab results 11/15/20 11/15/20 11/15/20 Range/Units 11:43 15:39 17:01 ABG pH (7.320-7.450) ABG Sodium (136.0-145.0) mmol/L ABG Glucose (65-95) mg/dL POC Glucose 180 H 227 H (70-105) mg/dL Phosphorus 1.90 L (2.5-4.5) mg/dL C-Reactive Protein 4.80 H (0.00-1.30) mg/dL Arterial Blood Glucose (65-95) mg/dL Coronavirus (PCR) (Negative) 11/15/20 11/15/20 11/16/20 Range/Units 23:24 Unknown 03:58 ABG pH 7.525 H (7.320-7.450) ABG Sodium 132.4 L (136.0-145.0) mmol/L ABG Glucose 204 H (65-95) mg/dL POC Glucose 256 H (70-105) mg/dL Phosphorus (2.5-4.5) mg/dL C-Reactive Protein (0.00-1.30) mg/dL Arterial Blood Glucose 204 H (65-95) mg/dL Coronavirus (PCR) Positive A (Negative) 11/16/20 Range/Units 05:13 ABG pH (7.320-7.450) ABG Sodium (136.0-145.0) mmol/L ABG Glucose (65-95) mg/dL POC Glucose 190 H (70-105) mg/dL Phosphorus (2.5-4.5) mg/dL C-Reactive Protein (0.00-1.30) mg/dL Arterial Blood Glucose (65-95) mg/dL Coronavirus (PCR) (Negative) HEART Score - HEART Score Troponin: Troponin T 0.010 ng/mL (0.00-0.029) 11/14/20 14:06
--- NOTE | 2020-11-16 13:03 | Progress Note ---
Assessment and Plan Acute hypoxemic respiratory failure, on mechanical ventilatory support. Acute encephalopathy, possibly on chronic. Acute cerebrovascular accident, subacute. Metastatic pulmonary nodules, possibly lung cancer. Hyponatremia. Elevated serum creatine kinase (Daughter called and stated that her mother would want to be a DNR after she discussed at length with the rest of the family also) - tentatively for hospice care - continue care as below for now; - continue to wean supplemental oxygen for target O2 sat's > 92% acutely - VAP bundle addressed - continue lung protective strategies - continue bronchodilators with pulmonary hygiene per RT - wean per pulmonary driven protocols otherwise - continue Daily SAT and SBT assessment as tolerated - continue accuchecks with glycemic control per SSI (While critically ill target blood glucose of 140-180 mg/dL; avoid hypoglycemia) - sedation prn for target RASS 0 to -1 - avoid nephrotoxins, renally dose all medications - continue to avoid benzodiazepine's, reduce the possibility of delirium - AB's per ID rec's - prn analgesia per CPOT score - Maintenance of sleep-wake cycle, avoid delirium - enteral nutritional support at goal rate as tolerated - G.I. & VTE prophylaxis - PT/OT/ROM exercises - continue mobility protocols for pressure ulcer prophylaxis - Monitor hemodynamics closely - continue other care per attending / other consultants - discharge planning ongoing concurrently COVID SPECIFIC INTERVENTIONS - Remdesivir as per ID/Pulmonary developed protocols - systemic steroids for severe COVID-19 infection empirically - follow repeat COVID tests results - zinc and vitamin C supplementation - Monitor inflammatory markers per facility protocol - ferritin, Ddimer, CRP - therapeutic anticoagulation per system Protocol based on d-dimer and clinical considerations - Continue contact and airborne isolation .... Re-evaluate in am & prn CONDITION: CRITICAL PROGNOSIS: GUARDED CODE STATUS: FULL CODE The high probability of a clinically significant, sudden or life-threatening deterioration of the [respiratory, cardiovascular & neurologic] system(s) required my full and direct attention, intervention and personal management. The aggregate critical care time was [32] minutes without overlap. Time includes spent on; [x] Data Review and interpretation [x] Patient assessment and monitoring of vital signs [x] Documentation [x] Medication orders and management Subjective Date of service: 11/16/20 Principal diagnosis: Ac. hypoxemic resp failure; Ac. encephalopathy; Acute CVA; Metast. lung CA Interval history: Patient is seen today for: Acute hypoxemic respiratory failure; Acute encephalopathy; Acute cerebrovascular accident; Metastatic pulmonary nodules (lung cancer per daughter) Seen and examined at bedside; 24hour events reviewed; nursing and respiratory care staff consulted; no adverse overnight events reported to me; resting peacefully in bed; remains on MVS; AMS is persistent; no emesis ort overt aspiration Objective Vital Signs - 12hr 11/16/20 11/16/20 11/16/20 01:30 02:00 02:30 Temperature Pulse Rate 95 H 93 H 94 H Pulse Rate [ From Monitor] Respiratory 20 19 16 Rate Blood Pressure 124/63 116/62 116/62 O2 Sat by Pulse 97 99 Oximetry 11/16/20 11/16/20 11/16/20 03:00 03:30 03:40 Temperature Pulse Rate 96 H 95 H 95 H Pulse Rate [ From Monitor] Respiratory 20 20 Rate Blood Pressure 119/65 119/65 119/65 O2 Sat by Pulse 97 98 98 Oximetry 11/16/20 11/16/20 11/16/20 04:00 04:30 05:00 Temperature 100.4 F H Pulse Rate 95 H 100 H 97 H Pulse Rate [ From Monitor] Respiratory 19 22 20 Rate Blood Pressure 118/63 118/63 120/62 O2 Sat by Pulse 97 98 98 Oximetry 11/16/20 11/16/20 11/16/20 05:30 06:00 06:30 Temperature Pulse Rate 98 H 94 H 95 H Pulse Rate [ From Monitor] Respiratory 21 19 20 Rate Blood Pressure 120/62 118/63 118/63 O2 Sat by Pulse 99 99 Oximetry 11/16/20 11/16/20 11/16/20 07:00 07:30 07:48 Temperature 102.3 F H Pulse Rate 97 H 98 H Pulse Rate [ From Monitor] Respiratory 18 20 Rate Blood Pressure 124/63 124/63 O2 Sat by Pulse 98 98 Oximetry 11/16/20 11/16/20 11/16/20 08:00 08:11 08:30 Temperature Pulse Rate 104 H 102 H 105 H Pulse Rate [ 97 H From Monitor] Respiratory 17 22 Rate Blood Pressure 115/64 115/64 115/64 O2 Sat by Pulse 96 97 98 Oximetry 11/16/20 11/16/20 11/16/20 09:00 09:30 10:00 Temperature Pulse Rate 104 H 99 H 96 H Pulse Rate [ From Monitor] Respiratory 21 19 19 Rate Blood Pressure 128/67 128/67 113/64 O2 Sat by Pulse 97 97 98 Oximetry 11/16/20 11/16/20 11/16/20 10:30 11:00 12:28 Temperature 99.8 F H Pulse Rate 94 H 90 Pulse Rate [ From Monitor] Respiratory 19 15 Rate Blood Pressure 113/64 101/60 O2 Sat by Pulse 98 97 Oximetry 11/16/20 12:32 Temperature Pulse Rate 93 H Pulse Rate [ From Monitor] Respiratory Rate Blood Pressure 105/63 O2 Sat by Pulse 99 Oximetry Constitutional: other (elderly female with mildly increased respiratory effort at rest on MVS) Eyes: non-icteric ENT: oropharynx moist, other (ETT 23 cm MICHAEL) Neck: supple, no JVD Effort: mildly labored Ascultation: Bilateral: diminished breath sounds, rhonchi Percussion: Bilateral: not dull Cardiovascular: regular rate and rhythm Gastrointestinal: normoactive bowel sounds, soft, non-tender, non-distended Integumentary: normal Extremities: no cyanosis, no edema, pulses normal, no ischemia or petechiae Neurologic: pupils equal and round, unable to assess Psychiatric: other (unable to assess re: AMS) CBC and BMP: 11/15/20 04:19 11/15/20 04:19 ABG, PT/INR, D-dimer: ABG ABG pH 7.525 (7.320-7.450) H 11/16/20 03:58 POC ABG pCO2 34.0 mmHg (32.0-48.0) 11/16/20 03:58 POC ABG pO2 84.9 mmHg (83-108) 11/16/20 03:58 POC ABG HCO3 27.5 11/16/20 03:58 ABG O2 Saturation 97.1 (0-100) 11/16/20 03:58 PT/INR, D-dimer PT 12.8 Sec. (12.2-14.9) 11/14/20 14:06 INR 0.98 (0.87-1.13) 11/14/20 14:06 Abnormal lab findings: Abnormal Labs 11/14/20 11/14/20 11/14/20 14:00 14:06 14:06 RBC 5.27 H Hgb 14.7 H Hct 43.7 H MCH RDW 15.8 H Lymph % (Auto) 6.2 L Lymph # (Auto) 0.7 L Seg Neutrophils % 89.2 H Seg Neutrophils # 9.5 H Thrombin Time 19.8 H ABG pH POC ABG pCO2 POC ABG pO2 ABG Oxyhemoglobin ABG Sodium ABG Glucose Sodium Chloride Glucose POC Glucose 150 H Calcium Phosphorus Total Creatine Kinase C-Reactive Protein Total Protein Albumin Arterial Blood Glucose Arterial Blood Ionized Calcium Coronavirus (PCR) 11/14/20 11/14/20 11/15/20 14:06 14:42 04:07 RBC Hgb Hct MCH RDW Lymph % (Auto) Lymph # (Auto) Seg Neutrophils % Seg Neutrophils # Thrombin Time ABG pH POC ABG pCO2 POC ABG pO2 71.3 L ABG Oxyhemoglobin 92.6 L ABG Sodium ABG Glucose 118 H Sodium 129 L Chloride 93 L Glucose 155 H POC Glucose 50 L Calcium Phosphorus Total Creatine Kinase 185 H C-Reactive Protein Total Protein 10.4 H Albumin 3.7 L Arterial Blood Glucose 118 H Arterial Blood Ionized Calcium 4.4 L Coronavirus (PCR) 11/15/20 11/15/20 11/15/20 04:19 04:19 05:28 RBC Hgb Hct MCH 26 L RDW 15.9 H Lymph % (Auto) 8.1 L Lymph # (Auto) 0.8 L Seg Neutrophils % 84.8 H Seg Neutrophils # 8.3 H Thrombin Time ABG pH POC ABG pCO2 POC ABG pO2 ABG Oxyhemoglobin ABG Sodium ABG Glucose Sodium Chloride Glucose 53 L POC Glucose 156 H Calcium 8.1 L Phosphorus Total Creatine Kinase C-Reactive Protein Total Protein Albumin 2.7 L Arterial Blood Glucose Arterial Blood Ionized Calcium Coronavirus (PCR) 11/15/20 11/15/20 11/15/20 06:20 11:43 15:39 RBC Hgb Hct MCH RDW Lymph % (Auto) Lymph # (Auto) Seg Neutrophils % Seg Neutrophils # Thrombin Time ABG pH 7.486 H POC ABG pCO2 31.5 L POC ABG pO2 ABG Oxyhemoglobin ABG Sodium ABG Glucose 58 L Sodium Chloride Glucose POC Glucose 180 H Calcium Phosphorus 1.90 L Total Creatine Kinase C-Reactive Protein 4.80 H Total Protein Albumin Arterial Blood Glucose 58 L Arterial Blood Ionized Calcium Coronavirus (PCR) 11/15/20 11/15/20 11/15/20 17:01 23:24 Unknown RBC Hgb Hct MCH RDW Lymph % (Auto) Lymph # (Auto) Seg Neutrophils % Seg Neutrophils # Thrombin Time ABG pH POC ABG pCO2 POC ABG pO2 ABG Oxyhemoglobin ABG Sodium ABG Glucose Sodium Chloride Glucose POC Glucose 227 H 256 H Calcium Phosphorus Total Creatine Kinase C-Reactive Protein Total Protein Albumin Arterial Blood Glucose Arterial Blood Ionized Calcium Coronavirus (PCR) Positive A 11/16/20 11/16/20 03:58 05:13 RBC Hgb Hct MCH RDW Lymph % (Auto) Lymph # (Auto) Seg Neutrophils % Seg Neutrophils # Thrombin Time ABG pH 7.525 H POC ABG pCO2 POC ABG pO2 ABG Oxyhemoglobin ABG Sodium 132.4 L ABG Glucose 204 H Sodium Chloride Glucose POC Glucose 190 H Calcium Phosphorus Total Creatine Kinase C-Reactive Protein Total Protein Albumin Arterial Blood Glucose 204 H Arterial Blood Ionized Calcium Coronavirus (PCR) Allied health notes reviewed: nursing
[2020-11-16] MEDS: DEXTROSE 10% IN WATER 1,000 ML IV SCH (16:56)
[2020-11-16] MEDS: AMPICILLIN/SULBACTA 1.5GM/50ML 1.5 GM/50 ML BAG IV SCH (18:39)
--- NOTE | 2020-11-16 18:49 | Vascular Lab Report ---
DUPLEX DOPPLER LOWER EXTREMITY VEINS, BILATERAL INDICATION / CLINICAL INFORMATION: pain; swelling. TECHNIQUE: Duplex doppler imaging was performed through the veins of both lower extremities using venous von nj and other maneuvers. COMPARISON: None available. FINDINGS: RIGHT COMMON FEMORAL VEIN: Negative. RIGHT FEMORAL VEIN: Negative. RIGHT POPLITEAL VEIN: Negative. RIGHT CALF VEINS: Negative. LEFT COMMON FEMORAL VEIN: Negative. LEFT FEMORAL VEIN: Negative. LEFT POPLITEAL VEIN: Negative. LEFT CALF VEINS: Negative. ADDITIONAL FINDINGS: 3.8 cm hypoechoic structure in the medial right thigh IMPRESSION: 1. No sonographic evidence for DVT in either lower extremity. 2. 3.8 cm hypoechoic structure in the medial right thigh Signer Name: Kennedy Quintero MD FACR Signed: 11/16/2020 6:44 PM Workstation Name: [id number]
[2020-11-16] MEDS: ENOXAPARIN 40 MG/0.4 ML INJ SUB-Q SCH (22:11)
[2020-11-17] MEDS: INSULIN REGULAR, HUMAN 100 UNITS/1 ML SUB-Q SCH ×4 (00:55→18:46)
[2020-11-17] MEDS: AMPICILLIN/SULBACTA 1.5GM/50ML 1.5 GM/50 ML BAG IV SCH ×3 (00:55→11:51)
--- NOTE | 2020-11-17 03:17 | XRay Report ---
CHEST - 1 VIEW INDICATION: follow up respiratory failure COMPARISON: Yesterday FINDINGS: SUPPORT DEVICES: Stable support device positioning. HEART: Stable cardiomediastinal silhouette. LUNGS/PLEURA: Innumerable pulmonary nodules are unchanged. ADDITIONAL FINDINGS: None. IMPRESSION: Unchanged exam. Signer Name: Suhail Bowser MD Signed: 11/17/2020 3:12 AM Workstation Name: [id number]
[2020-11-17] MEDS: ACETAMINOPHEN 325 MG/10.15 ML ORAL LIQD UNIT DOSE FEEDTUBE PRN (08:14)
[2020-11-17] MEDS: FAMOTIDINE 20 MG/2 ML INJ IV SCH ×2 (09:43→22:15)
--- NOTE | 2020-11-17 13:34 | Electrocardiograph Report ---
[facility] Test Date: 2020-11-14 Test Time: 20:36:07 Pat Name: TUTU LARA Department: Room: A259 1 Gender: F [employer]: wade : [id number] Requested By: THERESE SANTIAGO Order Number: [id number] Reading MD: Lester Lunsford Measurements Intervals [place] Rate: 83 P: 60 NC: 152 QRS: 36 QRSD: 79 T: 61 QT: 399 QTc: 468 Interpretive Statements Sinus rhythm Low voltage, extremity leads Consider old anterior infarct No previous ECG available for comparison Electronically Signed On 11-17-2020 13:34:01 EDT by Lester Lunsford
--- NOTE | 2020-11-17 14:17 | Progress Note ---
Assessment and Plan Acute hypoxemic respiratory failure, on mechanical ventilatory support. Acute encephalopathy, possibly on chronic. Acute cerebrovascular accident, subacute. Metastatic pulmonary nodules, possibly lung cancer. Hyponatremia. Elevated serum creatine kinase - fevers to 102F (? Cerebral) - treat with empiric CAP coverage X 5 days - daughter to visit later - dopplers negative for VTE - get EEG and address - neurology evaluation ongoing - continue care as below otherwise; - continue to wean supplemental oxygen for target O2 sat's > 92% acutely - VAP bundle addressed - continue lung protective strategies - continue bronchodilators with pulmonary hygiene per RT - wean per pulmonary driven protocols otherwise - continue Daily SAT and SBT assessment as tolerated - continue accuchecks with glycemic control per SSI (While critically ill target blood glucose of 140-180 mg/dL; avoid hypoglycemia) - sedation prn for target RASS 0 to -1 - avoid nephrotoxins, renally dose all medications - continue to avoid benzodiazepine's, reduce the possibility of delirium - AB's per ID rec's - prn analgesia per CPOT score - Maintenance of sleep-wake cycle, avoid delirium - enteral nutritional support at goal rate as tolerated - G.I. & VTE prophylaxis - PT/OT/ROM exercises - continue mobility protocols for pressure ulcer prophylaxis - Monitor hemodynamics closely - continue other care per attending / other consultants - discharge planning ongoing concurrently COVID SPECIFIC INTERVENTIONS - Remdesivir as per ID/Pulmonary developed protocols - systemic steroids for severe COVID-19 infection empirically - follow repeat COVID tests results - zinc and vitamin C supplementation - Monitor inflammatory markers per facility protocol - ferritin, Ddimer, CRP - therapeutic anticoagulation per system Protocol based on d-dimer and clinical considerations - Continue contact and airborne isolation .... Re-evaluate in am & prn CONDITION: CRITICAL PROGNOSIS: GUARDED CODE STATUS: FULL CODE The high probability of a clinically significant, sudden or life-threatening deterioration of the [respiratory, cardiovascular & neurologic] system(s) required my full and direct attention, intervention and personal management. The aggregate critical care time was [36] minutes without overlap. Time includes spent on; [x] Data Review and interpretation [x] Patient assessment and monitoring of vital signs [x] Documentation [x] Medication orders and management Subjective Date of service: 11/17/20 Principal diagnosis: Ac. hypoxemic resp failure; Ac. encephalopathy; Acute CVA; Metast. lung CA Interval history: Patient is seen today for: Acute hypoxemic respiratory failure; Acute ence phalopathy; Acute cerebrovascular accident; Metastatic pulmonary nodules (lung cancer per daughter) Seen and examined at bedside; 24hour events reviewed; nursing and respiratory care staff consulted; no adverse overnight events reported to me; resting peacefully in bed; remains on MVS; AMS is persistent; febrile up to 102F; no emesis or overt aspiration Objective Vital Signs - 12hr 11/17/20 11/17/20 11/17/20 03:00 03:20 04:00 Temperature 99.8 F H Pulse Rate 97 H 99 H 106 H Pulse Rate [ From Monitor] Respiratory 18 21 Rate Blood Pressure 134/62 134/62 125/67 O2 Sat by Pulse 97 98 Oximetry 11/17/20 11/17/20 11/17/20 05:00 06:00 07:00 Temperature Pulse Rate 105 H 106 H 107 H Pulse Rate [ From Monitor] Respiratory 21 20 22 Rate Blood Pressure 115/62 122/63 117/63 O2 Sat by Pulse 94 96 94 Oximetry 11/17/20 11/17/20 11/17/20 07:52 08:00 09:00 Temperature 102.1 F H Pulse Rate 111 H 113 H 100 H Pulse Rate [ 113 H From Monitor] Respiratory 23 21 Rate Blood Pressure 117/63 135/72 115/57 O2 Sat by Pulse 97 95 95 Oximetry 11/17/20 11/17/20 11/17/20 10:00 11:00 12:00 Temperature 100.7 F H Pulse Rate 95 H 90 94 H Pulse Rate [ 91 H From Monitor] Respiratory 20 19 19 Rate Blood Pressure 121/56 121/56 121/62 O2 Sat by Pulse 95 97 96 Oximetry 11/17/20 11/17/20 12:31 13:00 Temperature Pulse Rate 91 H 90 Pulse Rate [ From Monitor] Respiratory 19 21 Rate Blood Pressure 121/62 130/63 O2 Sat by Pulse 97 97 Oximetry Constitutional: other (elderly female with mildly increased respiratory effort at rest on MVS) Eyes: non-icteric ENT: oropharynx moist, other (ETT 23 cm MICHAEL) Neck: supple, no JVD Effort: mildly labored Ascultation: Bilateral: diminished breath sounds, rhonchi Percussion: Bilateral: not dull Cardiovascular: regular rate and rhythm Gastrointestinal: normoactive bowel sounds, soft, non-tender, non-distended Integumentary: normal Extremities: no cyanosis, no edema, pulses normal, no ischemia or petechiae Neurologic: pupils equal and round, unable to assess Psychiatric: other (unable to assess re: AMS) CBC and BMP: 11/15/20 04:19 11/15/20 04:19 ABG, PT/INR, D-dimer: ABG ABG pH 7.503 (7.320-7.450) H 11/17/20 03:42 POC ABG pCO2 34.2 mmHg (32.0-48.0) 11/17/20 03:42 POC ABG pO2 63.5 mmHg (83-108) L 11/17/20 03:42 POC ABG HCO3 26.3 11/17/20 03:42 ABG O2 Saturation 94.4 (0-100) 11/17/20 03:42 PT/INR, D-dimer PT 12.8 Sec. (12.2-14.9) 11/14/20 14:06 INR 0.98 (0.87-1.13) 11/14/20 14:06 Abnormal lab findings: Abnormal Labs 11/14/20 11/14/20 11/14/20 14:00 14:06 14:06 RBC 5.27 H Hgb 14.7 H Hct 43.7 H MCH RDW 15.8 H Lymph % (Auto) 6.2 L Lymph # (Auto) 0.7 L Seg Neutrophils % 89.2 H Seg Neutrophils # 9.5 H Thrombin Time 19.8 H ABG pH POC ABG pCO2 POC ABG pO2 ABG Oxyhemoglobin ABG Sodium ABG Glucose Sodium Chloride Glucose POC Glucose 150 H Calcium Phosphorus Total Creatine Kinase C-Reactive Protein Total Protein Albumin Arterial Blood Glucose Arterial Blood Ionized Calcium Coronavirus (PCR) 11/14/20 11/14/20 11/15/20 14:06 14:42 04:07 RBC Hgb Hct MCH RDW Lymph % (Auto) Lymph # (Auto) Seg Neutrophils % Seg Neutrophils # Thrombin Time ABG pH POC ABG pCO2 POC ABG pO2 71.3 L ABG Oxyhemoglobin 92.6 L ABG Sodium ABG Glucose 118 H Sodium 129 L Chloride 93 L Glucose 155 H POC Glucose 50 L Calcium Phosphorus Total Creatine Kinase 185 H C-Reactive Protein Total Protein 10.4 H Albumin 3.7 L Arterial Blood Glucose 118 H Arterial Blood Ionized Calcium 4.4 L Coronavirus (PCR) 11/15/20 11/15/20 11/15/20 04:19 04:19 05:28 RBC Hgb Hct MCH 26 L RDW 15.9 H Lymph % (Auto) 8.1 L Lymph # (Auto) 0.8 L Seg Neutrophils % 84.8 H Seg Neutrophils # 8.3 H Thrombin Time ABG pH POC ABG pCO2 POC ABG pO2 ABG Oxyhemoglobin ABG Sodium ABG Glucose Sodium Chloride Glucose 53 L POC Glucose 156 H Calcium 8.1 L Phosphorus Total Creatine Kinase C-Reactive Protein Total Protein Albumin 2.7 L Arterial Blood Glucose Arterial Blood Ionized Calcium Coronavirus (PCR) 11/15/20 11/15/20 11/15/20 06:20 11:43 15:39 RBC Hgb Hct MCH RDW Lymph % (Auto) Lymph # (Auto) Seg Neutrophils % Seg Neutrophils # Thrombin Time ABG pH 7.486 H POC ABG pCO2 31.5 L POC ABG pO2 ABG Oxyhemoglobin ABG Sodium ABG Glucose 58 L Sodium Chloride Glucose POC Glucose 180 H Calcium Phosphorus 1.90 L Total Creatine Kinase C-Reactive Protein 4.80 H Total Protein Albumin Arterial Blood Glucose 58 L Arterial Blood Ionized Calcium Coronavirus (PCR) 11/15/20 11/15/20 11/15/20 17:01 23:24 Unknown RBC Hgb Hct MCH RDW Lymph % (Auto) Lymph # (Auto) Seg Neutrophils % Seg Neutrophils # Thrombin Time ABG pH POC ABG pCO2 POC ABG pO2 ABG Oxyhemoglobin ABG Sodium ABG Glucose Sodium Chloride Glucose POC Glucose 227 H 256 H Calcium Phosphorus Total Creatine Kinase C-Reactive Protein Total Protein Albumin Arterial Blood Glucose Arterial Blood Ionized Calcium Coronavirus (PCR) Positive A 11/16/20 11/16/20 11/16/20 03:58 05:13 12:02 RBC Hgb Hct MCH RDW Lymph % (Auto) Lymph # (Auto) Seg Neutrophils % Seg Neutrophils # Thrombin Time ABG pH 7.525 H POC ABG pCO2 POC ABG pO2 ABG Oxyhemoglobin ABG Sodium 132.4 L ABG Glucose 204 H Sodium Chloride Glucose POC Glucose 190 H 218 H Calcium Phosphorus Total Creatine Kinase C-Reactive Protein Total Protein Albumin Arterial Blood Glucose 204 H Arterial Blood Ionized Calcium Coronavirus (PCR) 11/16/20 11/16/20 11/17/20 17:05 23:35 03:42 RBC Hgb Hct MCH RDW Lymph % (Auto) Lymph # (Auto) Seg Neutrophils % Seg Neutrophils # Thrombin Time ABG pH 7.503 H POC ABG pCO2 POC ABG pO2 63.5 L ABG Oxyhemoglobin ABG Sodium 128.6 L ABG Glucose 227 H Sodium Chloride Glucose POC Glucose 224 H 237 H Calcium Phosphorus Total Creatine Kinase C-Reactive Protein Total Protein Albumin Arterial Blood Glucose 227 H Arterial Blood Ionized Calcium Coronavirus (PCR) 11/17/20 05:23 RBC Hgb Hct MCH RDW Lymph % (Auto) Lymph # (Auto) Seg Neutrophils % Seg Neutrophils # Thrombin Time ABG pH POC ABG pCO2 POC ABG pO2 ABG Oxyhemoglobin ABG Sodium ABG Glucose Sodium Chloride Glucose POC Glucose 221 H Calcium Phosphorus Total Creatine Kinase C-Reactive Protein Total Protein Albumin Arterial Blood Glucose Arterial Blood Ionized Calcium Coronavirus (PCR) Chest x-ray: image reviewed Allied health notes reviewed: nursing
--- NOTE | 2020-11-17 17:00 | Progress Note ---
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 Acute hypoxemic respiratory failure COVID-19 infection Metastatic lung cancer Possible acute CVA Metabolic encephalopathy Hyponatremia hypoglycemia Hypoglycemia History of CVA with aphasia Vascular dementia Severe protein calorie malnutrition Febrile illness -CCM, neurology, ID consulted, appreciate recommendations -Frequent neuro checks -EEG pending -Droplet/Contact isolation -MV, wean as tolerated, VAP bundle -Daughter requesting for DNR and hospice service -Continue D5 10 for now to prevent hypoglycemia, -abx for CAP coverage -CM consult to aid in placement of hospice DVT and GI prophylaxis: PPI, Lovenox, SCDS to BLE while in bed The high probability of a clinically significant, sudden or life threatening deterioration of the [multi] system(s) required my full and direct attention, intervention and personal management. The aggregate critical care time was [35.] minutes. This time is in addition to time spent performing reported procedures but includes the following: [x] Data Review and interpretation [x] Patient assessment and monitoring of vital signs [x] Documentation [x] Medication orders and management History Interval history: This is a 70-year-old female with 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 Patient was fo und to have a focal neurological deficit with symptoms consistent with CVA, hypoxemia and inability to protect her airway the patient was intubated and placed on mechanical ventilation. Patient was found to have acute encephalopathy, metastatic lung cancer. Patient was admitted to the ICU as a COVID-19 PUI with consults to infectious disease, neurology and CCM. 11/15: Patient family requested a DNR and hospice placement 11/16: Infectious disease signed off, pending hospice placement 11/17: Patient was febrile to 102.1 this morning and she was started on antibiotic therapy for CAP coverage for 5 days. At the time my examination patient was sedated on propofol on assist control tidal volume 450, rate 12, PEEP 6, 35% FiO2 and later she was trialed on CPAP 05/05 with a possibility to extubate. technology services manager is working on obtaining hospice placement per daughter's wishes. However given COVID-19 positive status patient would not qualify for inpatient hospice care and will need home hospice. EEG pending. Hospitalist Physical - Constitutional Vitals: Temp Pulse Resp BP Pulse Ox 100.7 F H 90 21 130/63 97 11/17/20 12:00 11/17/20 13:00 11/17/20 13:00 11/17/20 13:00 11/17/20 13:00 General appearance: Present: no acute distress, cachectic - EENT Eyes: Present: PERRL - Neck Neck: Absent: masses or JVD - Respiratory Respiratory effort: normal Respiratory: bilateral: diminished - Cardiovascular Rhythm: regular Heart Sounds: Present: S1 & S2, systolic murmur. Absent: diastolic murmur - Extremities Extremities: no ischemia, pulses intact, pulses symmetrical, No edema, normal temperature, normal color Peripheral Pulses: within normal limits - Abdominal General gastrointestinal: soft, non-tender, non-distended, normal bowel sounds - Integumentary Integumentary: Present: warm, dry - Psychiatric Psychiatric: other (sedated on MV) - Neurologic Neurologic: other (sedated) HEART Score - HEART Score Troponin: Troponin T 0.010 ng/mL (0.00-0.029) 11/14/20 14:06 Results - Labs CBC & Chem 7: 11/15/20 04:19 11/15/20 04:19 Labs: Laboratory Last Values WBC 9.6 K/mm3 (4.5-11.0) 11/15/20 04:19 RBC 4.58 M/mm3 (3.65-5.03) 11/15/20 04:19 Hgb 12.1 gm/dl (10.1-14.3) 11/15/20 04:19 Hct 38.2 % (30.3-42.9) 11/15/20 04:19 MCV 83 fl (79-97) 11/15/20 04:19 MCH 26 pg (28-32) L 11/15/20 04:19 MCHC 32 % (30-34) 11/15/20 04:19 RDW 15.9 % (13.2-15.2) H 11/15/20 04:19 Plt Count 297 K/mm3 (140-440) 11/15/20 04:19 Lymph % (Auto) 8.1 % (13.4-35.0) L 11/15/20 04:19 [place] % (Auto) 7.0 % (0.0-7.3) 11/15/20 04:19 Eos % (Auto) 0.0 % (0.0-4.3) 11/15/20 04:19 Baso % (Auto) 0.1 % (0.0-1.8) 11/15/20 04:19 Lymph # (Auto) 0.8 K/mm3 (1.2-5.4) L 11/15/20 04:19 [place] # (Auto) 0.7 K/mm3 (0.0-0.8) 11/15/20 04:19 Eos # (Auto) 0.0 K/mm3 (0.0-0.4) 11/15/20 04:19 Baso # (Auto) 0.0 K/mm3 (0.0-0.1) 11/15/20 04:19 Add Manual Diff Complete 11/15/20 04:19 Seg Neutrophils % 84.8 % (40.0-70.0) H 11/15/20 04:19 Nucleated RBC % Not Reportable 11/15/20 04:19 Seg Neutrophils # 8.3 K/mm3 (1.8-7.7) H 11/15/20 04:19 WBC Morphology Not Reportable 11/15/20 04:19 Hypersegmented Neuts Not Reportable 11/15/20 04:19 Hyposegmented Neuts Not Reportable 11/15/20 04:19 Hypogranular Neuts Not Reportable 11/15/20 04:19 Smudge Cells Not Reportable 11/15/20 04:19 Toxic Granulation Not Reportable 11/15/20 04:19 Toxic Vacuolation Not Reportable 11/15/20 04:19 Dohle Bodies Not Reportable 11/15/20 04:19 Pelger-Huet Anomaly Not Reportable 11/15/20 04:19 Osbaldo Rods Not Reportable 11/15/20 04:19 Platelet Estimate Not Reportable 11/15/20 04:19 Clumped Platelets Not Reportable 11/15/20 04:19 Plt Clumps, EDTA Not Reportable 11/15/20 04:19 Large Platelets Not Reportable 11/15/20 04:19 Giant Platelets Not Reportable 11/15/20 04:19 Platelet Satelliting Not Reportable 11/15/20 04:19 Plt Morphology Comment Not Reportable 11/15/20 04:19 RBC Morphology Not Reportable 11/15/20 04:19 Dimorphic RBCs Not Reportable 11/15/20 04:19 Polychromasia Not Reportable 11/15/20 04:19 Hypochromasia Not Reportable 11/15/20 04:19 Poikilocytosis Not Reportable 11/15/20 04:19 Anisocytosis Not Reportable 11/15/20 04:19 Microcytosis Not Reportable 11/15/20 04:19 Macrocytosis Not Reportable 11/15/20 04:19 Spherocytes Not Reportable 11/15/20 04:19 Pappenheimer Bodies Not Reportable 11/15/20 04:19 Sickle Cells Not Reportable 11/15/20 04:19 Target Cells Not Reportable 11/15/20 04:19 Tear Drop Cells Not Reportable 11/15/20 04:19 Ovalocytes Not Reportable 11/15/20 04:19 Helmet Cells Not Reportable 11/15/20 04:19 Montanez-Icard Bodies Not Reportable 11/15/20 04:19 [place] Rings Not Reportable 11/15/20 04:19 [place] Cells Not Reportable 11/15/20 04:19 Bite Cells Not Reportable 11/15/20 04:19 Crenated Cell Not Reportable 11/15/20 04:19 Elliptocytes Not Reportable 11/15/20 04:19 Acanthocytes (Spur) Not Reportable 11/15/20 04:19 Rouleaux Not Reportable 11/15/20 04:19 Hemoglobin C Crystals Not Reportable 11/15/20 04:19 Schistocytes Not Reportable 11/15/20 04:19 Malaria parasites Not Reportable 11/15/20 04:19 Zak Bodies Not Reportable 11/15/20 04:19 Hem Pathologist Commnt Not Reportable 11/15/20 04:19 PT 12.8 Sec. (12.2-14.9) 11/14/20 14:06 INR 0.98 (0.87-1.13) 11/14/20 14:06 APTT 26.0 Sec. (24.2-36.6) 11/14/20 14:06 Thrombin Time 19.8 Sec. (15.1-19.6) H 11/14/20 14:06 ABG pH 7.481 (7.320-7.450) H 11/17/20 14:27 POC ABG pCO2 36.3 mmHg (32.0-48.0) 11/17/20 14:27 POC ABG pO2 69.1 mmHg (83-108) L 11/17/20 14:27 POC ABG HCO3 26.5 11/17/20 14:27 ABG O2 Saturation 95.0 (0-100) 11/17/20 14:27 POC ABG Base Excess 3.1 11/17/20 14:27 ABG Hemoglobin 12.6 (12.0-17.5) 11/17/20 14:27 ABG Oxyhemoglobin 94.1 (94-98) 11/17/20 14:27 ABG Methemoglobin 0.3 (0.0-1.5) 11/17/20 14:27 ABG Sodium 126.7 mmol/L (136.0-145.0) L 11/17/20 14:27 ABG Potassium 4.2 mmol/L (3.40-4.50) 11/17/20 14:27 ABG Chloride 99.0 mmol/L (98-107) 11/17/20 14:27 ABG Glucose 329 mg/dL (65-95) H 11/17/20 14:27 Carboxyhemoglobin 0.6 (0.5-1.5) 11/17/20 14:27 FiO2 % 35 11/17/20 14:27 Sodium 139 mmol/L (137-145) D 11/15/20 04:19 Potassium 4.2 mmol/L (3.6-5.0) 11/15/20 04:19 Chloride 103.0 mmol/L (98-107) 11/15/20 04:19 Carbon Dioxide 23 mmol/L (22-30) 11/15/20 04:19 Anion Gap 17 mmol/L 11/15/20 04:19 BUN 13 mg/dL (7-17) 11/15/20 04:19 Creatinine 0.6 mg/dL (0.6-1.2) 11/15/20 04:19 Estimated GFR > 60 ml/min 11/15/20 04:19 BUN/Creatinine Ratio 22 % 11/15/20 04:19 Glucose 53 mg/dL (65-100) L 11/15/20 04:19 POC Glucose 221 mg/dL (70-105) H 11/17/20 05:23 Calcium 8.1 mg/dL (8.4-10.2) L 11/15/20 04:19 Phosphorus 1.90 mg/dL (2.5-4.5) L 11/15/20 15:39 Magnesium 1.90 mg/dL (1.7-2.3) 11/15/20 15:39 Total Bilirubin 0.40 mg/dL (0.1-1.2) 11/15/20 04:19 AST 31 units/L (5-40) 11/15/20 04:19 ALT 12 units/L (7-56) 11/15/20 04:19 Alkaline Phosphatase 59 units/L (35-129) 11/15/20 04:19 Ammonia 33.0 umol/L (25-60) 11/14/20 14:06 Total Creatine Kinase 185 units/L (30-135) H 11/14/20 14:06 CK-MB (CK-2) 1.1 ng/mL (0.0-4.0) 11/14/20 14:06 CK-MB (CK-2) Rel Index 0.5 (0-4) 11/14/20 14:06 Troponin T 0.010 ng/mL (0.00-0.029) 11/14/20 14:06 C-Reactive Protein 4.80 mg/dL (0.00-1.30) H 11/15/20 15:39 Total Protein 7.5 g/dL (6.3-8.2) D 11/15/20 04:19 Albumin 2.7 g/dL (3.9-5) L 11/15/20 04:19 Albumin/Globulin Ratio 0.6 % 11/15/20 04:19 Procalcitonin 0.81 ng/mL (<0.15) 11/15/20 15:39 TSH 1.450 mlU/mL (0.270-4.200) 11/14/20 14:06 Arterial Blood Glucose 329 mg/dL (65-95) H 11/17/20 14:27 Arterial Blood Ionized Calcium 4.6 mg/dL (4.6-5.3) 11/17/20 14:27 Urine Color Yellow (Yellow) 11/14/20 16:01 Urine Turbidity Clear (Clear) 11/14/20 16:01 Urine pH 6.0 (5.0-7.0) 11/14/20 16:01 Ur Specific [place] 1.015 (1.003-1.030) 11/14/20 16:01 Urine Protein 30 mg/dl mg/dL (Negative) 11/14/20 16:01 Urine Glucose (UA) 150 mg/dL (Negative) 11/14/20 16:01 Urine Ketones Neg mg/dL (Negative) 11/14/20 16:01 Urine Blood Neg (Negative) 11/14/20 16:01 Urine Nitrite Neg (Negative) 11/14/20 16:01 Urine Bilirubin Neg (Negative) 11/14/20 16:01 Urine Urobilinogen < 2.0 mg/dL (<2.0) 11/14/20 16:01 Ur Leukocyte Esterase Neg (Negative) 11/14/20 16:01 Urine WBC (Auto) 1.0 /HPF (0.0-6.0) 11/14/20 16:01 Urine RBC (Auto) 1.0 /HPF (0.0-6.0) 11/14/20 16:01 U Epithel Cells (Auto) < 1.0 /HPF (0-13.0) 11/14/20 16:01 Urine Mucus Few /HPF 11/14/20 16:01 Urine Opiates Screen Presumptive negative 11/14/20 14:48 Urine Methadone Screen Presumptive negative 11/14/20 14:48 Ur Barbiturates Screen Presumptive negative 11/14/20 14:48 Ur Phencyclidine Scrn Presumptive negative 11/14/20 14:48 Ur Amphetamines Screen Presumptive negative 11/14/20 14:48 U Benzodiazepines Scrn Presumptive negative 11/14/20 14:48 Urine Cocaine Screen Presumptive negative 11/14/20 14:48 U Marijuana (THC) Screen Presumptive negative 11/14/20 14:48 Drugs of Abuse Note Disclamer 11/14/20 14:48 Plasma/Serum Alcohol 0.01 % (0-0.07) 11/14/20 14:06 Coronavirus (PCR) Positive (Negative) A 11/15/20 Unknown Microbiology: Microbiology 11/14/20 16:44 Tracheal Aspirate Sputum Culture - Final Kaufman/IV: Voiding Method Indwelling Catheter Active Medications - Current Medications Current Medications: Generic Name Dose Route Start Last Admin Trade Name Freq PRN Reason Stop Dose Admin Acetaminophen 650 mg 11/14/20 17:04 11/17/20 08:14 Acetaminophen 325 Mg/10.15 Ml Oral Liqd Unit Dose FEEDTUBE 650 mg Q6H PRN Administration Pain MILD(1-3)/Fever >100.5/PICKARD Albuterol 2.5 mg 11/14/20 17:04 Albuterol 2.5 Mg/3 Ml Nebu IH Q3HRT PRN Shortness Of Breath Lipase/Protease/Amylase 1 each 11/16/20 11:10 Lipase 10,500/Protease 25,000/Amylase 43,750 (Units) Dr Alvarez FEEDTUBE PRN PRN For Clogged Feeding Tube Dextrose 0 ml 11/15/20 04:13 11/15/20 04:46 Dextrose 50% In Water (25gm) 50 Ml Syringe IV 20 ml Q30MIN PRN Administration Hypoglycemia Protocol Enoxaparin Sodium 40 mg 11/15/20 22:00 11/16/20 22:11 Enoxaparin 40 Mg/0.4 Ml Inj SUB-Q 40 mg QDAY@2200 GLORIA Administration Protocol Famotidine 20 mg 11/15/20 10:00 11/17/20 09:43 Famotidine 20 Mg/2 Ml Inj IV 20 mg BID GLORIA Administration Hydrophilic Ointment 1 applic 11/14/20 14:00 Lip Therapy Vaseline TP Q2HR PRN Dry Lips Propofol 1,000 mg in 100 mls @ 2.041 mls/hr 11/14/20 14:00 11/17/20 12:11 Diprivan 10 Mg/Ml IV 0 mcg/kg/min TITR GLORIA 0 mls/hr Titration Protocol 5 MCG/KG/MIN Levofloxacin/Dextrose 750 mg in 150 mls @ 100 mls/hr 11/17/20 14:00 11/17/20 13:43 Levaquin 750mg/150ml IV 11/20/20 15:29 100 mls/hr Q24H GLORIA Administration Protocol Insulin Human Regular 0 units 11/16/20 00:00 11/17/20 11:52 Insulin Regular, Human 100 Units/1 Ml SUB-Q 2 units Q6H GLORIA Administration Protocol Multi-Ingred Cream/Lotion/Oil/Oint 1 applic 11/14/20 14:00 Mineral Oil/Petrolatum, White Ophth Oint 3.5 Gm OU Q4HR PRN Dry Eye(s) Simple Syrup 15 ml 11/16/20 11:10 Simple Syrup 15 Ml FEEDTUBE PRN PRN Hypoglycemia Simple Syrup 30 ml 11/16/20 11:10 Simple Syrup 15 Ml FEEDTUBE PRN PRN Hypoglycemia Sodium Bicarbonate 325 mg 11/16/20 11:10 Sodium Bicarbonate 325 Mg Tab FEEDTUBE PRN PRN For Clogged Feeding Tube Sodium Chloride 10 ml 11/14/20 22:00 11/17/20 09:43 Sodium Chloride 0.9% 10 Ml Flush Syringe IV 10 ml BID GLORIA Administration Sodium Chloride 10 ml 11/14/20 17:04 Sodium Chloride 0.9% 10 Ml Flush Syringe IV PRN PRN LINE FLUSH Nutrition/Malnutrition Assess - Dietary Evaluation Nutrition/Malnutrition Findings: Nutrition Notes Start: 11/15/20 08:22 Freq: Status: Active Protocol: Document 11/16/20 11:12 LP (Rec: 11/16/20 11:13 LP [id number]) Nutrition Notes Need for Assessment generated from: MD Order Initial or Follow up Brief Note Subjective/Other Information Consult for TF. Nutrition Intervention Nutrition Support: Promote at 60ml/hr Flush with 50ml q6h Kcal 1,440 Protein (gm) 90 Fluid (mL) 1,208 Goal #1 Meet at least 80% of kcal and protein needs Anticipated Discharge Needs: Unable to determine at this time Follow-Up By: 11/18/20 Additional Comments Follow for TF start/tolerance <JANIE SHIPLEY R - Last Filed: 11/17/20 23:41> Assessment and Plan Assessment and plan: I saw and evaluated the patient. I agree with the findings and the plan of care as documented in the Nurse Practitioner's~note, Hospitalist Physical - Constitutional Vitals: Temp Pulse Resp BP Pulse Ox 99.1 F 93 H 18 118/62 95 11/17/20 19:34 11/17/20 22:52 11/17/20 22:15 04/19/21 22:52 11/17/20 22:52 HEART Score - HEART Score Troponin: Troponin T 0.010 ng/mL (0.00-0.029) 11/14/20 14:06 Results - Labs CBC & Chem 7: 11/15/20 04:19 11/15/20 04:19 Labs: Laboratory Last Values WBC 9.6 K/mm3 (4.5-11.0) 11/15/20 04:19 RBC 4.58 M/mm3 (3.65-5.03) 11/15/20 04:19 Hgb 12.1 gm/dl (10.1-14.3) 11/15/20 04:19 Hct 38.2 % (30.3-42.9) 11/15/20 04:19 MCV 83 fl (79-97) 11/15/20 04:19 MCH 26 pg (28-32) L 11/15/20 04:19 MCHC 32 % (30-34) 11/15/20 04:19 RDW 15.9 % (13.2-15.2) H 11/15/20 04:19 Plt Count 297 K/mm3 (140-440) 11/15/20 04:19 Lymph % (Auto) 8.1 % (13.4-35.0) L 11/15/20 04:19 [place] % (Auto) 7.0 % (0.0-7.3) 11/15/20 04:19 Eos % (Auto) 0.0 % (0.0-4.3) 11/15/20 04:19 Baso % (Auto) 0.1 % (0.0-1.8) 11/15/20 04:19 Lymph # (Auto) 0.8 K/mm3 (1.2-5.4) L 11/15/20 04:19 [place] # (Auto) 0.7 K/mm3 (0.0-0.8) 11/15/20 04:19 Eos # (Auto) 0.0 K/mm3 (0.0-0.4) 11/15/20 04:19 Baso # (Auto) 0.0 K/mm3 (0.0-0.1) 11/15/20 04:19 Add Manual Diff Complete 11/15/20 04:19 Seg Neutrophils % 84.8 % (40.0-70.0) H 11/15/20 04:19 Nucleated RBC % Not Reportable 11/15/20 04:19 Seg Neutrophils # 8.3 K/mm3 (1.8-7.7) H 11/15/20 04:19 WBC Morphology Not Reportable 11/15/20 04:19 Hypersegmented Neuts Not Reportable 11/15/20 04:19 Hyposegmented Neuts Not Reportable 11/15/20 04:19 Hypogranular Neuts Not Reportable 11/15/20 04:19 Smudge Cells Not Reportable 11/15/20 04:19 Toxic Granulation Not Reportable 11/15/20 04:19 Toxic Vacuolation Not Reportable 11/15/20 04:19 Dohle Bodies Not Reportable 11/15/20 04:19 Pelger-Huet Anomaly Not Reportable 11/15/20 04:19 Osbaldo Rods Not Reportable 11/15/20 04:19 Platelet Estimate Not Reportable 11/15/20 04:19 Clumped Platelets Not Reportable 11/15/20 04:19 Plt Clumps, EDTA Not Reportable 11/15/20 04:19 Large Platelets Not Reportable 11/15/20 04:19 Giant Platelets Not Reportable 11/15/20 04:19 Platelet Satelliting Not Reportable 11/15/20 04:19 Plt Morphology Comment Not Reportable 11/15/20 04:19 RBC Morphology Not Reportable 11/15/20 04:19 Dimorphic RBCs Not Reportable 11/15/20 04:19 Polychromasia Not Reportable 11/15/20 04:19 Hypochromasia Not Reportable 11/15/20 04:19 Poikilocytosis Not Reportable 11/15/20 04:19 Anisocytosis Not Reportable 11/15/20 04:19 Microcytosis Not Reportable 11/15/20 04:19 Macrocytosis Not Reportable 11/15/20 04:19 Spherocytes Not Reportable 11/15/20 04:19 Pappenheimer Bodies Not Reportable 11/15/20 04:19 Sickle Cells Not Reportable 11/15/20 04:19 Target Cells Not Reportable 11/15/20 04:19 Tear Drop Cells Not Reportable 11/15/20 04:19 Ovalocytes Not Reportable 11/15/20 04:19 Helmet Cells Not Reportable 11/15/20 04:19 Montanez-Icard Bodies Not Reportable 11/15/20 04:19 [place] Rings Not Reportable 11/15/20 04:19 [place] Cells Not Reportable 11/15/20 04:19 Bite Cells Not Reportable 11/15/20 04:19 Crenated Cell Not Reportable 11/15/20 04:19 Elliptocytes Not Reportable 11/15/20 04:19 Acanthocytes (Spur) Not Reportable 11/15/20 04:19 Rouleaux Not Reportable 11/15/20 04:19 Hemoglobin C Crystals Not Reportable 11/15/20 04:19 Schistocytes Not Reportable 11/15/20 04:19 Malaria parasites Not Reportable 11/15/20 04:19 Zak Bodies Not Reportable 11/15/20 04:19 Hem Pathologist Commnt Not Reportable 11/15/20 04:19 PT 12.8 Sec. (12.2-14.9) 11/14/20 14:06 INR 0.98 (0.87-1.13) 11/14/20 14:06 APTT 26.0 Sec. (24.2-36.6) 11/14/20 14:06 Thrombin Time 19.8 Sec. (15.1-19.6) H 11/14/20 14:06 ABG pH 7.481 (7.320-7.450) H 11/17/20 14:27 POC ABG pCO2 36.3 mmHg (32.0-48.0) 11/17/20 14:27 POC ABG pO2 69.1 mmHg (83-108) L 11/17/20 14:27 POC ABG HCO3 26.5 11/17/20 14:27 ABG O2 Saturation 95.0 (0-100) 11/17/20 14:27 POC ABG Base Excess 3.1 11/17/20 14:27 ABG Hemoglobin 12.6 (12.0-17.5) 11/17/20 14:27 ABG Oxyhemoglobin 94.1 (94-98) 11/17/20 14:27 ABG Methemoglobin 0.3 (0.0-1.5) 11/17/20 14:27 ABG Sodium 126.7 mmol/L (136.0-145.0) L 11/17/20 14:27 ABG Potassium 4.2 mmol/L (3.40-4.50) 11/17/20 14:27 ABG Chloride 99.0 mmol/L (98-107) 11/17/20 14:27 ABG Glucose 329 mg/dL (65-95) H 11/17/20 14:27 Carboxyhemoglobin 0.6 (0.5-1.5) 11/17/20 14:27 FiO2 % 35 11/17/20 14:27 Sodium 139 mmol/L (137-145) D 11/15/20 04:19 Potassium 4.2 mmol/L (3.6-5.0) 11/15/20 04:19 Chloride 103.0 mmol/L (98-107) 11/15/20 04:19 Carbon Dioxide 23 mmol/L (22-30) 11/15/20 04:19 Anion Gap 17 mmol/L 11/15/20 04:19 BUN 13 mg/dL (7-17) 11/15/20 04:19 Creatinine 0.6 mg/dL (0.6-1.2) 11/15/20 04:19 Estimated GFR > 60 ml/min 11/15/20 04:19 BUN/Creatinine Ratio 22 % 11/15/20 04:19 Glucose 53 mg/dL (65-100) L 11/15/20 04:19 POC Glucose 196 mg/dL (70-105) H 11/17/20 18:38 Calcium 8.1 mg/dL (8.4-10.2) L 11/15/20 04:19 Phosphorus 1.90 mg/dL (2.5-4.5) L 11/15/20 15:39 Magnesium 1.90 mg/dL (1.7-2.3) 11/15/20 15:39 Total Bilirubin 0.40 mg/dL (0.1-1.2) 11/15/20 04:19 AST 31 units/L (5-40) 11/15/20 04:19 ALT 12 units/L (7-56) 11/15/20 04:19 Alkaline Phosphatase 59 units/L (35-129) 11/15/20 04:19 Ammonia 33.0 umol/L (25-60) 11/14/20 14:06 Total Creatine Kinase 185 units/L (30-135) H 11/14/20 14:06 CK-MB (CK-2) 1.1 ng/mL (0.0-4.0) 11/14/20 14:06 CK-MB (CK-2) Rel Index 0.5 (0-4) 11/14/20 14:06 Troponin T 0.010 ng/mL (0.00-0.029) 11/14/20 14:06 C-Reactive Protein 4.80 mg/dL (0.00-1.30) H 11/15/20 15:39 Total Protein 7.5 g/dL (6.3-8.2) D 11/15/20 04:19 Albumin 2.7 g/dL (3.9-5) L 11/15/20 04: Albumin/Globulin Ratio 0.6 % 11/15/20 04: Procalcitonin 0.81 ng/mL (<0.15) 11/15/20 15:39 TSH 1.450 mlU/mL (0.270-4.200) 11/14/20 14:06 Arterial Blood Glucose 329 mg/dL (65-95) H 11/17/20 14:27 Arterial Blood Ionized Calcium 4.6 mg/dL (4.6-5.3) 11/17/20 14:27 Urine Color Yellow (Yellow) 11/14/20 16:01 Urine Turbidity Clear (Clear) 11/14/20 16:01 Urine pH 6.0 (5.0-7.0) 11/14/20 16:01 Ur Specific [place] 1.015 (1.003-1.030) 11/14/20 16:01 Urine Protein 30 mg/dl mg/dL (Negative) 11/14/20 16:01 Urine Glucose (UA) 150 mg/dL (Negative) 11/14/20 16:01 Urine Ketones Neg mg/dL (Negative) 11/14/20 16:01 Urine Blood Neg (Negative) 11/14/20 16:01 Urine Nitrite Neg (Negative) 11/14/20 16:01 Urine Bilirubin Neg (Negative) 11/14/20 16: Urine Urobilinogen < 2.0 mg/dL (<2.0) 11/14/20 16:01 Ur Leukocyte Esterase Neg (Negative) 11/14/20 16:01 Urine WBC (Auto) 1.0 /HPF (0.0-6.0) 11/14/20 16:01 Urine RBC (Auto) 1.0 /HPF (0.0-6.0) 11/14/20 16:01 U Epithel Cells (Auto) < 1.0 /HPF (0-13.0) 11/14/20 16:01 Urine Mucus Few /HPF 11/14/20 16:01 Urine Opiates Screen Presumptive negative 11/14/20 14:48 Urine Methadone Screen Presumptive negative 11/14/20 14:48 Ur Barbiturates Screen Presumptive negative 11/14/20 14:48 Ur Phencyclidine Scrn Presumptive negative 11/14/20 14:48 Ur Amphetamines Screen Presumptive negative 11/14/20 14:48 U Benzodiazepines Scrn Presumptive negative 11/14/20 14:48 Urine Cocaine Screen Presumptive negative 11/14/20 14:48 U Marijuana (THC) Screen Presumptive negative 11/14/20 14:48 Drugs of Abuse Note Disclamer 11/14/20 14:48 Plasma/Serum Alcohol 0.01 % (0-0.07) 11/14/20 14:06 Coronavirus (PCR) Positive (Negative) A 11/15/20 Unknown Kaufman/IV: Voiding Method Indwelling Catheter Active Medications - Current Medications Current Medications: Generic Name Dose Route Start Last Admin Trade Name Freq PRN Reason Stop Dose Admin Acetaminophen 650 mg 11/14/20 17:04 11/17/20 08:14 Acetaminophen 325 Mg/10.15 Ml Oral Liqd Unit Dose FEEDTUBE 650 mg Q6H PRN Administration Pain MILD(1-3)/Fever >100.5/PICKARD Albuterol 2.5 mg 11/14/20 17:04 Albuterol 2.5 Mg/3 Ml Nebu IH Q3HRT PRN Shortness Of Breath Lipase/Protease/Amylase 1 each 11/16/20 11:10 Lipase 10,500/Protease 25,000/Amylase 43,750 (Units) Dr Cap FEEDTUBE PRN PRN For Clogged Feeding Tube Dextrose 0 ml 11/15/20 04:13 11/15/20 04:46 Dextrose 50% In Water (25gm) 50 Ml Syringe IV 20 ml Q30MIN PRN Administration Hypoglycemia Protocol Enoxaparin Sodium 40 mg 11/15/20 22:00 11/17/20 22:15 Enoxaparin 40 Mg/0.4 Ml Inj SUB-Q 40 mg QDAY@2200 GLORIA Administration Protocol Famotidine 20 mg 11/15/20 10:00 11/17/20 22:15 Famotidine 20 Mg/2 Ml Inj IV 20 mg BID GLORIA Administration Hydrophilic Ointment 1 applic 11/14/20 14:00 Lip Therapy Vaseline TP Q2HR PRN Dry Lips Propofol 1,000 mg in 100 mls @ 2.041 mls/hr 11/14/20 14:00 11/17/20 12:11 Diprivan 10 Mg/Ml IV 0 mcg/kg/min TITR GLORIA 0 mls/hr Titration Protocol 5 MCG/KG/MIN Levofloxacin/Dextrose 750 mg in 150 mls @ 100 mls/hr 11/17/20 14:00 11/17/20 13:43 Levaquin 750mg/150ml IV 11/20/20 15:29 100 mls/hr Q24H GLORIA Administration Protocol Insulin Human Regular 0 units 11/16/20 00:00 11/17/20 18:46 Insulin Regular, Human 100 Units/1 Ml SUB-Q 2 units Q6H GLORIA Administration Protocol Multi-Ingred Cream/Lotion/Oil/Oint 1 applic 11/14/20 14:00 Mineral Oil/Petrolatum, White Ophth Oint 3.5 Gm OU Q4HR PRN Dry Eye(s) Simple Syrup 15 ml 11/16/20 11:10 Simple Syrup 15 Ml FEEDTUBE PRN PRN Hypoglycemia Simple Syrup 30 ml 11/16/20 11:10 Simple Syrup 15 Ml FEEDTUBE PRN PRN Hypoglycemia Sodium Bicarbonate 325 mg 11/16/20 11:10 Sodium Bicarbonate 325 Mg Tab FEEDTUBE PRN PRN For Clogged Feeding Tube Sodium Chloride 10 ml 11/14/20 22:00 11/17/20 22:15 Sodium Chloride 0.9% 10 Ml Flush Syringe IV 10 ml BID GLORIA Administration Sodium Chloride 10 ml 11/14/20 17:04 Sodium Chloride 0.9% 10 Ml Flush Syringe IV PRN PRN LINE FLUSH Nutrition/Malnutrition Assess - Dietary Evaluation Nutrition/Malnutrition Findings: Nutrition Notes Start: 11/15/20 08:22 Freq: Status: Active Protocol: Document 04/18/21 11:12 LP (Rec: 11/16/20 11:13 LP [id number]) Nutrition Notes Need for Assessment generated from: MD Order Initial or Follow up Brief Note Subjective/Other Information Consult for TF. Nutrition Intervention Nutrition Support: Promote at 60ml/hr Flush with 50ml q6h Kcal 1,440 Protein (gm) 90 Fluid (mL) 1,208 Goal #1 Meet at least 80% of kcal and protein needs Anticipated Discharge Needs: Unable to determine at this time Follow-Up By: 11/18/20 Additional Comments Follow for TF start/tolerance
[2020-11-17] MEDS: ENOXAPARIN 40 MG/0.4 ML INJ SUB-Q SCH (22:15)
[2020-11-18] MEDS ORDERED: INSULIN REGULAR, HUMAN 100 UNITS/1 ML ONE (00:07)
[2020-11-18] MEDS: INSULIN REGULAR, HUMAN 100 UNITS/1 ML SUB-Q SCH ×4 (00:15→19:00)
--- NOTE | 2020-11-18 03:24 | XRay Report ---
CHEST - 1 VIEW INDICATION: follow up respiratory failure COMPARISON: Yesterday FINDINGS: SUPPORT DEVICES: Stable support device positioning. HEART: Stable cardiomediastinal silhouette. LUNGS/PLEURA: Innumerable pulmonary nodules again noted, unchanged. ADDITIONAL FINDINGS: None. IMPRESSION: Unchanged exam. Signer Name: Suhail Bowser MD Signed: 11/18/2020 3:20 AM Workstation Name: [id number]
[2020-11-18] MEDS: FAMOTIDINE 20 MG TAB PO SCH ×2 (10:03→21:50)
[2020-11-18] MEDS ORDERED: D5W/0.45% NACL 1,000 ML IV SCH (14:00)
--- NOTE | 2020-11-18 14:17 | Progress Note ---
Assessment and Plan Acute hypoxemic respiratory failure, on mechanical ventilatory support. Acute encephalopathy, possibly on chronic. Acute cerebrovascular accident, subacute. Metastatic pulmonary nodules, possibly lung cancer. Hyponatremia. Elevated serum creatine kinase - get 2 hour ABG on SBT and extubate if acceptable - prn BIPAP post extubation - afebrile today - continue care as below otherwise; - complete empiric CAP coverage X 5 days - follow EEG and address - neurology evaluation ongoing - continue care as below otherwise; - continue to wean supplemental oxygen for target O2 sat's > 92% acutely - VAP bundle addressed - continue lung protective strategies - continue bronchodilators with pulmonary hygiene per RT - wean per pulmonary driven protocols otherwise - continue Daily SAT and SBT assessment as tolerated - continue accuchecks with glycemic control per SSI (While critically ill target blood glucose of 140-180 mg/dL; avoid hypoglycemia) - sedation prn for target RASS 0 to -1 - avoid nephrotoxins, renally dose all medications - continue to avoid benzodiazepine's, reduce the possibility of delirium - AB's per ID rec's - prn analgesia per CPOT score - Maintenance of sleep-wake cycle, avoid delirium - enteral nutritional support at goal rate as tolerated - G.I. & VTE prophylaxis - PT/OT/ROM exercises - continue mobility protocols for pressure ulcer prophylaxis - Monitor hemodynamics closely - continue other care per attending / other consultants - discharge planning ongoing concurrently COVID SPECIFIC INTERVENTIONS - Remdesivir as per ID/Pulmonary developed protocols - systemic steroids for severe COVID-19 infection empirically - follow repeat COVID tests results - zinc and vitamin C supplementation - Monitor inflammatory markers per facility protocol - ferritin, Ddimer, CRP - therapeutic anticoagulation per system Protocol based on d-dimer and clinical considerations - Continue contact and airborne isolation .... Re-evaluate in am & prn CONDITION: CRITICAL PROGNOSIS: GUARDED CODE STATUS: FULL CODE The high probability of a clinically significant, sudden or life-threatening deterioration of the [respiratory, cardiovascular & neurologic] system(s) required my full and direct attention, intervention and personal management. The aggregate critical care time was [32] minutes without overlap. Time includes spent on; [x] Data Review and interpretation [x] Patient assessment and monitoring of vital signs [x] Documentation [x] Medication orders and management Subjective Date of service: 11/18/20 Principal diagnosis: Ac. hypoxemic resp failure; Ac. encephalopathy; Acute CVA; Metast. lung CA Interval history: Patient is seen today for: Acute hypoxemic respiratory failure; Acute encephalopathy; Acute cerebrovascular accident; Metastatic pulmonary nodules (lung cancer per daughter) Seen and examined at bedside; 24hour events reviewed; nursing and respiratory care staff consulted; no adverse overnight events reported to me; resting peacefully in bed; tolerating SBT very well today; attempts to open eyes to name calling; secretions good; no emesis or overt aspiration Objective Vital Signs - 12hr 11/18/20 11/18/20 11/18/20 03:00 03:30 03:39 Temperature 98.8 F Pulse Rate 88 Pulse Rate [ 99 H From Monitor] Respiratory 21 19 Rate Blood Pressure 120/51 O2 Sat by Pulse 95 95 Oximetry 11/18/20 11/18/20 11/18/20 04:00 05:00 05:35 Temperature Pulse Rate 89 90 87 Pulse Rate [ From Monitor] Respiratory 19 20 19 Rate Blood Pressure 105/57 126/64 O2 Sat by Pulse 97 95 Oximetry 11/18/20 11/18/20 11/18/20 06:00 07:00 07:31 Temperature Pulse Rate 83 89 83 Pulse Rate [ From Monitor] Respiratory 18 19 14 Rate Blood Pressure 116/54 129/69 129/69 O2 Sat by Pulse 97 96 97 Oximetry 11/18/20 11/18/20 11/18/20 07:52 08:00 08:01 Temperature 99.8 F H Pulse Rate 88 87 Pulse Rate [ From Monitor] Respiratory 23 Rate Blood Pressure 129/69 142/67 O2 Sat by Pulse 97 96 Oximetry 11/18/20 11/18/20 11/18/20 08:31 09:00 09:31 Temperature Pulse Rate 83 86 84 Pulse Rate [ From Monitor] Respiratory 20 19 17 Rate Blood Pressure 142/67 118/61 142/67 O2 Sat by Pulse 96 96 96 Oximetry 11/18/20 11/18/20 11/18/20 10:00 11:16 12:00 Temperature 99.8 F H Pulse Rate 88 87 Pulse Rate [ From Monitor] Respiratory 21 19 Rate Blood Pressure 131/63 117/56 O2 Sat by Pulse 97 96 Oximetry 11/18/20 13:26 Temperature Pulse Rate Pulse Rate [ From Monitor] Respiratory Rate Blood Pressure O2 Sat by Pulse 93 Oximetry Constitutional: other (elderly female withoutincreased respiratory effort at rest on MVS) Eyes: non-icteric ENT: oropharynx moist, other (ETT 23 cm MICHAEL) Neck: supple, no JVD Effort: mildly labored Ascultation: Bilateral: diminished breath sounds, rhonchi (scant) Percussion: Bilateral: not dull Cardiovascular: regular rate and rhythm Gastrointestinal: normoactive bowel sounds, soft, non-tender, non-distended Integumentary: normal Extremities: no cyanosis, no edema, pulses normal, no ischemia or petechiae Neurologic: pupils equal and round, unable to assess Psychiatric: other (unable to assess re: AMS) CBC and BMP: 11/15/20 04:19 11/15/20 04:19 ABG, PT/INR, D-dimer: ABG ABG pH 7.486 (7.320-7.450) H 11/18/20 04:00 POC ABG pCO2 36.9 mmHg (32.0-48.0) 11/18/20 04:00 POC ABG pO2 76.3 mmHg (83-108) L 11/18/20 04:00 POC ABG HCO3 27.2 11/18/20 04:00 ABG O2 Saturation 96.3 (0-100) 11/18/20 04:00 PT/INR, D-dimer PT 12.8 Sec. (12.2-14.9) 11/14/20 14:06 INR 0.98 (0.87-1.13) 11/14/20 14:06 Abnormal lab findings: Abnormal Labs 11/14/20 11/14/20 11/14/20 14:00 14:06 14:06 RBC 5.27 H Hgb 14.7 H Hct 43.7 H MCH RDW 15.8 H Lymph % (Auto) 6.2 L Lymph # (Auto) 0.7 L Seg Neutrophils % 89.2 H Seg Neutrophils # 9.5 H Thrombin Time 19.8 H ABG pH POC ABG pCO2 POC ABG pO2 ABG Oxyhemoglobin ABG Sodium ABG Glucose Sodium Chloride Glucose POC Glucose 150 H Calcium Phosphorus Total Creatine Kinase C-Reactive Protein Total Protein Albumin Arterial Blood Glucose Arterial Blood Ionized Calcium Coronavirus (PCR) 11/14/20 11/14/20 11/15/20 14:06 14:42 04:07 RBC Hgb Hct MCH RDW Lymph % (Auto) Lymph # (Auto) Seg Neutrophils % Seg Neutrophils # Thrombin Time ABG pH POC ABG pCO2 POC ABG pO2 71.3 L ABG Oxyhemoglobin 92.6 L ABG Sodium ABG Glucose 118 H Sodium 129 L Chloride 93 L Glucose 155 H POC Glucose 50 L Calcium Phosphorus Total Creatine Kinase 185 H C-Reactive Protein Total Protein 10.4 H Albumin 3.7 L Arterial Blood Glucose 118 H Arterial Blood Ionized Calcium 4.4 L Coronavirus (PCR) 11/15/20 11/15/20 11/15/20 04:19 04:19 05:28 RBC Hgb Hct MCH 26 L RDW 15.9 H Lymph % (Auto) 8.1 L Lymph # (Auto) 0.8 L Seg Neutrophils % 84.8 H Seg Neutrophils # 8.3 H Thrombin Time ABG pH POC ABG pCO2 POC ABG pO2 ABG Oxyhemoglobin ABG Sodium ABG Glucose Sodium Chloride Glucose 53 L POC Glucose 156 H Calcium 8.1 L Phosphorus Total Creatine Kinase C-Reactive Protein Total Protein Albumin 2.7 L Arterial Blood Glucose Arterial Blood Ionized Calcium Coronavirus (PCR) 11/15/20 11/15/20 11/15/20 06:20 11:43 15:39 RBC Hgb Hct MCH RDW Lymph % (Auto) Lymph # (Auto) Seg Neutrophils % Seg Neutrophils # Thrombin Time ABG pH 7.486 H POC ABG pCO2 31.5 L POC ABG pO2 ABG Oxyhemoglobin ABG Sodium ABG Glucose 58 L Sodium Chloride Glucose POC Glucose 180 H Calcium Phosphorus 1.90 L Total Creatine Kinase C-Reactive Protein 4.80 H Total Protein Albumin Arterial Blood Glucose 58 L Arterial Blood Ionized Calcium Coronavirus (PCR) 11/15/20 11/15/20 11/15/20 17:01 23:24 Unknown RBC Hgb Hct MCH RDW Lymph % (Auto) Lymph # (Auto) Seg Neutrophils % Seg Neutrophils # Thrombin Time ABG pH POC ABG pCO2 POC ABG pO2 ABG Oxyhemoglobin ABG Sodium ABG Glucose Sodium Chloride Glucose POC Glucose 227 H 256 H Calcium Phosphorus Total Creatine Kinase C-Reactive Protein Total Protein Albumin Arterial Blood Glucose Arterial Blood Ionized Calcium Coronavirus (PCR) Positive A 11/16/20 11/16/20 11/16/20 03:58 05:13 12:02 RBC Hgb Hct MCH RDW Lymph % (Auto) Lymph # (Auto) Seg Neutrophils % Seg Neutrophils # Thrombin Time ABG pH 7.525 H POC ABG pCO2 POC ABG pO2 ABG Oxyhemoglobin ABG Sodium 132.4 L ABG Glucose 204 H Sodium Chloride Glucose POC Glucose 190 H 218 H Calcium Phosphorus Total Creatine Kinase C-Reactive Protein Total Protein Albumin Arterial Blood Glucose 204 H Arterial Blood Ionized Calcium Coronavirus (PCR) 11/16/20 11/16/20 11/17/20 17:05 23:35 03:42 RBC Hgb Hct MCH RDW Lymph % (Auto) Lymph # (Auto) Seg Neutrophils % Seg Neutrophils # Thrombin Time ABG pH 7.503 H POC ABG pCO2 POC ABG pO2 63.5 L ABG Oxyhemoglobin ABG Sodium 128.6 L ABG Glucose 227 H Sodium Chloride Glucose POC Glucose 224 H 237 H Calcium Phosphorus Total Creatine Kinase C-Reactive Protein Total Protein Albumin Arterial Blood Glucose 227 H Arterial Blood Ionized Calcium Coronavirus (PCR) 11/17/20 11/17/20 11/17/20 05:23 11:44 14:27 RBC Hgb Hct MCH RDW Lymph % (Auto) Lymph # (Auto) Seg Neutrophils % Seg Neutrophils # Thrombin Time ABG pH 7.481 H POC ABG pCO2 POC ABG pO2 69.1 L ABG Oxyhemoglobin ABG Sodium 126.7 L ABG Glucose 329 H Sodium Chloride Glucose POC Glucose 221 H 240 H Calcium Phosphorus Total Creatine Kinase C-Reactive Protein Total Protein Albumin Arterial Blood Glucose 329 H Arterial Blood Ionized Calcium Coronavirus (PCR) 11/17/20 11/17/20 11/18/20 17:32 18:38 00:05 RBC Hgb Hct MCH RDW Lymph % (Auto) Lymph # (Auto) Seg Neutrophils % Seg Neutrophils # Thrombin Time ABG pH POC ABG pCO2 POC ABG pO2 ABG Oxyhemoglobin ABG Sodium ABG Glucose Sodium Chloride Glucose POC Glucose 221 H 196 H 202 H Calcium Phosphorus Total Creatine Kinase C-Reactive Protein Total Protein Albumin Arterial Blood Glucose Arterial Blood Ionized Calcium Coronavirus (PCR) 11/18/20 11/18/20 11/18/20 04:00 05:23 12:13 RBC Hgb Hct MCH RDW Lymph % (Auto) Lymph # (Auto) Seg Neutrophils % Seg Neutrophils # Thrombin Time ABG pH 7.486 H POC ABG pCO2 POC ABG pO2 76.3 L ABG Oxyhemoglobin ABG Sodium 128.7 L ABG Glucose 205 H Sodium Chloride Glucose POC Glucose 177 H 161 H Calcium Phosphorus Total Creatine Kinase C-Reactive Protein Total Protein Albumin Arterial Blood Glucose 205 H Arterial Blood Ionized Calcium Coronavirus (PCR) Chest x-ray: image reviewed Allied health notes reviewed: nursing
[2020-11-18 15:15] LABS: Blood Urea Nitrogen 16 mg/dL (7-17); Calcium 8.1 mg/dL (8.4-10.2); Hemolysis Index 17
[2020-11-18 15:18] LABS: BUN/Creatinine Ratio 27
--- NOTE | 2020-11-18 15:35 | XRay Report ---
ABDOMEN ONE VIEW INDICATION / CLINICAL INFORMATION: Confirm New placement of NGT.. COMPARISON: None available. FINDINGS: Nasogastric tube is present with the tip superimposed over the expected position of the gastric antru m Signer Name: Kennedy Quintero MD FACR Signed: 11/18/2020 3:31 PM Workstation Name: [id number]
--- NOTE | 2020-11-18 17:01 | Progress Note ---
<ANIRedWOLFMerly - Last Filed: 11/18/20 17:01> Assessment and Plan Assessment and plan: This is a 70-year-old female who is currently visiting her family in [facility] with CVA complicated by Aphasia, Vascular Dementia, Cerebral Atherosclerosis, Metastatic Lung Neoplasm brought to the ER by EMS after she was found unresponsive by family in the morning. Acute hypoxemic respiratory failure COVID-19 infection Metastatic lung cancer Possible acute CVA Metabolic encephalopathy Hyponatremia History of CVA with aphasia Vascular dementia Severe protein calorie malnutrition Hyponatremia Hypochloremia -CCM, neurology, ID consulted, appreciate recommendations -Frequent neuro checks -EEG pending -Droplet/Contact isolation -11/18 extubated -Daughter requesting for DNR and hospice service -Continue D5 10 for now to prevent hypoglycemia, -abx for CAP coverage -CM consult to aid in placement of hospice DVT and GI prophylaxis: PPI, Lovenox, SCDS to BLE while in bed The high probability of a clinically significant, sudden or life threatening deterioration of the [multi] system(s) required my full and direct attention, intervention and personal management. The aggregate critical care time was [35.] minutes. This time is in addition to time spent performing reported procedures but includes the following: [x] Data Review and interpretation [x] Patient assessment and monitoring of vital signs [x] Documentation [x] Medication orders and management History Interval history: This is a 70-year-old female with 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 Patient was found to have a focal neurological deficit with symptoms consistent with CVA, hypoxemia and inability to protect her airway the patient was intubated and placed on mechanical ventilation. Patient was found to have acute encephalopathy, metastatic lung cancer. Patient was admitted to the ICU as a COVID-19 PUI with consults to infectious disease, neurology and CCM. 11/15: Patient family requested a DNR and hospice placement 11/16: Infectious disease signed off, pending hospice placement 11/17: Patient was febrile to 102.1 this morning and she was started on antibiotic therapy for CAP coverage for 5 days. At the time my examination patient was sedated on propofol on assist control tidal volume 450, rate 12, PEEP 6, 35% FiO2 and later she was trialed on CPAP 05/05 with a possibility to extubate. manager clinical informatics is working on obtaining hospice placement per daughter's wishes. However given COVID-19 positive status patient would not qualify for inpatient hospice care and will need home hospice. EEG pending. 11/18: No acute events reported overnight, patient was on a CPAP trial at the time of examination on 01/08 and [facility] plans to extubate the patient to BiPAP nightly as needed. It was reported that patient had high residuals overnight however this morning she did not. She is hyponatremic and hypochloremic. Hospitalist Physical - Constitutional Vitals: Temp Pulse Resp BP Pulse Ox 97.7 F 125 H 24 108/58 96 11/18/20 16:00 11/18/20 16:00 11/18/20 16:00 11/18/20 16:00 11/18/20 16:00 General appearance: Present: no acute distress, cachectic, other (Resting comfortably on mechanical ventilation) - EENT Eyes: Present: PERRL - Neck Neck: Present: normal ROM - Respiratory Respiratory effort: normal - Cardiovascular Rhythm: regular - Extremities Extremities: no ischemia, pulses intact, pulses symmetrical, No edema, normal temperature, normal color Peripheral Pulses: within normal limits - Abdominal General gastrointestinal: soft, non-tender, non-distended - Integumentary Integumentary: Present: warm, dry - Psychiatric Psychiatric: other - Neurologic Neurologic: other (track/focus, do not follow commands) HEART Score - HEART Score Troponin: Troponin T 0.010 ng/mL (0.00-0.029) 11/14/20 14:06 Results - Labs CBC & Chem 7: 11/15/20 04:19 11/18/20 14:35 Labs: Laboratory Last Values WBC 9.6 K/mm3 (4.5-11.0) 11/15/20 04:19 RBC 4.58 M/mm3 (3.65-5.03) 11/15/20 04:19 Hgb 12.1 gm/dl (10.1-14.3) 11/15/20 04:19 Hct 38.2 % (30.3-42.9) 11/15/20 04:19 MCV 83 fl (79-97) 11/15/20 04:19 MCH 26 pg (28-32) L 11/15/20 04:19 MCHC 32 % (30-34) 11/15/20 04:19 RDW 15.9 % (13.2-15.2) H 11/15/20 04:19 Plt Count 297 K/mm3 (140-440) 11/15/20 04:19 Lymph % (Auto) 8.1 % (13.4-35.0) L 11/15/20 04:19 Tift % (Auto) 7.0 % (0.0-7.3) 11/15/20 04:19 Eos % (Auto) 0.0 % (0.0-4.3) 11/15/20 04:19 Baso % (Auto) 0.1 % (0.0-1.8) 11/15/20 04:19 Lymph # (Auto) 0.8 K/mm3 (1.2-5.4) L 11/15/20 04:19 Tift # (Auto) 0.7 K/mm3 (0.0-0.8) 11/15/20 04:19 Eos # (Auto) 0.0 K/mm3 (0.0-0.4) 11/15/20 04:19 Baso # (Auto) 0.0 K/mm3 (0.0-0.1) 11/15/20 04:19 Add Manual Diff Complete 11/15/20 04:19 Seg Neutrophils % 84.8 % (40.0-70.0) H 11/15/20 04:19 Nucleated RBC % Not Reportable 11/15/20 04:19 Seg Neutrophils # 8.3 K/mm3 (1.8-7.7) H 11/15/20 04:19 WBC Morphology Not Reportable 11/15/20 04:19 Hypersegmented Neuts Not Reportable 11/15/20 04:19 Hyposegmented Neuts Not Reportable 11/15/20 04:19 Hypogranular Neuts Not Reportable 11/15/20 04:19 Smudge Cells Not Reportable 11/15/20 04:19 Toxic Granulation Not Reportable 11/15/20 04:19 Toxic Vacuolation Not Reportable 11/15/20 04:19 Dohle Bodies Not Reportable 11/15/20 04:19 Pelger-Huet Anomaly Not Reportable 11/15/20 04:19 Osbaldo Rods Not Reportable 11/15/20 04:19 Platelet Estimate Not Reportable 11/15/20 04:19 Clumped Platelets Not Reportable 11/15/20 04:19 Plt Clumps, EDTA Not Reportable 11/15/20 04:19 Large Platelets Not Reportable 11/15/20 04:19 Giant Platelets Not Reportable 11/15/20 04:19 Platelet Satelliting Not Reportable 11/15/20 04:19 Plt Morphology Comment Not Reportable 11/15/20 04:19 RBC Morphology Not Reportable 11/15/20 04:19 Dimorphic RBCs Not Reportable 11/15/20 04:19 Polychromasia Not Reportable 11/15/20 04:19 Hypochromasia Not Reportable 11/15/20 04:19 Poikilocytosis Not Reportable 11/15/20 04:19 Anisocytosis Not Reportable 11/15/20 04:19 Microcytosis Not Reportable 11/15/20 04:19 Macrocytosis Not Reportable 11/15/20 04:19 Spherocytes Not Reportable 11/15/20 04:19 Pappenheimer Bodies Not Reportable 11/15/20 04:19 Sickle Cells Not Reportable 11/15/20 04:19 Target Cells Not Reportable 11/15/20 04:19 Tear Drop Cells Not Reportable 11/15/20 04:19 Ovalocytes Not Reportable 11/15/20 04:19 Helmet Cells Not Reportable 11/15/20 04:19 Montanez-Llano Del Medio Bodies Not Reportable 11/15/20 04:19 [place] Rings Not Reportable 11/15/20 04:19 Warren Cells Not Reportable 11/15/20 04:19 Bite Cells Not Reportable 11/15/20 04:19 Crenated Cell Not Reportable 11/15/20 04:19 Elliptocytes Not Reportable 11/15/20 04:19 Acanthocytes (Spur) Not Reportable 11/15/20 04:19 Rouleaux Not Reportable 11/15/20 04:19 Hemoglobin C Crystals Not Reportable 11/15/20 04:19 Schistocytes Not Reportable 11/15/20 04:19 Malaria parasites Not Reportable 11/15/20 04:19 Zak Bodies Not Reportable 11/15/20 04:19 Hem Pathologist Commnt Not Reportable 11/15/20 04:19 PT 12.8 Sec. (12.2-14.9) 11/14/20 14:06 INR 0.98 (0.87-1.13) 11/14/20 14:06 APTT 26.0 Sec. (24.2-36.6) 11/14/20 14:06 Thrombin Time 19.8 Sec. (15.1-19.6) H 11/14/20 14:06 ABG pH 7.496 (7.320-7.450) H 11/18/20 14:30 POC ABG pCO2 36.2 mmHg (32.0-48.0) 11/18/20 14:30 POC ABG pO2 58.6 mmHg (83-108) L 11/18/20 14:30 POC ABG HCO3 27.3 11/18/20 14:30 ABG O2 Saturation 92.8 (0-100) 11/18/20 14:30 POC ABG Base Excess 4.1 11/18/20 14:30 ABG Hemoglobin 12.3 (12.0-17.5) 11/18/20 14:30 ABG Oxyhemoglobin 91.6 (94-98) L 11/18/20 14:30 ABG Methemoglobin 0.3 (0.0-1.5) 11/18/20 14:30 ABG Sodium 129.5 mmol/L (136.0-145.0) L 11/18/20 14:30 ABG Potassium 4.6 mmol/L (3.40-4.50) H 11/18/20 14:30 ABG Chloride 100.0 mmol/L (98-107) 11/18/20 14:30 ABG Glucose 165 mg/dL (65-95) H 11/18/20 14:30 Carboxyhemoglobin 1.0 (0.5-1.5) 11/18/20 14:30 FiO2 % 40 11/18/20 14:30 Sodium 133 mmol/L (137-145) L 11/18/20 14:35 Potassium 4.9 mmol/L (3.6-5.0) 11/18/20 14:35 Chloride 96.5 mmol/L (98-107) L 11/18/20 14:35 Carbon Dioxide 28 mmol/L (22-30) 11/18/20 14:35 Anion Gap 13 mmol/L 11/18/20 14:35 BUN 16 mg/dL (7-17) 11/18/20 14:35 Creatinine 0.6 mg/dL (0.6-1.2) 11/18/20 14:35 Estimated GFR > 60 ml/min 11/18/20 14:35 BUN/Creatinine Ratio 27 % 11/18/20 14:35 Glucose 152 mg/dL (65-100) H 11/18/20 14:35 POC Glucose 161 mg/dL (70-105) H 11/18/20 12:13 Calcium 8.1 mg/dL (8.4-10.2) L 11/18/20 14:35 Phosphorus 2.70 mg/dL (2.5-4.5) 11/18/20 14:35 Magnesium 2.00 mg/dL (1.7-2.3) 11/18/20 14:35 Total Bilirubin 0.40 mg/dL (0.1-1.2) 11/15/20 04:19 AST 31 units/L (5-40) 11/15/20 04:19 ALT 12 units/L (7-56) 11/15/20 04:19 Alkaline Phosphatase 59 units/L (35-129) 11/15/20 04:19 Ammonia 33.0 umol/L (25-60) 11/14/20 14:06 Total Creatine Kinase 185 units/L (30-135) H 11/14/20 14:06 CK-MB (CK-2) 1.1 ng/mL (0.0-4.0) 11/14/20 14:06 CK-MB (CK-2) Rel Index 0.5 (0-4) 11/14/20 14:06 Troponin T 0.010 ng/mL (0.00-0.029) 11/14/20 14:06 C-Reactive Protein 4.80 mg/dL (0.00-1.30) H 11/15/20 15:39 Total Protein 7.5 g/dL (6.3-8.2) D 11/15/20 04:19 Albumin 2.7 g/dL (3.9-5) L 11/15/20 04:19 Albumin/Globulin Ratio 0.6 % 11/15/20 04:19 Procalcitonin 0.81 ng/mL (<0.15) 11/15/20 15:39 TSH 1.450 mlU/mL (0.270-4.200) 11/14/20 14:06 Arterial Blood Glucose 165 mg/dL (65-95) H 11/18/20 14:30 Arterial Blood Ionized Calcium 4.7 mg/dL (4.6-5.3) 11/18/20 14:30 Urine Color Yellow (Yellow) 11/14/20 16:01 Urine Turbidity Clear (Clear) 11/14/20 16:01 Urine pH 6.0 (5.0-7.0) 11/14/20 16:01 Ur Specific [place] 1.015 (1.003-1.030) 11/14/20 16:01 Urine Protein 30 mg/dl mg/dL (Negative) 11/14/20 16:01 Urine Glucose (UA) 150 mg/dL (Negative) 11/14/20 16:01 Urine Ketones Neg mg/dL (Negative) 11/14/20 16:01 Urine Blood Neg (Negative) 11/14/20 16:01 Urine Nitrite Neg (Negative) 11/14/20 16:01 Urine Bilirubin Neg (Negative) 11/14/20 16:01 Urine Urobilinogen < 2.0 mg/dL (<2.0) 11/14/20 16:01 Ur Leukocyte Esterase Neg (Negative) 11/14/20 16:01 Urine WBC (Auto) 1.0 /HPF (0.0-6.0) 11/14/20 16:01 Urine RBC (Auto) 1.0 /HPF (0.0-6.0) 11/14/20 16:01 U Epithel Cells (Auto) < 1.0 /HPF (0-13.0) 11/14/20 16:01 Urine Mucus Few /HPF 11/14/20 16:01 Urine Opiates Screen Presumptive negative 11/14/20 14:48 Urine Methadone Screen Presumptive negative 11/14/20 14:48 Ur Barbiturates Screen Presumptive negative 11/14/20 14:48 Ur Phencyclidine Scrn Presumptive negative 11/14/20 14:48 Ur Amphetamines Screen Presumptive negative 11/14/20 14:48 U Benzodiazepines Scrn Presumptive negative 11/14/20 14:48 Urine Cocaine Screen Presumptive negative 11/14/20 14:48 U Marijuana (THC) Screen Presumptive negative 11/14/20 14:48 Drugs of Abuse Note Disclamer 11/14/20 14:48 Plasma/Serum Alcohol 0.01 % (0-0.07) 11/14/20 14:06 Coronavirus (PCR) Positive (Negative) A 11/15/20 Unknown Kaufman/IV: Voiding Method Indwelling Catheter Active Medications - Current Medications Current Medications: Generic Name Dose Route Start Last Admin Trade Name Freq PRN Reason Stop Dose Admin Acetaminophen 650 mg 11/14/20 17:04 11/17/20 08:14 Acetaminophen 325 Mg/10.15 Ml Oral Liqd Unit Dose FEEDTUBE 650 mg Q6H PRN Administration Pain MILD(1-3)/Fever >100.5/PICKARD Albuterol 2.5 mg 11/14/20 17:04 Albuterol 2.5 Mg/3 Ml Nebu IH Q3HRT PRN Shortness Of Breath Lipase/Protease/Amylase 1 each 11/16/20 11:10 Lipase 10,500/Protease 25,000/Amylase 43,750 (Units) Dr Alvarez FEEDTUBE PRN PRN For Clogged Feeding Tube Dextrose 0 ml 11/15/20 04:13 11/15/20 04:46 Dextrose 50% In Water (25gm) 50 Ml Syringe IV 20 ml Q30MIN PRN Administration Hypoglycemia Protocol Enoxaparin Sodium 40 mg 11/15/20 22:00 11/17/20 22:15 Enoxaparin 40 Mg/0.4 Ml Inj SUB-Q 40 mg QDAY@2200 GLORIA Administration Protocol Famotidine 20 mg 11/18/20 10:00 11/18/20 10:03 Famotidine 20 Mg Tab PO 20 mg BID GLORIA Administration Hydrophilic Ointment 1 applic 11/14/20 14:00 Lip Therapy Vaseline TP Q2HR PRN Dry Lips Propofol 1,000 mg in 100 mls @ 2.041 mls/hr 11/14/20 14:00 11/17/20 12:11 Diprivan 10 Mg/Ml IV 0 mcg/kg/min TITR GLORIA 0 mls/hr Titration Protocol 5 MCG/KG/MIN Levofloxacin/Dextrose 750 mg in 150 mls @ 100 mls/hr 11/17/20 14:00 11/18/20 13:53 Levaquin 750mg/150ml IV 11/20/20 15:29 100 mls/hr Q24H GLORIA Administration Protocol Dextrose/Sodium Chloride 1,000 mls @ 42 mls/hr 11/18/20 14:00 D5/0.45ns IV DIRECT GLORIA Insulin Human Regular 0 units 11/16/20 00:00 11/18/20 13:51 Insulin Regular, Human 100 Units/1 Ml SUB-Q Not Given Q6H GLORIA Protocol Multi-Ingred Cream/Lotion/Oil/Oint 1 applic 11/14/20 14:00 Mineral Oil/Petrolatum, White Ophth Oint 3.5 Gm OU Q4HR PRN Dry Eye(s) Simple Syrup 15 ml 11/16/20 11:10 Simple Syrup 15 Ml FEEDTUBE PRN PRN Hypoglycemia Simple Syrup 30 ml 11/16/20 11:10 Simple Syrup 15 Ml FEEDTUBE PRN PRN Hypoglycemia Sodium Bicarbonate 325 mg 11/16/20 11:10 Sodium Bicarbonate 325 Mg Tab FEEDTUBE PRN PRN For Clogged Feeding Tube Sodium Chloride 10 ml 11/14/20 22:00 11/18/20 10:16 Sodium Chloride 0.9% 10 Ml Flush Syringe IV 10 ml BID GLORIA Administration Sodium Chloride 10 ml 11/14/20 17:04 Sodium Chloride 0.9% 10 Ml Flush Syringe IV PRN PRN LINE FLUSH Nutrition/Malnutrition Assess - Dietary Evaluation Nutrition/Malnutrition Findings: Nutrition Notes Start: 11/15/20 08:22 Freq: Status: Active Protocol: Document 11/18/20 11:30 CW (Rec: 11/18/20 14:51 CW [id number]) Nutrition Notes Initial or Follow up Reassessment Current Diagnosis Respiratory Failure,Stroke Other Pertinent Diagnosis Lung CA with Mets, Aphasia, Metabolic Encephalopathy Current Diet TF - Promote at 60 ml/hr Labs/Tests BG 161 Pertinent Medications Humulin Height 5 ft 9 in Weight 64 kg [place] Body Weight (kg) 65.90 BMI 20.8 Weight Status Appropriate Subjective/Other Information F/U for TF tolerance and ONS. Last night TF was no increased to goal d/t residuals. TF currently running at 45 ml/hr and is being well tolerated as of this morning. POC is to extubated today Percent of energy/protein needs met: 74%/88% Burn Absent Trauma Absent GI Symptoms None Current % PO Negligible Minimum of two criteria No physical signs of malnutrition #1 Nutrition Diagnosis Inadequate oral intake Diagnosis Progress(for reassessment Continues documentation) Is patient on ventilator? Yes Is Patient Ambulatory and/or Out of Bed No REE-([facility]-confined to bed) [phone] Calculation Used for Recommendations [facility] Additional Notes Protein needs are 77-128g (1.2 -2g/kg) Fluid needs are 1ml/kcal Nutrition Intervention Change Diet Order: Continue TF or extubation Nutrition Support: Promote at 60ml/hr Flush with 50ml q6h Kcal 1,440 Protein (gm) 90 Fluid (mL) 1,208 Goal #1 Meet at least 80% of kcal and protein needs Anticipated Discharge Needs: Unable to determine at this time Follow-Up By: 11/20/20 Additional Comments F/U for vent status; TF tolerance <JANIE SHIPLEY R - Last Filed: 11/18/20 23:14> Assessment and Plan Assessment and plan: I saw and evaluated the patient. I agree with the findings and the plan of care as documented in the Nurse Practitioner's~note, with the following corrections and additions. --Extubated today, on N/C, resume TF, wait for hospice placement Hospitalist Physical - Constitutional Vitals: Temp Pulse Resp BP Pulse Ox 100.4 F H 123 H 23 108/58 97 11/18/20 19:57 11/18/20 22:00 11/18/20 22:00 11/18/20 22:00 11/18/20 22:00 HEART Score - HEART Score Troponin: Troponin T 0.010 ng/mL (0.00-0.029) 11/14/20 14:06 Results - Labs CBC & Chem 7: 11/15/20 04:19 11/18/20 14:35 Labs: Laboratory Last Values WBC 9.6 K/mm3 (4.5-11.0) 11/15/20 04:19 RBC 4.58 M/mm3 (3.65-5.03) 11/15/20 04:19 Hgb 12.1 gm/dl (10.1-14.3) 11/15/20 04:19 Hct 38.2 % (30.3-42.9) 11/15/20 04:19 MCV 83 fl (79-97) 11/15/20 04:19 MCH 26 pg (28-32) L 11/15/20 04:19 MCHC 32 % (30-34) 11/15/20 04:19 RDW 15.9 % (13.2-15.2) H 11/15/20 04:19 Plt Count 297 K/mm3 (140-440) 11/15/20 04:19 Lymph % (Auto) 8.1 % (13.4-35.0) L 11/15/20 04:19 Tift % (Auto) 7.0 % (0.0-7.3) 11/15/20 04:19 Eos % (Auto) 0.0 % (0.0-4.3) 11/15/20 04:19 Baso % (Auto) 0.1 % (0.0-1.8) 11/15/20 04:19 Lymph # (Auto) 0.8 K/mm3 (1.2-5.4) L 11/15/20 04:19 Tift # (Auto) 0.7 K/mm3 (0.0-0.8) 11/15/20 04:19 Eos # (Auto) 0.0 K/mm3 (0.0-0.4) 11/15/20 04:19 Baso # (Auto) 0.0 K/mm3 (0.0-0.1) 11/15/20 04:19 Add Manual Diff Complete 11/15/20 04:19 Seg Neutrophils % 84.8 % (40.0-70.0) H 11/15/20 04:19 Nucleated RBC % Not Reportable 11/15/20 04:19 Seg Neutrophils # 8.3 K/mm3 (1.8-7.7) H 11/15/20 04:19 WBC Morphology Not Reportable 11/15/20 04:19 Hypersegmented Neuts Not Reportable 11/15/20 04:19 Hyposegmented Neuts Not Reportable 11/15/20 04:19 Hypogranular Neuts Not Reportable 11/15/20 04:19 Smudge Cells Not Reportable 11/15/20 04:19 Toxic Granulation Not Reportable 11/15/20 04:19 Toxic Vacuolation Not Reportable 11/15/20 04:19 Dohle Bodies Not Reportable 11/15/20 04:19 Pelger-Huet Anomaly Not Reportable 11/15/20 04:19 Osbaldo Rods Not Reportable 11/15/20 04:19 Platelet Estimate Not Reportable 11/15/20 04:19 Clumped Platelets Not Reportable 11/15/20 04:19 Plt Clumps, EDTA Not Reportable 11/15/20 04:19 Large Platelets Not Reportable 11/15/20 04:19 Giant Platelets Not Reportable 11/15/20 04:19 Platelet Satelliting Not Reportable 11/15/20 04:19 Plt Morphology Comment Not Reportable 11/15/20 04:19 RBC Morphology Not Reportable 11/15/20 04:19 Dimorphic RBCs Not Reportable 11/15/20 04:19 Polychromasia Not Reportable 11/15/20 04:19 Hypochromasia Not Reportable 11/15/20 04:19 Poikilocytosis Not Reportable 11/15/20 04:19 Anisocytosis Not Reportable 11/15/20 04:19 Microcytosis Not Reportable 11/15/20 04:19 Macrocytosis Not Reportable 11/15/20 04:19 Spherocytes Not Reportable 11/15/20 04:19 Pappenheimer Bodies Not Reportable 11/15/20 04:19 Sickle Cells Not Reportable 11/15/20 04:19 Target Cells Not Reportable 11/15/20 04:19 Tear Drop Cells Not Reportable 11/15/20 04:19 Ovalocytes Not Reportable 11/15/20 04:19 Helmet Cells Not Reportable 11/15/20 04:19 Montanez-Llano Del Medio Bodies Not Reportable 11/15/20 04:19 [place] Rings Not Reportable 11/15/20 04:19 Warren Cells Not Reportable 11/15/20 04:19 Bite Cells Not Reportable 11/15/20 04:19 Crenated Cell Not Reportable 11/15/20 04:19 Elliptocytes Not Reportable 11/15/20 04:19 Acanthocytes (Spur) Not Reportable 11/15/20 04:19 Rouleaux Not Reportable 11/15/20 04:19 Hemoglobin C Crystals Not Reportable 11/15/20 04:19 Schistocytes Not Reportable 11/15/20 04:19 Malaria parasites Not Reportable 11/15/20 04:19 Zak Bodies Not Reportable 11/15/20 04:19 Hem Pathologist Commnt Not Reportable 11/15/20 04:19 PT 12.8 Sec. (12.2-14.9) 11/14/20 14:06 INR 0.98 (0.87-1.13) 11/14/20 14:06 APTT 26.0 Sec. (24.2-36.6) 11/14/20 14:06 Thrombin Time 19.8 Sec. (15.1-19.6) H 11/14/20 14:06 ABG pH 7.496 (7.320-7.450) H 11/18/20 14:30 POC ABG pCO2 36.2 mmHg (32.0-48.0) 11/18/20 14:30 POC ABG pO2 58.6 mmHg (83-108) L 11/18/20 14:30 POC ABG HCO3 27.3 11/18/20 14:30 ABG O2 Saturation 92.8 (0-100) 11/18/20 14:30 POC ABG Base Excess 4.1 11/18/20 14:30 ABG Hemoglobin 12.3 (12.0-17.5) 11/18/20 14:30 ABG Oxyhemoglobin 91.6 (94-98) L 11/18/20 14:30 ABG Methemoglobin 0.3 (0.0-1.5) 11/18/20 14:30 ABG Sodium 129.5 mmol/L (136.0-145.0) L 11/18/20 14:30 ABG Potassium 4.6 mmol/L (3.40-4.50) H 11/18/20 14:30 ABG Chloride 100.0 mmol/L (98-107) 11/18/20 14:30 ABG Glucose 165 mg/dL (65-95) H 11/18/20 14:30 Carboxyhemoglobin 1.0 (0.5-1.5) 11/18/20 14:30 FiO2 % 40 11/18/20 14:30 Sodium 133 mmol/L (137-145) L 11/18/20 14:35 Potassium 4.9 mmol/L (3.6-5.0) 11/18/20 14:35 Chloride 96.5 mmol/L (98-107) L 11/18/20 14:35 Carbon Dioxide 28 mmol/L (22-30) 11/18/20 14:35 Anion Gap 13 mmol/L 11/18/20 14:35 BUN 16 mg/dL (7-17) 11/18/20 14:35 Creatinine 0.6 mg/dL (0.6-1.2) 11/18/20 14:35 Estimated GFR > 60 ml/min 11/18/20 14:35 BUN/Creatinine Ratio 27 % 11/18/20 14:35 Glucose 152 mg/dL (65-100) H 11/18/20 14:35 POC Glucose 157 mg/dL (70-105) H 11/18/20 19:11 Calcium 8.1 mg/dL (8.4-10.2) L 11/18/20 14:35 Phosphorus 2.70 mg/dL (2.5-4.5) 11/18/20 14:35 Magnesium 2.00 mg/dL (1.7-2.3) 11/18/20 14:35 Total Bilirubin 0.40 mg/dL (0.1-1.2) 11/15/20 04:19 AST 31 units/L (5-40) 11/15/20 04:19 ALT 12 units/L (7-56) 11/15/20 04:19 Alkaline Phosphatase 59 units/L (35-129) 11/15/20 04:19 Ammonia 33.0 umol/L (25-60) 11/14/20 14:06 Total Creatine Kinase 185 units/L (30-135) H 11/14/20 14:06 CK-MB (CK-2) 1.1 ng/mL (0.0-4.0) 11/14/20 14:06 CK-MB (CK-2) Rel Index 0.5 (0-4) 11/14/20 14:06 Troponin T 0.010 ng/mL (0.00-0.029) 11/14/20 14:06 C-Reactive Protein 4.80 mg/dL (0.00-1.30) H 11/15/20 15:39 Total Protein 7.5 g/dL (6.3-8.2) D 11/15/20 04:19 Albumin 2.7 g/dL (3.9-5) L 11/15/20 04:19 Albumin/Globulin Ratio 0.6 % 11/15/20 04:19 Procalcitonin 0.81 ng/mL (<0.15) 11/15/20 15:39 TSH 1.450 mlU/mL (0.270-4.200) 11/14/20 14:06 Arterial Blood Glucose 165 mg/dL (65-95) H 11/18/20 14:30 Arterial Blood Ionized Calcium 4.7 mg/dL (4.6-5.3) 11/18/20 14:30 Urine Color Yellow (Yellow) 11/14/20 16:01 Urine Turbidity Clear (Clear) 11/14/20 16:01 Urine pH 6.0 (5.0-7.0) 11/14/20 16:01 Ur Specific [place] 1.015 (1.003-1.030) 11/14/20 16:01 Urine Protein 30 mg/dl mg/dL (Negative) 11/14/20 16:01 Urine Glucose (UA) 150 mg/dL (Negative) 11/14/20 16:01 Urine Ketones Neg mg/dL (Negative) 11/14/20 16:01 Urine Blood Neg (Negative) 11/14/20 16:01 Urine Nitrite Neg (Negative) 11/14/20 16:01 Urine Bilirubin Neg (Negative) 11/14/20 16:01 Urine Urobilinogen < 2.0 mg/dL (<2.0) 11/14/20 16:01 Ur Leukocyte Esterase Neg (Negative) 11/14/20 16:01 Urine WBC (Auto) 1.0 /HPF (0.0-6.0) 11/14/20 16:01 Urine RBC (Auto) 1.0 /HPF (0.0-6.0) 11/14/20 16:01 U Epithel Cells (Auto) < 1.0 /HPF (0-13.0) 11/14/20 16:01 Urine Mucus Few /HPF 11/14/20 16:01 Urine Opiates Screen Presumptive negative 11/14/20 14:48 Urine Methadone Screen Presumptive negative 11/14/20 14:48 Ur Barbiturates Screen Presumptive negative 11/14/20 14:48 Ur Phencyclidine Scrn Presumptive negative 11/14/20 14:48 Ur Amphetamines Screen Presumptive negative 11/14/20 14:48 U Benzodiazepines Scrn Presumptive negative 11/14/20 14:48 Urine Cocaine Screen Presumptive negative 11/14/20 14:48 U Marijuana (THC) Screen Presumptive negative 11/14/20 14:48 Drugs of Abuse Note Disclamer 11/14/20 14:48 Plasma/Serum Alcohol 0.01 % (0-0.07) 11/14/20 14:06 Coronavirus (PCR) Positive (Negative) A 11/15/20 Unknown Kaufman/IV: Voiding Method External Female Catheter Active Medications - Current Medications Current Medications: Generic Name Dose Route Start Last Admin Trade Name Freq PRN Reason Stop Dose Admin Acetaminophen 650 mg 11/14/20 17:04 11/18/20 21:50 Acetaminophen 325 Mg/10.15 Ml Oral Liqd Unit Dose FEEDTUBE 650 mg Q6H PRN Administration Pain MILD(1-3)/Fever >100.5/PICKARD Albuterol 2.5 mg 11/14/20 17:04 Albuterol 2.5 Mg/3 Ml Nebu IH Q3HRT PRN Shortness Of Breath Lipase/Protease/Amylase 1 each 11/16/20 11:10 Lipase 10,500/Protease 25,000/Amylase 43,750 (Units) Dr Alvarez FEEDTUBE PRN PRN For Clogged Feeding Tube Dextrose 0 ml 11/15/20 04:13 11/15/20 04:46 Dextrose 50% In Water (25gm) 50 Ml Syringe IV 20 ml Q30MIN PRN Administration Hypoglycemia Protocol Enoxaparin Sodium 40 mg 11/15/20 22:00 11/18/20 21:50 Enoxaparin 40 Mg/0.4 Ml Inj SUB-Q 40 mg QDAY@2200 GLORIA Administration Protocol Famotidine 20 mg 11/18/20 10:00 11/18/20 21:50 Famotidine 20 Mg Tab PO 20 mg BID GLORIA Administration Hydrophilic Ointment 1 applic 11/14/20 14:00 Lip Therapy Vaseline TP Q2HR PRN Dry Lips Propofol 1,000 mg in 100 mls @ 2.041 mls/hr 11/14/20 14:00 11/17/20 12:11 Diprivan 10 Mg/Ml IV 0 mcg/kg/min TITR GLORIA 0 mls/hr Titration Protocol 5 MCG/KG/MIN Levofloxacin/Dextrose 750 mg in 150 mls @ 100 mls/hr 11/17/20 14:00 11/18/20 13:53 Levaquin 750mg/150ml IV 11/20/20 15:29 100 mls/hr Q24H GLORIA Administration Protocol Insulin Human Regular 0 units 11/16/20 00:00 11/18/20 19:00 Insulin Regular, Human 100 Units/1 Ml SUB-Q Not Given Q6H GLORIA Protocol Multi-Ingred Cream/Lotion/Oil/Oint 1 applic 11/14/20 14:00 Mineral Oil/Petrolatum, White Ophth Oint 3.5 Gm OU Q4HR PRN Dry Eye(s) Simple Syrup 15 ml 11/16/20 11:10 Simple Syrup 15 Ml FEEDTUBE PRN PRN Hypoglycemia Simple Syrup 30 ml 11/16/20 11:10 Simple Syrup 15 Ml FEEDTUBE PRN PRN Hypoglycemia Sodium Bicarbonate 325 mg 11/16/20 11:10 Sodium Bicarbonate 325 Mg Tab FEEDTUBE PRN PRN For Clogged Feeding Tube Sodium Chloride 10 ml 11/14/20 22:00 11/18/20 21:51 Sodium Chloride 0.9% 10 Ml Flush Syringe IV 10 ml BID GLORIA Administration Sodium Chloride 10 ml 11/14/20 17:04 Sodium Chloride 0.9% 10 Ml Flush Syringe IV PRN PRN LINE FLUSH Nutrition/Malnutrition Assess - Dietary Evaluation Nutrition/Malnutrition Findings: Nutrition Notes Start: 11/15/20 08:22 Freq: Status: Active Protocol: Document 11/18/20 11:30 CW (Rec: 11/18/20 14:51 CW [id number]) Nutrition Notes Initial or Follow up Reassessment Current Diagnosis Respiratory Failure,Stroke Other Pertinent Diagnosis Lung CA with Mets, Aphasia, Metabolic Encephalopathy Current Diet TF - Promote at 60 ml/hr Labs/Tests BG 161 Pertinent Medications Humulin Height 5 ft 9 in Weight 64 kg [place] Body Weight (kg) 65.90 BMI 20.8 Weight Status Appropriate Subjective/Other Information F/U for TF tolerance and ONS. Last night TF was no increased to goal d/t residuals. TF currently running at 45 ml/hr and is being well tolerated as of this morning. POC is to extubated today Percent of energy/protein needs met: 74%/88% Burn Absent Trauma Absent GI Symptoms None Current % PO Negligible Minimum of two criteria No physical signs of malnutrition #1 Nutrition Diagnosis Inadequate oral intake Diagnosis Progress(for reassessment Continues documentation) Is patient on ventilator? Yes Is Patient Ambulatory and/or Out of Bed No REE-([facility]-confined to bed) [phone] Calculation Used for Recommendations [facility] Additional Notes Protein needs are 77-128g (1.2 -2g/kg) Fluid needs are 1ml/kcal Nutrition Intervention Change Diet Order: Continue TF or extubation Nutrition Support: Promote at 60ml/hr Flush with 50ml q6h Kcal 1,440 Protein (gm) 90 Fluid (mL) 1,208 Goal #1 Meet at least 80% of kcal and protein needs Anticipated Discharge Needs: Unable to determine at this time Follow-Up By: 11/20/20 Additional Comments F/U for vent status; TF tolerance
[2020-11-18] MEDS: ACETAMINOPHEN 325 MG/10.15 ML ORAL LIQD UNIT DOSE FEEDTUBE PRN (21:50)
[2020-11-18] MEDS: ENOXAPARIN 40 MG/0.4 ML INJ SUB-Q SCH (21:50)
[2020-11-19] MEDS: INSULIN REGULAR, HUMAN 100 UNITS/1 ML SUB-Q SCH ×3 (00:29→12:23)
--- NOTE | 2020-11-19 03:02 | XRay Report ---
CHEST - 1 VIEW INDICATION: follow up respiratory failure COMPARISON: Yesterday FINDINGS: SUPPORT DEVICES: Stable support device positioning. HEART: Stable cardiomediastinal silhouette. LUNGS/PLEURA: Extensive nodularity again seen throughout both lungs, unchanged. ADDITIONAL FINDINGS: None. IMPRESSION: Unchanged exam. Signer Name: Suhail Bowser MD Signed: 11/19/2020 2:58 AM Workstation Name: [id number]
[2020-11-19] MEDS: ACETAMINOPHEN 325 MG/10.15 ML ORAL LIQD UNIT DOSE FEEDTUBE PRN ×2 (08:43→16:55)
[2020-11-19] MEDS: FAMOTIDINE 20 MG TAB PO SCH (09:14)
--- NOTE | 2020-11-19 09:54 | Consultation ---
History of Present Illness Consult date: 11/19/20 Reason for Consult: AMS Chief complaint: AMS History of present illness: 70 yo female with ?stroke, metastatic lung cancer, who was found down ith a left gaze deviation with a NIHSS of 26 with NCHCT revealing a left cerebellar calcified mass. Noted to be hypoglycemic initially but no noted improvement in mentation w/ normoglycemia. Patient is noted to be COVID-19+ during this admission. Per RN, no seizures noted; she is aphasic and tracks across the room. Televideo not available secondary to COVID-19 isolation status. Past History Past Medical History: cancer, stroke Past Surgical History: No surgical history, Other (Reviewed) Social history: . denies: smoking, alcohol abuse, prescription drug abuse Family history: hypertension Medications and Allergies Allergies Allergy/AdvReac Type Severity Reaction Status Date / Time No Known Allergies Allergy Unverified 11/14/20 14:09 Active Meds: Active Medications Acetaminophen (Acetaminophen 325 Mg/10.15 Ml Oral Liqd Unit Dose) 650 mg FEEDTUBE Q6H PRN PRN Reason: Pain MILD(1-3)/Fever >100.5/PICKARD Last Admin: 11/19/20 08:43 Dose: 650 mg Documented by: Albuterol (Albuterol 2.5 Mg/3 Ml Nebu) 2.5 mg IH Q3HRT PRN PRN Reason: Shortness Of Breath Lipase/Protease/Amylase (Lipase 10,500/Protease 25,000/Amylase 43,750 (Units) Dr Alvarez) 1 each FEEDTUBE PRN PRN PRN Reason: For Clogged Feeding Tube Dextrose (Dextrose 50% In Water (25gm) 50 Ml Syringe) 0 ml IV Q30MIN PRN; Protocol PRN Reason: Hypoglycemia Last Admin: 11/15/20 04:46 Dose: 20 ml Documented by: Enoxaparin Sodium (Enoxaparin 40 Mg/0.4 Ml Inj) 40 mg SUB-Q QDAY@2200 GLORIA; Protocol Last Admin: 11/18/20 21:50 Dose: 40 mg Documented by: Famotidine (Famotidine 20 Mg Tab) 20 mg PO BID GLORIA Last Admin: 11/19/20 09:14 Dose: 20 mg Documented by: Hydrophilic Ointment (Lip Therapy Vaseline) 1 applic TP Q2HR PRN PRN Reason: Dry Lips Levofloxacin/Dextrose (Levaquin 750mg/150ml) 750 mg in 150 mls @ 100 mls/hr IV Q24H GLORIA; Protocol Stop: 11/20/20 15:29 Last Admin: 11/18/20 13:53 Dose: 100 mls/hr Documented by: Insulin Human Regular (Insulin Regular, Human 100 Units/1 Ml) 0 units SUB-Q Q6H GLORIA; Protocol Last Admin: 11/19/20 05:50 Dose: Not Given Documented by: Multi-Ingred Cream/Lotion/Oil/Oint (Mineral Oil/Petrolatum, White Ophth Oint 3.5 Gm) 1 applic OU Q4HR PRN PRN Reason: Dry Eye(s) Simple Syrup (Simple Syrup 15 Ml) 15 ml FEEDTUBE PRN PRN PRN Reason: Hypoglycemia Simple Syrup (Simple Syrup 15 Ml) 30 ml FEEDTUBE PRN PRN PRN Reason: Hypoglycemia Sodium Bicarbonate (Sodium Bicarbonate 325 Mg Tab) 325 mg FEEDTUBE PRN PRN PRN Reason: For Clogged Feeding Tube Sodium Chloride (Sodium Chloride 0.9% 10 Ml Flush Syringe) 10 ml IV BID GLORIA Last Admin: 11/19/20 09:14 Dose: 10 ml Documented by: Sodium Chloride (Sodium Chloride 0.9% 10 Ml Flush Syringe) 10 ml IV PRN PRN PRN Reason: LINE FLUSH Physical Examination - Vital Signs Vital Signs: Vital Signs Temp Pulse Resp BP Pulse Ox 98.3 F 87 10 L 154/98 99 11/14/20 14:00 11/14/20 14:00 11/14/20 14:00 11/14/20 14:00 11/14/20 14:00 - Physical Exam Narrative exam: Televideo not available secondary to COVID-19 isolation status. Results - Laboratory Findings CBC and BMP: 11/15/20 04:19 11/18/20 14:35 Abnormal Lab Findings: Abnormal Labs 11/14/20 11/14/20 11/14/20 14:00 14:06 14:06 RBC 5.27 H Hgb 14.7 H Hct 43.7 H MCH RDW 15.8 H Lymph % (Auto) 6.2 L Lymph # (Auto) 0.7 L Seg Neutrophils % 89.2 H Seg Neutrophils # 9.5 H Thrombin Time 19.8 H ABG pH POC ABG pCO2 POC ABG pO2 ABG Oxyhemoglobin ABG Sodium ABG Potassium ABG Glucose Sodium Chloride Glucose POC Glucose 150 H Calcium Phosphorus Total Creatine Kinase C-Reactive Protein Total Protein Albumin Arterial Blood Glucose Arterial Blood Ionized Calcium Coronavirus (PCR) 11/14/20 11/14/20 11/15/20 14:06 14:42 04:07 RBC Hgb Hct MCH RDW Lymph % (Auto) Lymph # (Auto) Seg Neutrophils % Seg Neutrophils # Thrombin Time ABG pH POC ABG pCO2 POC ABG pO2 71.3 L ABG Oxyhemoglobin 92.6 L ABG Sodium ABG Potassium ABG Glucose 118 H Sodium 129 L Chloride 93 L Glucose 155 H POC Glucose 50 L Calcium Phosphorus Total Creatine Kinase 185 H C-Reactive Protein Total Protein 10.4 H Albumin 3.7 L Arterial Blood Glucose 118 H Arterial Blood Ionized Calcium 4.4 L Coronavirus (PCR) 11/15/20 11/15/20 11/15/20 04:19 04:19 05:28 RBC Hgb Hct MCH 26 L RDW 15.9 H Lymph % (Auto) 8.1 L Lymph # (Auto) 0.8 L Seg Neutrophils % 84.8 H Seg Neutrophils # 8.3 H Thrombin Time ABG pH POC ABG pCO2 POC ABG pO2 ABG Oxyhemoglobin ABG Sodium ABG Potassium ABG Glucose Sodium Chloride Glucose 53 L POC Glucose 156 H Calcium 8.1 L Phosphorus Total Creatine Kinase C-Reactive Protein Total Protein Albumin 2.7 L Arterial Blood Glucose Arterial Blood Ionized Calcium Coronavirus (PCR) 11/15/20 11/15/20 11/15/20 06:20 11:43 15:39 RBC Hgb Hct MCH RDW Lymph % (Auto) Lymph # (Auto) Seg Neutrophils % Seg Neutrophils # Thrombin Time ABG pH 7.486 H POC ABG pCO2 31.5 L POC ABG pO2 ABG Oxyhemoglobin ABG Sodium ABG Potassium ABG Glucose 58 L Sodium Chloride Glucose POC Glucose 180 H Calcium Phosphorus 1.90 L Total Creatine Kinase C-Reactive Protein 4.80 H Total Protein Albumin Arterial Blood Glucose 58 L Arterial Blood Ionized Calcium Coronavirus (PCR) 11/15/20 11/15/20 11/15/20 17:01 23:24 Unknown RBC Hgb Hct MCH RDW Lymph % (Auto) Lymph # (Auto) Seg Neutrophils % Seg Neutrophils # Thrombin Time ABG pH POC ABG pCO2 POC ABG pO2 ABG Oxyhemoglobin ABG Sodium ABG Potassium ABG Glucose Sodium Chloride Glucose POC Glucose 227 H 256 H Calcium Phosphorus Total Creatine Kinase C-Reactive Protein Total Protein Albumin Arterial Blood Glucose Arterial Blood Ionized Calcium Coronavirus (PCR) Positive A 11/16/20 11/16/20 11/16/20 03:58 05:13 12:02 RBC Hgb Hct MCH RDW Lymph % (Auto) Lymph # (Auto) Seg Neutrophils % Seg Neutrophils # Thrombin Time ABG pH 7.525 H POC ABG pCO2 POC ABG pO2 ABG Oxyhemoglobin ABG Sodium 132.4 L ABG Potassium ABG Glucose 204 H Sodium Chloride Glucose POC Glucose 190 H 218 H Calcium Phosphorus Total Creatine Kinase C-Reactive Protein Total Protein Albumin Arterial Blood Glucose 204 H Arterial Blood Ionized Calcium Coronavirus (PCR) 11/16/20 11/16/20 11/17/20 17:05 23:35 03:42 RBC Hgb Hct MCH RDW Lymph % (Auto) Lymph # (Auto) Seg Neutrophils % Seg Neutrophils # Thrombin Time ABG pH 7.503 H POC ABG pCO2 POC ABG pO2 63.5 L ABG Oxyhemoglobin ABG Sodium 128.6 L ABG Potassium ABG Glucose 227 H Sodium Chloride Glucose POC Glucose 224 H 237 H Calcium Phosphorus Total Creatine Kinase C-Reactive Protein Total Protein Albumin Arterial Blood Glucose 227 H Arterial Blood Ionized Calcium Coronavirus (PCR) 11/17/20 11/17/20 11/17/20 05:23 11:44 14:27 RBC Hgb Hct MCH RDW Lymph % (Auto) Lymph # (Auto) Seg Neutrophils % Seg Neutrophils # Thrombin Time ABG pH 7.481 H POC ABG pCO2 POC ABG pO2 69.1 L ABG Oxyhemoglobin ABG Sodium 126.7 L ABG Potassium ABG Glucose 329 H Sodium Chloride Glucose POC Glucose 221 H 240 H Calcium Phosphorus Total Creatine Kinase C-Reactive Protein Total Protein Albumin Arterial Blood Glucose 329 H Arterial Blood Ionized Calcium Coronavirus (PCR) 11/17/20 11/17/20 11/18/20 17:32 18:38 00:05 RBC Hgb Hct MCH RDW Lymph % (Auto) Lymph # (Auto) Seg Neutrophils % Seg Neutrophils # Thrombin Time ABG pH POC ABG pCO2 POC ABG pO2 ABG Oxyhemoglobin ABG Sodium ABG Potassium ABG Glucose Sodium Chloride Glucose POC Glucose 221 H 196 H 202 H Calcium Phosphorus Total Creatine Kinase C-Reactive Protein Total Protein Albumin Arterial Blood Glucose Arterial Blood Ionized Calcium Coronavirus (PCR) 11/18/20 11/18/20 11/18/20 04:00 05:23 12:13 RBC Hgb Hct MCH RDW Lymph % (Auto) Lymph # (Auto) Seg Neutrophils % Seg Neutrophils # Thrombin Time ABG pH 7.486 H POC ABG pCO2 POC ABG pO2 76.3 L ABG Oxyhemoglobin ABG Sodium 128.7 L ABG Potassium ABG Glucose 205 H Sodium Chloride Glucose POC Glucose 177 H 161 H Calcium Phosphorus Total Creatine Kinase C-Reactive Protein Total Protein Albumin Arterial Blood Glucose 205 H Arterial Blood Ionized Calcium Coronavirus (PCR) 11/18/20 11/18/20 11/18/20 14:30 14:35 17:25 RBC Hgb Hct MCH RDW Lymph % (Auto) Lymph # (Auto) Seg Neutrophils % Seg Neutrophils # Thrombin Time ABG pH 7.496 H POC ABG pCO2 POC ABG pO2 58.6 L ABG Oxyhemoglobin 91.6 L ABG Sodium 129.5 L ABG Potassium 4.6 H ABG Glucose 165 H Sodium 133 L Chloride 96.5 L Glucose 152 H POC Glucose 143 H Calcium 8.1 L Phosphorus Total Creatine Kinase C-Reactive Protein Total Protein Albumin Arterial Blood Glucose 165 H Arterial Blood Ionized Calcium Coronavirus (PCR) 11/18/20 11/18/20 11/19/20 19:11 23:29 05:25 RBC Hgb Hct MCH RDW Lymph % (Auto) Lymph # (Auto) Seg Neutrophils % Seg Neutrophils # Thrombin Time ABG pH POC ABG pCO2 POC ABG pO2 ABG Oxyhemoglobin ABG Sodium ABG Potassium ABG Glucose Sodium Chloride Glucose POC Glucose 157 H 176 H 147 H Calcium Phosphorus Total Creatine Kinase C-Reactive Protein Total Protein Albumin Arterial Blood Glucose Arterial Blood Ionized Calcium Coronavirus (PCR) Assessment and Plan 70 yo female, who presents being found down, hypoglycemic, w/ a left gaze deviation initially with concern for an underlying ictal events vs. an ischemic event, in the setting of metastatic cancer and COVID-19. 1. Seizure - EEG pending; ordered Keppra 500 mg iv bid. 2. Acute / Subacute Ischemic Stroke - ASA 325 mg PO vs. Aspirin 300 mg NM qday, MRI Brain w/ wo contrast (if no contraindications), TTEcho, further workup based on MR findings; telemetry, SBP goal 160-200 mmHg and DBP 80-100 mmHg for now and may be normalized if no acute stroke on MR Brain. Statin therapy for a goal LDL of 70, when patient passes swallow evaluation. PT/OT/ST/Swallow evaluation. Long-term risk-factor modification, including a strict diet/exercise regimen for secondary stroke prophylaxis. 3. Cerebral Metastasis - MRI Brain w/ wo contrast; hypercoaguable state w/ covid-19 also, recommend MRV Head w/o contrast, if no contraindications. 4. Meningioma - monitor clinically. 5. Per primary team progress note, daughter has requested hospice care. Neurology will signoff. Billy Cheema MD Neurology
[2020-11-19] MEDS ORDERED: levETIRAcetam 500 MG in DEXTROSE 5% IN WATER 100 ML IV SCH (12:00)
--- NOTE | 2020-11-19 13:17 | Progress Note ---
Assessment and Plan Acute hypoxemic respiratory failure, on mechanical ventilatory support. Acute encephalopathy, possibly on chronic. Acute cerebrovascular accident, subacute. Metastatic pulmonary nodules, possibly lung cancer. Hyponatremia. Elevated serum creatine kinase - continue prn BIPAP - continue hospice evaluation - transfer to medical floor - continue care as below otherwise; - complete empiric CAP coverage X 5 days with Levaquin - follow EEG and address - neurology evaluation ongoing - continue to wean supplemental oxygen for target O2 sat's > 92% acutely - aspiration precautions - continue lung protective strategies - prn bronchodilators with pulmonary hygiene per RT - continue accuchecks with glycemic control per SSI for target blood glucose of < 180 mg/dL; avoid hypoglycemia - avoid nephrotoxins, renally dose all medications - continue to avoid benzodiazepine's, reduce the possibility of delirium - prn analgesia per CPOT score - Maintenance of sleep-wake cycle, avoid delirium - enteral nutritional support at goal rate as tolerated - G.I. & VTE prophylaxis - PT/OT/ROM exercises - continue mobility protocols for pressure ulcer prophylaxis - Monitor hemodynamics closely - continue other care per attending / other consultants - discharge planning ongoing concurrently COVID SPECIFIC INTERVENTIONS - Remdesivir as per ID/Pulmonary developed protocols - systemic steroids for severe COVID-19 infection empirically - follow repeat COVID tests results - zinc and vitamin C supplementation - Monitor inflammatory markers per facility protocol - ferritin, Ddimer, CRP - therapeutic anticoagulation per system Protocol based on d-dimer and clinical considerations - Continue contact and airborne isolation .... Re-evaluate in am & prn Subjective Date of service: 11/19/20 Principal diagnosis: Ac. hypoxemic resp failure; Ac. encephalopathy; Acute CVA; Metast. lung CA Interval history: Patient is seen today for: Acute hypoxemic respiratory failure; Acute encephalopathy; Acute cerebrovascular accident; Metastatic pulmonary nodules (lung cancer per daughter) Seen and examined at bedside; 24hour events reviewed; nursing and respiratory care staff consulted; no adverse overnight events reported to me; resting peacefully in bed; doing well post extubation; AMS is persistent; on 40% venti- mask; seen by hospice team and evaluation ongoing Objective Vital Signs - 12hr 11/19/20 11/19/20 11/19/20 01:31 02:00 02:31 Temperature Pulse Rate 85 83 82 Respiratory Rate Blood Pressure 112/46 112/55 112/55 O2 Sat by Pulse 98 95 Oximetry 11/19/20 11/19/20 11/19/20 03:00 03:32 03:52 Temperature 99.1 F Pulse Rate 81 85 Respiratory 17 21 Rate Blood Pressure 112/55 125/58 O2 Sat by Pulse 96 93 Oximetry 11/19/20 11/19/20 11/19/20 04:00 04:30 05:00 Temperature Pulse Rate 86 81 120 H Respiratory 21 16 23 Rate Blood Pressure 134/63 134/63 132/57 O2 Sat by Pulse 95 96 97 Oximetry 11/19/20 11/19/20 11/19/20 05:30 06:00 07:00 Temperature Pulse Rate 88 91 H 86 Respiratory 21 23 18 Rate Blood Pressure 132/57 135/54 131/44 O2 Sat by Pulse 95 94 97 Oximetry 11/19/20 11/19/20 11/19/20 07:46 08:00 08:21 Temperature 100.4 F H Pulse Rate 83 Respiratory 19 Rate Blood Pressure 121/40 O2 Sat by Pulse 96 93 Oximetry 11/19/20 11/19/20 11/19/20 09:00 10:00 11:00 Temperature Pulse Rate 93 H 93 H 92 H Respiratory 20 20 20 Rate Blood Pressure 110/52 108/49 111/49 O2 Sat by Pulse 98 Oximetry 11/19/20 12:30 Temperature 98.0 F Pulse Rate Respiratory Rate Blood Pressure O2 Sat by Pulse Oximetry Constitutional: other (elderly female without increased respiratory effort at rest on MVS) Eyes: non-icteric ENT: oropharynx moist, other (extubated) Neck: supple, no JVD Effort: mildly labored Ascultation: Bilateral: diminished breath sounds, rhonchi (scant) Percussion: Bilateral: not dull Cardiovascular: regular rate and rhythm Gastrointestinal: normoactive bowel sounds, soft, non-tender, non-distended Integumentary: normal Extremities: no cyanosis, no edema, pulses normal, no ischemia or petechiae Neurologic: pupils equal and round, unable to assess Psychiatric: other (unable to assess re: AMS) CBC and BMP: 11/15/20 04:19 11/18/20 14:35 ABG, PT/INR, D-dimer: ABG ABG pH 7.496 (7.320-7.450) H 11/18/20 14:30 POC ABG pCO2 36.2 mmHg (32.0-48.0) 11/18/20 14:30 POC ABG pO2 58.6 mmHg (83-108) L 11/18/20 14:30 POC ABG HCO3 27.3 11/18/20 14:30 ABG O2 Saturation 92.8 (0-100) 11/18/20 14:30 PT/INR, D-dimer PT 12.8 Sec. (12.2-14.9) 11/14/20 14:06 INR 0.98 (0.87-1.13) 11/14/20 14:06 Abnormal lab findings: Abnormal Labs 11/14/20 11/14/20 11/14/20 14:00 14:06 14:06 RBC 5.27 H Hgb 14.7 H Hct 43.7 H MCH RDW 15.8 H Lymph % (Auto) 6.2 L Lymph # (Auto) 0.7 L Seg Neutrophils % 89.2 H Seg Neutrophils # 9.5 H Thrombin Time 19.8 H ABG pH POC ABG pCO2 POC ABG pO2 ABG Oxyhemoglobin ABG Sodium ABG Potassium ABG Glucose Sodium Chloride Glucose POC Glucose 150 H Calcium Phosphorus Total Creatine Kinase C-Reactive Protein Total Protein Albumin Arterial Blood Glucose Arterial Blood Ionized Calcium Coronavirus (PCR) 11/14/20 11/14/20 11/15/20 14:06 14:42 04:07 RBC Hgb Hct MCH RDW Lymph % (Auto) Lymph # (Auto) Seg Neutrophils % Seg Neutrophils # Thrombin Time ABG pH POC ABG pCO2 POC ABG pO2 71.3 L ABG Oxyhemoglobin 92.6 L ABG Sodium ABG Potassium ABG Glucose 118 H Sodium 129 L Chloride 93 L Glucose 155 H POC Glucose 50 L Calcium Phosphorus Total Creatine Kinase 185 H C-Reactive Protein Total Protein 10.4 H Albumin 3.7 L Arterial Blood Glucose 118 H Arterial Blood Ionized Calcium 4.4 L Coronavirus (PCR) 11/15/20 11/15/20 11/15/20 04:19 04:19 05:28 RBC Hgb Hct MCH 26 L RDW 15.9 H Lymph % (Auto) 8.1 L Lymph # (Auto) 0.8 L Seg Neutrophils % 84.8 H Seg Neutrophils # 8.3 H Thrombin Time ABG pH POC ABG pCO2 POC ABG pO2 ABG Oxyhemoglobin ABG Sodium ABG Potassium ABG Glucose Sodium Chloride Glucose 53 L POC Glucose 156 H Calcium 8.1 L Phosphorus Total Creatine Kinase C-Reactive Protein Total Protein Albumin 2.7 L Arterial Blood Glucose Arterial Blood Ionized Calcium Coronavirus (PCR) 11/15/20 11/15/20 11/15/20 06:20 11:43 15:39 RBC Hgb Hct MCH RDW Lymph % (Auto) Lymph # (Auto) Seg Neutrophils % Seg Neutrophils # Thrombin Time ABG pH 7.486 H POC ABG pCO2 31.5 L POC ABG pO2 ABG Oxyhemoglobin ABG Sodium ABG Potassium ABG Glucose 58 L Sodium Chloride Glucose POC Glucose 180 H Calcium Phosphorus 1.90 L Total Creatine Kinase C-Reactive Protein 4.80 H Total Protein Albumin Arterial Blood Glucose 58 L Arterial Blood Ionized Calcium Coronavirus (PCR) 11/15/20 11/15/20 11/15/20 17:01 23:24 Unknown RBC Hgb Hct MCH RDW Lymph % (Auto) Lymph # (Auto) Seg Neutrophils % Seg Neutrophils # Thrombin Time ABG pH POC ABG pCO2 POC ABG pO2 ABG Oxyhemoglobin ABG Sodium ABG Potassium ABG Glucose Sodium Chloride Glucose POC Glucose 227 H 256 H Calcium Phosphorus Total Creatine Kinase C-Reactive Protein Total Protein Albumin Arterial Blood Glucose Arterial Blood Ionized Calcium Coronavirus (PCR) Positive A 11/16/20 11/16/20 11/16/20 03:58 05:13 12:02 RBC Hgb Hct MCH RDW Lymph % (Auto) Lymph # (Auto) Seg Neutrophils % Seg Neutrophils # Thrombin Time ABG pH 7.525 H POC ABG pCO2 POC ABG pO2 ABG Oxyhemoglobin ABG Sodium 132.4 L ABG Potassium ABG Glucose 204 H Sodium Chloride Glucose POC Glucose 190 H 218 H Calcium Phosphorus Total Creatine Kinase C-Reactive Protein Total Protein Albumin Arterial Blood Glucose 204 H Arterial Blood Ionized Calcium Coronavirus (PCR) 11/16/20 11/16/20 11/17/20 17:05 23:35 03:42 RBC Hgb Hct MCH RDW Lymph % (Auto) Lymph # (Auto) Seg Neutrophils % Seg Neutrophils # Thrombin Time ABG pH 7.503 H POC ABG pCO2 POC ABG pO2 63.5 L ABG Oxyhemoglobin ABG Sodium 128.6 L ABG Potassium ABG Glucose 227 H Sodium Chloride Glucose POC Glucose 224 H 237 H Calcium Phosphorus Total Creatine Kinase C-Reactive Protein Total Protein Albumin Arterial Blood Glucose 227 H Arterial Blood Ionized Calcium Coronavirus (PCR) 11/17/20 11/17/20 11/17/20 05:23 11:44 14:27 RBC Hgb Hct MCH RDW Lymph % (Auto) Lymph # (Auto) Seg Neutrophils % Seg Neutrophils # Thrombin Time ABG pH 7.481 H POC ABG pCO2 POC ABG pO2 69.1 L ABG Oxyhemoglobin ABG Sodium 126.7 L ABG Potassium ABG Glucose 329 H Sodium Chloride Glucose POC Glucose 221 H 240 H Calcium Phosphorus Total Creatine Kinase C-Reactive Protein Total Protein Albumin Arterial Blood Glucose 329 H Arterial Blood Ionized Calcium Coronavirus (PCR) 11/17/20 11/17/20 11/18/20 17:32 18:38 00:05 RBC Hgb Hct MCH RDW Lymph % (Auto) Lymph # (Auto) Seg Neutrophils % Seg Neutrophils # Thrombin Time ABG pH POC ABG pCO2 POC ABG pO2 ABG Oxyhemoglobin ABG Sodium ABG Potassium ABG Glucose Sodium Chloride Glucose POC Glucose 221 H 196 H 202 H Calcium Phosphorus Total Creatine Kinase C-Reactive Protein Total Protein Albumin Arterial Blood Glucose Arterial Blood Ionized Calcium Coronavirus (PCR) 11/18/20 11/18/20 11/18/20 04:00 05:23 12:13 RBC Hgb Hct MCH RDW Lymph % (Auto) Lymph # (Auto) Seg Neutrophils % Seg Neutrophils # Thrombin Time ABG pH 7.486 H POC ABG pCO2 POC ABG pO2 76.3 L ABG Oxyhemoglobin ABG Sodium 128.7 L ABG Potassium ABG Glucose 205 H Sodium Chloride Glucose POC Glucose 177 H 161 H Calcium Phosphorus Total Creatine Kinase C-Reactive Protein Total Protein Albumin Arterial Blood Glucose 205 H Arterial Blood Ionized Calcium Coronavirus (PCR) 11/18/20 11/18/20 11/18/20 14:30 14:35 17:25 RBC Hgb Hct MCH RDW Lymph % (Auto) Lymph # (Auto) Seg Neutrophils % Seg Neutrophils # Thrombin Time ABG pH 7.496 H POC ABG pCO2 POC ABG pO2 58.6 L ABG Oxyhemoglobin 91.6 L ABG Sodium 129.5 L ABG Potassium 4.6 H ABG Glucose 165 H Sodium 133 L Chloride 96.5 L Glucose 152 H POC Glucose 143 H Calcium 8.1 L Phosphorus Total Creatine Kinase C-Reactive Protein Total Protein Albumin Arterial Blood Glucose 165 H Arterial Blood Ionized Calcium Coronavirus (PCR) 11/18/20 11/18/20 11/19/20 19:11 23:29 05:25 RBC Hgb Hct MCH RDW Lymph % (Auto) Lymph # (Auto) Seg Neutrophils % Seg Neutrophils # Thrombin Time ABG pH POC ABG pCO2 POC ABG pO2 ABG Oxyhemoglobin ABG Sodium ABG Potassium ABG Glucose Sodium Chloride Glucose POC Glucose 157 H 176 H 147 H Calcium Phosphorus Total Creatine Kinase C-Reactive Protein Total Protein Albumin Arterial Blood Glucose Arterial Blood Ionized Calcium Coronavirus (PCR) 11/19/20 11:48 RBC Hgb Hct MCH RDW Lymph % (Auto) Lymph # (Auto) Seg Neutrophils % Seg Neutrophils # Thrombin Time ABG pH POC ABG pCO2 POC ABG pO2 ABG Oxyhemoglobin ABG Sodium ABG Potassium ABG Glucose Sodium Chloride Glucose POC Glucose 229 H Calcium Phosphorus Total Creatine Kinase C-Reactive Protein Total Protein Albumin Arterial Blood Glucose Arterial Blood Ionized Calcium Coronavirus (PCR) Chest x-ray: image reviewed (stable) Allied health notes reviewed: nursing
--- NOTE | 2020-11-19 15:00 | Discharge Summary ---
Providers - Providers Date of Admission: 11/14/20 17:04 Date of discharge: 11/19/20 Attending physician: JANIE SHIPLEY 11/14/20 17:02 Consult to Physician [CONS] Routine Comment: Consulting Provider: ESPINOZA INIGUEZ Physician Instructions: Reason For Exam: ICU management 11/14/20 18:27 Consult to Dietitian/Nutrition [CONS] Routine Physician Instructions: Reason For Exam: Reason for Consult: Evaluate nutritional intake 11/15/20 15:00 Consult to Physician [CONS] Routine Comment: Consulting Provider: GISSELLE HERNANDEZ Physician Instructions: Reason For Exam: COVID-19 infection 11/15/20 15:03 Consult to Dietitian/Nutrition [CONS] Routine Physician Instructions: Reason For Exam: Reason for Consult: Write/Manage Tube Feeding 11/15/20 15:54 Consult to Case Management [CONS] Routine Services Needed at Discharge: Other Additional Physician Instructions: hospice 11/17/20 16:54 Consult to Physician [CONS] Routine Comment: Consulting Provider: KARINA HUGGINS Physician Instructions: Reason For Exam: encephalopathy/ams Primary care physician: RIVETER Hospitalization Condition: Stable Hospital course: This is a 70-year-old female with 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 Patient was found to have a focal neurological deficit with symptoms consistent with CVA, hypoxemia and inability to protect her airway the patient was intubated and placed on mechanical ventilation. Patient was found to have acute encephalopathy, metastatic lung cancer. Patient was admitted to the ICU as a COVID-19 PUI with consults to infectious disease, neurology and [facility]. On 11/15 family requested DNR status and hospice placement. on 11/17 patient was febrile to 102.1 and she was started on antibiotic therapy for CAP coverage for 5 days. Given COVID-19 positive status patient would not qualify for inpatient hospice care and will need home hospice. On she was on a CPAP trial and extubated the patient to BiPAP nightly as needed. She is now on venti mask and hospice has evaluated her. She will be diachgred home to home hospice and care will take over care. Acute hypoxemic respiratory failure COVID-19 infection Metastatic lung cancer Possible acute CVA Metabolic encephalopathy Hyponatremia History of CVA with aphasia Vascular dementia Severe protein calorie malnutrition Hyponatremia Hypochloremia -CCM, neurology, ID consulted, appreciate recommendations -Non contrast CT head revealed a left cerebellar calcified mass. -Frequent neuro checks -EEG pending -Droplet/Contact isolation -11/18 extubated -Tube feeding -abx for CAP coverage Disposition: DC-50 TO HOSPICE (HOME) Final Discharge Diagnosis (Prints w/discharge instructions): Acute hypoxemic respiratory failure. COVID-19 infection. Metastatic lung cancer. Possible acute CVA. Metabolic encephalopathy. Hyponatremia. History of CVA with aphasia. Vascular dementia. Severe protein calorie malnutrition. Hyponatre darvin. Hypochloremia Time spent for discharge: 35 Core Measure Documentation - Palliative Care Palliative Care/ Comfort Measures: Hospice Care - Core Measures Any of the following diagnoses?: none Exam - Constitutional Vitals: Temp Pulse Resp BP Pulse Ox 98.0 F 92 H 20 111/49 98 11/19/20 12:30 11/19/20 11:00 11/19/20 11:00 11/19/20 11:00 11/19/20 09:00 - EENT ENT: poor dentition - Neck Neck: Present: normal ROM - Respiratory Respiratory effort: normal - Cardiovascular Rhythm: regular - Extremities Extremities: no ischemia, pulses intact, pulses symmetrical, No edema, normal te mperature, normal color Peripheral Pulses: within normal limits - Abdominal General gastrointestinal: Present: soft, non-tender, non-distended, normal bowel sounds - Integumentary Integumentary: Present: warm, dry - Musculoskeletal Musculoskeletal: other (unresponsive) - Psychiatric Psychiatric: other (villar spontanously, does not follow commands or track/focus) Plan Activity: advance as tolerated Diet: advance as tolerated Special Instructions: home hospice Follow up with: PRIMARY CARE, [Primary Care Provider] - 3-5 Days
[2020-11-19 23:29] VITALS: BP 134/56
--- NOTE | 2020-11-20 09:33 | Electrocardiograph Report ---
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
== END 2020-11-19 23:36 | disposition hospice, home (50) | DRG 208 ==
LOC: EDBD → ED 13:33 → CC1 17:04
PROVIDERS: ADMIT Internal Medicine; ATTEND Internal Medicine
PROC: 0BH17EZ Insertion of Endotracheal Airway into Trachea, Via Natural or Artificial Opening (ICD-10-PCS; principal; 2020-11-14)
PROC: 5A1945Z Respiratory Ventilation, 24-96 Consecutive Hours (ICD-10-PCS; 2020-11-14)
PROC: 4A033R1 Measurement of Arterial Saturation, Peripheral, Percutaneous Approach (ICD-10-PCS; 2020-11-14)
DX: U07.1 COVID-19 (principal); J96.01 Acute respiratory failure with hypoxia; I63.9 Cerebral infarction, unspecified; G93.41 Metabolic encephalopathy; E43 Unspecified severe protein-calorie malnutrition; C34.90 Malignant neoplasm of unspecified part of unspecified bronchus or lung; E87.1 Hypo-osmolality and hyponatremia; C79.31 Secondary malignant neoplasm of brain; F03.90 Unspecified dementia, unspecified severity, without behavioral disturbance, psychotic disturbance, mood disturbance, and anxiety; E16.2 Hypoglycemia, unspecified; E87.8 Other disorders of electrolyte and fluid balance, not elsewhere classified; R29.726 NIHSS score 26; I67.2 Cerebral atherosclerosis; Z82.49 Family history of ischemic heart disease and other diseases of the circulatory system; Z63.4 Disappearance and death of family member; Z68.20 Body mass index [BMI] 20.0-20.9, adult; Z79.899 Other long term (current) drug therapy; Z79.891 Long term (current) use of opiate analgesic; Z79.01 Long term (current) use of anticoagulants
CPT/HCPCS: 36415; 36600; 70450; 70496; 70498; 71045; 74018; 80048; 80053; 80307; 80320; 81001; 82140; 82550; 82553; 82805; 82962; 83735; 84100; 84145; 84443; 84484; 85007; 85025; 85610; 85670; 85730; 86140; 87070; 87205; 93005; 93970; 94002; 94003; 96374; 96375; G0378; G0480; J0295; J0330; J1650; J1815; J1953; J1956; J2250; J2704; Q9967; U0003